=== PATIENT | male | born 1940 | race Caucasian/White ===

== ENCOUNTER → 2017-07-19 16:41 | Outpatient (CLI) | payer MEDICARE, OTHER, SELFPAY ==
--- NOTE | 2017-07-19 | PROSBIL_PTH ---
PATIENT: CONNOR GU LOC: [facility] U#:[id number] AGE/SX: 84/M ROOM: RE07/19/[address]: Dr. Philip Pennington MD : 1940 BED: DIS: SPEC #: [id number] RECD: 07/20/17 07:53 STATUS: PINKY REYES #: [id number] CHRISTIANO: 07/19/17 00:[address]: Philip Pennington DEPT: SURGICAL PATHOLOGY RECD BY: Aroldo Allan Tissues: A - PROSTATE RIGHT B - PROSTATE RIGHT C - PROSTATE RIGHT D - PROSTATE LEFT E - PROSTATE LEFT F - PROSTATE LEFT Procedures: PROSTATE BX HEADER OPERATION: Prostate biopsy PRE-OP DIAGNOSIS: Elevated PSA TISSUE SUBMITTED: A - Right apex, B - Right mid, C - Right base, D - Left apex, E - Left mid, F - Left base MICROSCOPIC DIAGNOSIS A. Right prostate, apex, core biopsy: Prostatic tissue, negative for malignancy. Focal mild chronic inflammation. B. Right prostate, mid, core biopsy: Prostatic tissue, negative for malignancy. Focal mild chronic inflammation. C. Right prostate, base, core biopsy: Prostatic tissue, negative for malignancy. D. Left prostate, apex, core biopsy: Prostatic adenocarcinoma: Jaci grade: 5+4=9 Number of cores involved: See comment. Proportion of tissue involved: ~60% Perineural invasion: Not identified. Greatest tumor length: 0.4 cm Chronic inflammation. E. Left prostate, mid, core biopsy: Prostatic adenocarcinoma: Cassatt grade: 5+5=10 Number of cores involved: 1 out of 2 Proportion of tissue involved: ~5-10% Perineural invasion: Not identified. Greatest tumor length: 0.2 cm See comment. F. Left prostate, base, core biopsy: Prostatic tissue, negative for malignancy. See comment. SJ:rg 07/23/17 COMMENT D. The specimen is fragmented and the exact number of cores involved cannot be assessed. E & F. Immunohistochemistry ([id number]) supports the above diagnosis. MICROSCOPIC DESCRIPTION Slides are reviewed. GROSS DESCRIPTION A - Received is one container designated prostate, right apex. The specimen consists of two elongated fragments of light cooper-white soft tissue measuring 1.2 and 1.5 cm in length and 0.1 cm in diameter. The specimen is totally submitted in one cassette. B - Received is one container designated prostate, right mid. The specimen consists of two elongated fragments of light cooper-white soft tissue measuring 1.2 and 1.8 cm in length and 0.1 cm in diameter. The specimen is totally submitted in one cassette. C - Received is one container designated prostate, right base. The specimen consists of two elongated fragments of light cooper-white soft tissue each measuring 1.2 cm in length and 0.1 cm in diameter. The specimen is totally submitted in one cassette. D - Received is one container designated prostate, left apex. The specimen consists of five elongated fragments of light cooper-white soft tissue measuring 0.3 to 0.5 cm in length and 0.1 cm in diameter. The specimen is totally submitted in one cassette. E - Received is one container designated prostate, left mid. The specimen consists of two elongated fragments of light cooper-white soft tissue measuring 0.3 and 1 cm in length and 0.1 cm in diameter. The specimen is totally submitted in one cassette. F - Received is one container designated prostate, left base. The specimen consists of two elongated fragments of light cooper-white soft tissue measuring 0.8 and 1.2 cm in length and 0.1 cm in diameter. The specimen is totally submitted in one cassette. / SJ:rg 07/20/17 TC:0 CPT: G0146
--- NOTE | 2017-07-19 | IMM_PTH ---
PATIENT: CONNOR GU LOC: [facility] U#:[id number] AGE/SX: 84/M ROOM: RE07/19/[address]: Dr. Philip Pennington MD : 1940 BED: DIS: SPEC #: [id number] RECD: 07/23/17 11:32 STATUS: PINKY RECarmen #: [id number] CHRISTIANO: 07/19/17 00:[address]: Philip Pennington DEPT: IMMUNOHISTOCHEMISTRY RECD BY: Natty Harrington ENTERED: 07/23/17 11:34 SP TYPE: IMMUNO OTHR DR: Miranda Jacobs, FOOD COURT TEAM MEMBER-C Tissues: E - PROSTATE LEFT F - PROSTATE LEFT Procedures: 34BE12 (add) P40 (add) 34BE12 (initial) PHYSICIAN & INSTITUTION [place] [id number] SPECIMEN INFORMATION: Tissue Source: E - Left prostate, mid, core biopsy, F - Left prostate, base, core biopsy Clinical Info: Elevated PSA Specimen Number: [id number] E & F CPT code: 99482, 12065 x3 METHODOLOGY: Deparaffinized sections of prefer/formalin-fixed tissue or PAP/DQ stained slides are incubated with monoclonal/polyclonal antibodies/oligonucleotide probes. Localization is made via biotin free immunoperoxidase method. Appropriate controls are performed and reacted as expected. Results on target cell population are indicated in the following table: RESULTS: ANTIBODY / CLONE RESULT Block E P40 (BC28) negative 34BE12 (34BE12) negative Block F P40 (BC28) positive 34BE12 (34BE12) positive These tests were developed and their performance characteristics determined by [facility]. They may not have been cleared or approved by the U.S. Food and Drug Administration. The FDA has determined that such clearance or approval is not necessary. INTERPRETATION: E. Left prostate, mid, core biopsy: Adenocarcinoma. F. Left prostate, base, core biopsy: Negative for malignancy. SJ:sheng 07/23/17
== END ==
PROVIDERS: Family Provider Nurse Practitioner Family; PCP Nurse Practitioner Family; Visit Provider Urology
DX: R97.20 Elevated prostate specific antigen [PSA] (principal)
CPT/HCPCS: 88305; 88341; 88342; G0416

== ENCOUNTER → 2017-08-03 07:35 | Outpatient (CLI) | payer MEDICARE, OTHER, SELFPAY ==
--- NOTE | 2017-08-03 07:38 | NM_ITS ---
CLINICAL: 77-year-old male with apparent history of carcinoma of the prostate. WHOLE BODY 99m Tc MDP RADIONUCLIDE BONE SCINTIGRAPHY COMPARISON: None available FINDINGS: Following the intravenous administration of 25.0 mCi of 99m Tc MDP, whole body bone images reveal: 1. Increased radiopharmaceutical concentration is defined in the 12th thoracic vertebra posteriorly on the left, third-fifth lumbar vertebra posteriorly on the left and right, left posterior sacrum, the acromioclavicular and sternoclavicular compartments of both shoulders, the right ankle articulation. 2. The remaining skeletal structures are scintigraphically unremarkable with normal-appearing renal images and urinary bladder activity identified. NM/Bone Scan Whole Body IMPRESSION: 1. The increase in radiopharmaceutical concentration identified in the thoracic and lumbar spine, sacrum, bilateral shoulders, the right ankle is most consistent with degenerative arthritis. 2. There is no definitive typical scintigraphic evidence of skeletal metastatic disease on the current examination. Electronically Signed: Markell Canales DO at 8:03 EDT Tel , Service support ,
== END ==
PROVIDERS: Family Provider Nurse Practitioner Family; PCP Nurse Practitioner Family; Visit Provider Urology
DX: C61 Malignant neoplasm of prostate (principal)
CPT/HCPCS: 78306

== ENCOUNTER → 2017-08-06 15:35 | Outpatient (CLI) | payer MEDICARE, OTHER, SELFPAY ==
--- NOTE | 2017-08-06 15:42 | CT_ITS ---
STUDY: CT ABDOMEN AND PELVIS WITH CONTRAST REASON FOR EXAM: Male, 77 years old. PROSTATE CANCER NEW DIAGNOSIS RADIATION DOSAGE (If Supplied By Facility): CTDIvol = ( 10.06 ) mGy, DLP = ( 812.25 ) mGycm TECHNIQUE: Transaxial images were obtained from the dome of the diaphragm to the symphysis pubis without oral contrast. 100 ml of Isovue 300 contrast was administered. Sagittal and coronal images were reconstructed. Individualized dose optimization techniques were used for this CT. COMPARISON: None. FINDINGS: Calcified granuloma of left lower lobe. The visualized portions of the heart are within normal limits. Normal liver. There are multiple gallstones. Normal spleen. Normal pancreas. Normal bilateral adrenal glands. Normal right kidney. There is a 43 mm hypodensity of the Left kidney. This is 13.9 Hounsfield units. Normal visualized stomach. Normal small intestine. Stool throughout the colon. The appendix is visualized and appears normal. There are multiple diverticuli of the colon. There is diverticulosis but no radiographic signs for diverticulitis. There are calcifications of the abdominal aorta and vascular structures. This is consistent for atherosclerotic disease. There is no abdominal aortic aneurysm. Normal inferior vena cava. Subcentimeter mesenteric lymph nodes. Normal urinary bladder. There are prostatic calcifications.Spinal fixation hardware is noted. There is a small umbilical hernia containing fat. There are degenerative changes of the osseous structures. 4.1 mm sclerotic focus in the right iliac bone. This may be a bone island. Series [address]/Abdomen/Pelvis WITH Contrast IMPRESSION: Cholelithiasis. Simple left renal cyst. Constipation There are multiple diverticuli of the colon. There is diverticulosis but no radiographic signs for diverticulitis. There is a small umbilical hernia containing fat. 4.1 mm sclerotic focus in the right iliac bone. This may be a bone island. Other findings as above. Electronically Signed: Janes Benson MD at 16:32 EDT , Service support ,
[2017-08-06 16:01] LABS: CREATININE FINGERSTICK 0.6 mg/dL (0.70-1.30); EGFR FINGERSTICK > 60.0000 mL/min (>60)
== END ==
PROVIDERS: Family Provider Nurse Practitioner Family; PCP Nurse Practitioner Family; Visit Provider Urology
DX: C61 Malignant neoplasm of prostate (principal)
CPT/HCPCS: 74177; Q9967

== ENCOUNTER → 2017-08-30 09:14 | Outpatient (CLI) | payer MEDICARE, OTHER, SELFPAY ==
--- NOTE | 2017-08-30 09:26 | MRI_ITS ---
STUDY: MR PELVIS WITH T WITHOUT CONTRAST REASON FOR EXAM: Male, 77 years old. History of prostrate carcinoma. TECHNIQUE: Standardized fat and water weighted pulse sequences were obtained in all 3 orthogonal planes, pre-and post contrast administration. 8 ml of Gadavist contrast material was administered intravenously for the contrast portion of the examination. COMPARISON: CT abdomen/pelvis: 08/06/2017. FINDINGS: Image quality of the right hemipelvis is somewhat hampered by metallic susceptibility artifact from patient's total right hip arthroplasty. The prostate gland is enlarged(5.8 x 5.7 x 4.8 cm) diffusely heterogenous in signal intensity due to multiple variable size degenerated cystic nodules, the largest is 2.8 x 2.4 cm present superiorly projecting into the bladder base. There is a smooth capsular bulge with no demonstrable stranding of fat outside prostrate. Seminal vesicles appear symmetrical. No pelvic lymphadenopathy demonstrated. There is diffuse up to 4.5 mm wall thickening of the urinary bladder. Unremarkable visualized small intestine. There are colonic diverticula of the sigmoid colon consistent with chronic diverticulosis. There is no pelvic fluid. There is diffuse atherosclerotic calcification of the pelvic arteries with elongation and tortuosity. There are diffuse degenerative changes of the visualized lumbar spine. MRI/Pelvis W/WO Contrast IMPRESSION: Enlarged prostrate gland, diffusely heterogenous in signal intensity with diagnostic uncertainty. Multifocal disease is not ruled out. No evidence of capsular penetration/extracapsular extension of the disease demonstrated. Multi quadrant transrectal ultrasound(TRUS) or MRI guided prostate biopsies is recommended for tissue diagnosis. Electronically Signed: Prudence Mustafa MD at 8:34 EDT Tel , Service support ,
== END ==
PROVIDERS: Family Provider Nurse Practitioner Family; PCP Nurse Practitioner Family; Visit Provider Urology
DX: C61 Malignant neoplasm of prostate (principal)
CPT/HCPCS: 72197; A9585

== ENCOUNTER 2017-09-12 05:55 | Inpatient (IN) | payer MEDICARE, OTHER, SELFPAY ==
[2017-09-06 15:04] VITALS: BP 117/71; PULSE 55; RESP 20; TEMP 36.6; O2SAT 97; BMI 24.6
--- NOTE | 2017-09-06 15:26 | SDCEKG_ITS ---
Test Reason : Blood Pressure : / mmHG Vent. Rate : 053 BPM Atrial Rate : 053 BPM P-R Int : 160 ms QRS Dur : 098 ms QT Int : 456 ms P-R-T Axes : 050 006 039 degrees QTc Int : 427 ms Sinus bradycardia Otherwise normal ECG Confirmed by JONATHAN RAMSAY ([id number]), multimedia editor JAYLEN STEVENSON ([id number]) on 09/10/2017 2:50:13 PM Referred By: Philip Pennington Confirmed By:JONATHAN RAMSAY
[2017-09-06 16:03] LABS: Hematocrit 40.3 % (40-54); Hemoglobin 13.9 g/dl (13.0-16.5); Mean Corp Hgb Conc 34.5 g/gl (32-36); Mean Corpuscular Hgb 33.1 pg (27.0-32.0); Mean Platelet Vol. 9.5 fl (6.2-12.0); Platelet Count 170 K/mm3 (150-450); RBC Distribution Width CV 12.5 % (11.6-14.6); RBC Distribution Width SD 42.6 fl (35.1-43.9); White Blood Count 4.1 K/mm3 (4.4-11.0)
[2017-09-06 16:14] LABS: Scan Indicated on CBC? Y/N NO
[2017-09-12] VITALS (34 sets, daily range): BP systolic 68–155; BP diastolic 49–84; PULSE 51–90; RESP 9–21; TEMP 36.1–37; O2SAT 89–100; BMI 24.6; BMI 26.4
--- NOTE | 2017-09-12 07:45 | PROST_PTH ---
PATIENT: CONNOR GU LOC: [facility] U#:[id number] AGE/SX: 77/M ROOM: AR312 RE09/12/[address]: Dr. Philip Pennington MD : 1940 BED: 1 DIS: 09/17/2017 SPEC #: [id number] RECD: 09/12/17 14:07 STATUS: PINKY REYES #: [id number] CHRISTIANO: 09/12/17 07:[address]: Philip Pennington DEPT: SURGICAL PATHOLOGY RECD BY: Aroldo Allan ENTERED: 09/12/17 14:08 SP TYPE: PROSTATE OTHR DR: Miranda Jacobs, RHEUMATOLOGY NURSE-C Tissues: A - Prostate, NOS B - Lymph node of pelvis, NOS C - Lymph node of pelvis, NOS Procedures: Surgery Specimen Level V Surgery Specimen Level HEADER OPERATION: Laparoscopic robotic radical prostatectomy with intraoperative PRE-OP DIAGNOSIS: Prostate cancer; elevated PSA TISSUE SUBMITTED: A. Prostate, B. Right pelvic lymph node, C. Left pelvic lymph node MICROSCOPIC DIAGNOSIS A. Prostate, radical prostatectomy: Prostate adenocarcinoma. See cancer summary below. B. Right pelvic lymph node, biopsy: One lymph node, negative for metastatic carcinoma. C. Left pelvic lymph node, biopsy: A piece of mature adipose tissue, negative for metastatic carcinoma. Lymph node tissue not identified. Cancer Summary (including specimen A, B and C): PROSTATE CANCER (RADICAL) SUMMARY: Procedure - Radical prostatectomy. Prostate size - 6 cm superoinferiorly, 5.8 cm transversely, 4.5 cm anteroposteriorly Prostate weight - 97 gm Lymph node sampling - pelvic lymph node dissection Histologic type - adenocarcinoma (acinar, not otherwise specified) Histologic grade (Davenport Pattern): Primary pattern - 5 Secondary pattern - 4 Tertiary pattern - 3 Total Davenport score: 9 Tumor Quantitation: Proportion (%) of prostate involved by tumor - about 15-20% Tumor size - See comment Extraprostatic extension - not identified Seminal vesicle invasion - not identified Margins - uninvolved by invasive carcinoma Treatment effect on carcinoma - no known presurgical therapy Lymph-Vascular invasion - not identified Perineural invasion - present Regional lymph nodes - Number examined - 1 Number involved - 0 Distant metastasis - NA Additional pathologic findings: - benign prostatic nodular hyperplasia, glandular and stromal type. - chronic inflammation. Ancillary studies - not performed. PATHOLOGIC STAGE: pT2c pN0 MX The above summary is in compliance with [employer] [place] [employer] (CAP) Cancer Protocols Checklist and [place] Joint Committee on Cancer (AJCC), Staging Manual, 7th Ed. COMMENT The tumor involves both right and left lobes, apical and middle portions. The tumor measures in the right lobe 1 x 1 cm (measured microscopically, and in slides #7, #10, #11 and #16). The tumor in the left lobe measures 2 x 0.9 cm (measured microscopically and present in slides #5, #8, and #9). Please make reference to previous specimen [id number] left prostate, apex, mid prostate core biopsy with diagnosis of adenocarcinoma. MICROSCOPIC DESCRIPTION Slides are reviewed. GROSS DESCRIPTION A: Received in fixative is one container labeled with the patient's name and designated prostate. The specimen consists of a prostate gland with attached right and left seminal vesicles and vas deferens. The prostate gland is smooth and glistening. No mass lesions are palpated. The prostate measures 6 cm superoinferiorly, 5.8 cm transversely and 4.5 cm anteroposteriorly. The specimen weighs 97 grams. The specimen is differentially inked as follows: anterior ? red, right half ? blue, left half ? green, and posterior surface ? black. Sections reveal a lobulated yellow-white cut surface. [employer] sections are submitted in 20 cassettes as follows: 1 ? distal urethral shave; 2 ? proximal urethral shave (bladder shave); 3 ? seminal vesicles; 4 ? prostate; most basal section; 5-8 apex; 9-16 mid portion of prostate; 17-20 basal portion of prostate. AM:sp 09/13/17 B: Received in fixative is one container labeled with the patient's name and designated right pelvic lymph node. The specimen consists of a piece of yellow adipose tissue measuring 2 x 1.5 x 0.6 cm. No obvious lymph node is identified. The specimen is bisected and submitted entirely in 2 cassette. Sections will be submitted after overnight fixation. C: Received in fixative is one container labeled with the patient's name and designated left pelvic lymph node. The specimen consists of a piece of cooper soft tissue measuring 0.8 x 0.8 x 0.2 cm. The entire specimen is submitted in one cassette. Sections will be submitted after overnight fixation. EPHRAIM:maria isabel 09/12/17 TC:0 CPT: 27796, 45958 x2
[2017-09-12] MEDS: Cefazolin 2 GM in 0.9% Normal Saline 100 ML IV (07:52)
[2017-09-12] MEDS: Bupivacaine Mpf 0.5% 30 ML VIAL (12:00)
--- NOTE | 2017-09-12 12:32 | OP.PCM_ITS ---
Report of Operation Date of Procedure: 09/12/17 Pre-Operative Diagnosis: Prostate cancer high risk disease. Post-Operative Diagnosis: Same Surgery/Procedure Performed:: Laparoscopic robotic assisted radical prostatectomy, bilateral pelvic lymph node dissection, EMG monitoring of the pelvic nerves and sphincter, suture suspension of the urethra. Description of Surgical Findings:: 77-year-old male taken back to the operating room after smooth induction of general anesthesia he was placed supine on the table, abdomen was shaved prepped and draped in usual sterile fashion, made a incision in the umbilicus he had a small umbilical hernia the size of my pinky and then I used a Veress needle and insufflated the peritoneum with CO2 gas we placed our ports docked the robot I first reflected the colon off the lateral wall he had a prior mesh placed that was evident on the patient's left inguinal area extending down to the pelvis, I then was able to reflect the colon out of the pelvis dissected the seminal vesicle and vas deferens of the right and left side behind the prostate these were dissected cleared created a space between the rectum and the prostate we then dropped the bladder and this is a very difficult procedure because the bladder was very adherent to the prior mesh took a lot of dissection ?2 get the bladder off the mesh eventually the bladder was released off the mesh put on traction and then proceeded with lymph node dissection this was done on the right and left side in the whey department operator space the lymph node tissue was removed actually there was no enlarged lymph nodes look normal size looking lymph nodes after completing the lymph node dissection on the right whey department operator space and left the operating up whey department operator space that I went to the prostate incised the endopelvic fascia opened up the apex put a stitch in dorsal vein complex then pulled back to the bladder and prostate junction dissected between the bladder and prostate with electrocautery centimeter wide opening in the bladder and then dissected until I identified the trigone in the left and right ureteral orifice I then dissected behind the trigone down to the vas deferens and seminal vesicles, we then placed the EMG electrodes into the pelvis we checked the right side and the left side down the action potential and nerves running in the right and left side I then elevated the prostate up and then we put clips through the pedicles and then identified the neurovascular bundle and freed this off the prostate off the right side is can have a very difficult dissection on the right side all the way up to the apex at the end of the dissection we check for EMG activity and is still present we then went back to the left side and place clips to the pedicle on the left side and then dissected the neurovascular bundle off the left side of the prostate and then check for EMG activity and this was present we then transected the dorsal vein complex place an extra stitch in the dorsal vein complex then transected through the urethra and then transected to the posterior aspect of the prostate we do not be his attachment to the rectum being very careful to dissect in this area. We inspected and checked the vault very carefully after removing the prostate we then did a reconstruction of the bladder neck reverse tennis racquet formation and then did a anastomosis and supra suture suspension of the urethra to the to the urethral stump over a catheter from 6:00 to 12:00. Once this was completed flush the catheter there was one small gap posterior this is recommended as an extra stitch was placed and there was no gap. Did not leave a drain in talk to the bladder flap back over the bladder catheter was left in place and the patient anesthetic was reversed taken back to the PACU in good condition inspected the prostate there is no major violations and the anastomosis went well will leave the catheter in for 2 weeks because of the complex reconstruction patient anesthetic was reversed taken back to PACU in good condition. Type of Anesthesia:: General Drains: reardon - Admit VTE Documentation VTE Present on Admission: No VTE Mechan Device Prophylaxis: SCD's VTE Pharm Prophylaxis ordered?: No Reason prophylaxis not ordered:: Treatment Not Indicated
[2017-09-12] MEDS: 0.9% NaCl Peripheral Flush Adult/Peds IV (13:02)
[2017-09-12 15:11] LABS: Absolute Lymphocyte Count 0.24 X10^3/ul (0.83-4.51); Absolute Neutrophil Count 5.7 X10^3/uL (2.0-7.7); Hematocrit 21.2 % (40-54); Hemoglobin 7.1 g/dl (13.0-16.5); Lymphocyte # 0.24 X10^3/ul (4.0); Lymphocyte % 3.9 % (19-41); Mean Corp Hgb Conc 33.5 g/gl (32-36); Mean Corpuscular Hgb 32.1 pg (27.0-32.0); Mean Corpuscular Volume 95.9 fL (80-94); Mean Platelet Vol. 8.5 fl (6.2-12.0); Monocyte# 0.21 X10^3/uL; Monocyte% 3.4 % (0-10); Neutrophil # 5.65 X10^3/uL (2.7-7.7); Neutrophil % 92.7 % (47-70); Platelet Count 118 K/mm3 (150-450); RBC Distribution Width CV 12.7 % (11.6-14.6); RBC Distribution Width SD 44.3 fl (35.1-43.9); Red Blood Count 2.21 M/mm3 (4.6-6.2); White Blood Count 6.1 K/mm3 (4.4-11.0)
[2017-09-12 15:21] LABS: Differential Indicated SCAN CRITERIA MET; POSITIVE COUNT NO; POSITIVE DIFFERENTIAL YES; POSITIVE MORPHOLOGY NO
[2017-09-12 15:48] LABS: Differential Comment SCANNED
--- NOTE | 2017-09-12 15:58 | SUR.PHASEI ---
Addendum entered by Christine Morris 09/12/17 18:56: PACU VITAL SIGNS: PLEASE SEE PRINT OUT IN CHART. Original Note: Addendum entered by Christine Morris 09/12/17 18:54: AT 1559 IN PACU, DR OLIVARES AT BEDSIDE TO EVALUATE. Original Note: Addendum entered by Christine Morris 09/12/17 18:51: AT 1540, ABDOMEN SOFT, NON-TENDER, NO DISTENTION. TURNED PATIENT ONTO LEFT SIDE TO EVALUATE LOWER BACK WHICH SHOWS NO SIGN OF BLEEDING, NO PAIN, TENDERNESS, DISCOLORATION, OR EDEMA NOTED. Original Note: Addendum entered by Christine Morris 09/12/17 18:47: AT 1518 IN PACU, PATIENT HAS APPROX 100 ML BLOODY URINE IN RIVAS CATHETER AFTER RECEIVING 1,000 ML HESPAN AND ON BAG #6 OF LR 1,000 ML, NO CLOTS NOTED. ABDOMEN SOFT, NON-TENDER, NO DISTENTION. NOTIFIED DR ALCALA WHO ORDERED T & C FOR [address] OLIVARES TO UPDATE. Original Note: Addendum entered by Christine Morris 09/12/17 18:44: AT 1501 IN PACU, DR ALCALA UPDATED THAT PATIENT CONTINUES TO BE HYPOTENSIVE, BRADYCARDIC IN 40'S AND 50'S WITH INCREASING NUMBER OF PVC'S. PATIENT CONTINUES TO DENY ANY ABDOMINAL OR LOW BACK DISCOMFORT. AWAITING CBC RESULTS. Original Note: Addendum entered by Christine Morris 09/12/17 18:32: AT 1435 IN PACU, PARKER SALGADO AND FREDRICK CONFERRING AT BEDSIDE, CONDITION UPDATE GIVEN. PATIENT SLEEPING INTERMITTANTLY, DENIES PAIN OR NAUSEA. Original Note: Addendum entered by Christine Morris 09/12/17 18:24: AT 1415 IN PACU, CONTINUES TO BE HYPOTENSIVE AND DUSKY, DENIES FURTHER ABDOMINAL PAIN. NO ABDOMINAL DISTENTION NOTED, SOFT. TURNED PATIENT ONTO LEFT SIDE TO EVALUATE FOR POSSIBLE RETROPERITONEAL BLEEDING, SKIN SOFT/PINK/WARM/DRY, NO EDEMA, NO TENDER OR FIRM AREAS ON PALPATION. RIAVS CATHETER DRAINING SMALL AMOUNT BLOODY URINE BUT NO CLOTS NOTED. DR SALGADO NOTIFIED, ORDERED ADDITIONAL HESPAN 500 ML BOLUS WELL TO CONTINUE IVF. CALLED PHARMACY TO SEND HESPAN TO PACU ROBBY. Original Note: Addendum entered by Christine Morris 09/12/17 18:16: AT 1331 IN PACU, DR SALGADO NOTIFIED THAT PATIENT CONTINUES TO BE HYPOTENSIVE IN 90'S TO LOW 100'S, BRADYCARDIC IN 50'S, REPORTING MILD ABDOMINAL PAIN, HAVE BEEN GIVING IVF. NEW ORDER FOR HESPAN 500 ML, CONTINUE TO BOLUS WITH IVF. Original Note: Addendum entered by Christine Morris 09/12/17 16:46: ON ARRIVAL TO PACU AT 1233, PATIENT DUSKY, HYPOTENSIVE W/ SBP 60-70'S. LALITHA HU, BUFFER COPPER, AWARE OF VS. ABDOMEN SOFT, NON-TENDER, SCANT AMOUNT BLOODY URINE IN RIVAS CATHETER. LUNGS CLEAR, NO CARDIAC HX PER ANESTHESIA REPORT. PLACED IN [place], INCREASED IVF. BP INCREASING TO 80-90'S. BASELINE SBP 150'S ON ARRIVAL TODAY, BUT ON DAY OF P.A.T., SBP 117. PATIENT DENIES ANY ABDOMINAL PAIN, NAUSEA, SKIN WARM/DRY. MONITORING RESPONSE. Original Note: Addendum entered by Christine Morris 09/12/17 16:16: BACK TO O.R. FOR EXPLORATORY LAP FOR POSSIBLE BLEEDING. BLOOD BAND NOTIFIED THAT 2 UNITS O NEGATIVE BLOOD NEEDED FOR STAT TRANSFUSION. Original Note: IN PACU: DR OLIVARES HERE EVALUATING PATIENT'S CONTINUED HYPOTENSION AND LOW U/O POST-OP. CONTINUES TO BE BRADYCARDIC W/ OCCAS PVC'S. ABDOMEN HAS NOT BEEN DISTENDED, NO EVIDENCE OF RETROPERITONEAL BLEED ON PALPATION. DR ALCALA AT BEDSIDE CONSULTING WITH DR OLIVARES.
[2017-09-12 16:18] LABS: Absolute Lymphocyte Count 0.38 X10^3/ul (0.83-4.51); Absolute Neutrophil Count 7.9 X10^3/uL (2.0-7.7); Hematocrit 18.4 % (40-54); Hemoglobin 6.3 g/dl (13.0-16.5); Lymphocyte # 0.38 X10^3/ul (4.0); Lymphocyte % 4.4 % (19-41); Mean Corp Hgb Conc 34.2 g/gl (32-36); Mean Corpuscular Hgb 32.8 pg (27.0-32.0); Mean Corpuscular Volume 95.8 fL (80-94); Mean Platelet Vol. 8.5 fl (6.2-12.0); Monocyte% 4.6 % (0-10); Neutrophil # 7.86 X10^3/uL (2.7-7.7); Neutrophil % 90.9 % (47-70); Platelet Count 133 K/mm3 (150-450); RBC Distribution Width CV 12.9 % (11.6-14.6); RBC Distribution Width SD 44.9 fl (35.1-43.9); Red Blood Count 1.92 M/mm3 (4.6-6.2); White Blood Count 8.7 K/mm3 (4.4-11.0)
[2017-09-12 16:19] LABS: Differential Indicated SCAN CRITERIA MET; POSITIVE COUNT NO; POSITIVE DIFFERENTIAL YES; POSITIVE MORPHOLOGY NO
[2017-09-12 16:35] LABS: Anion Gap 7 (5-15); BUN 15 mg/dL (7-18); BUN/Creat Ratio 16.7 RATIO (10-20); Chloride 113 mmol/L (98-107); EST Glomerular Filtration Rate 88 mL/min (>60); Est Glom Filt Rate - Afr Amer 106 mL/min (>60); Estimated Creatinine Clearance 73.23 ml/min; Glucose 207 mg/dL (74-106); Sodium Level 145 mmol/L (136-145)
[2017-09-12] MEDS: THROMBIN (RECOMBINANT) 20,000 UNIT VIAL 20000 UNIT TOPICAL (17:16)
[2017-09-12 17:44] LABS: Absolute Lymphocyte Count 0.38 X10^3/ul (0.83-4.51); Absolute Neutrophil Count 9.3 X10^3/uL (2.0-7.7); Eosinophil# 0.01 X10^3/uL; Eosinophils% 0.1 % (0-5); Hematocrit 23.1 % (40-54); Hemoglobin 7.5 g/dl (13.0-16.5); Lymphocyte # 0.38 X10^3/ul (4.0); Lymphocyte % 3.7 % (19-41); Mean Corp Hgb Conc 32.5 g/gl (32-36); Mean Corpuscular Hgb 30.4 pg (27.0-32.0); Mean Corpuscular Volume 93.5 fL (80-94); Mean Platelet Vol. 10.6 fl (6.2-12.0); Monocyte# 0.58 X10^3/uL; Monocyte% 5.6 % (0-10); Neutrophil # 9.29 X10^3/uL (2.7-7.7); Neutrophil % 90.4 % (47-70); Platelet Count 96 K/mm3 (150-450); RBC Distribution Width CV 15.2 % (11.6-14.6); RBC Distribution Width SD 49.3 fl (35.1-43.9); Red Blood Count 2.47 M/mm3 (4.6-6.2); White Blood Count 10.3 K/mm3 (4.4-11.0)
[2017-09-12 17:45] LABS: Differential Indicated SCAN CRITERIA MET; POSITIVE COUNT NO; POSITIVE DIFFERENTIAL YES; POSITIVE MORPHOLOGY NO
[2017-09-12 17:46] LABS: Differential Comment SCANNED
[2017-09-12 17:48] LABS: International Normalized Ratio 1.6; Prothrombin Time (Protime)PT. 19.2 SECONDS (11.7-14.9)
[2017-09-12 17:49] LABS: Partial Thromboplast Time 30.5 Seconds (24.1-36.2)
[2017-09-12 18:16] LABS: ALB/GLOB Ratio 1.4 RATIO (0.9-2.4); AST(SGOT) 11 U/L (15-37); Alanine Aminotransfer ALT/SGPT < 6 U/L (16-61); Albumin, Serum 1.5 g/dL (3.2-5.0); Alkaline Phosphatase 25 U/L (45-117); Anion Gap 8 (5-15); BUN 15 mg/dL (7-18); BUN/Creat Ratio 16.9 RATIO (10-20); Chloride 112 mmol/L (98-107); Creatinine, Serum 0.88 mg/dL (0.70-1.30); EST Glomerular Filtration Rate 89 mL/min (>60); Est Glom Filt Rate - Afr Amer 108 mL/min (>60); Estimated Creatinine Clearance 74.89 ml/min; Globulin 1.1 g/dL (2.2-4.2); Glucose 190 mg/dL (74-106); Potassium 4.4 mmol/L (3.5-5.1); Protein, Total 2.6 g/dL (6.4-8.2); Sodium Level 145 mmol/L (136-145)
--- NOTE | 2017-09-12 18:17 | PCM.OPRPT ---
Report of Operation Date of Procedure: 09/12/17 Pre-Operative Diagnosis: Unstable blood pressure in the PACU Post-Operative Diagnosis: Bleeding in the abdomen and dorsal vein bleeding, bleeding from the dorsal vein complex Surgery/Procedure Performed:: Diagnostic laparoscopy and then open exploration of the abdomen and stitching of the dorsal vein complex Description of Surgical Findings:: 77-year-old male who just completed a robotic prostatectomy was taken to the PACU and immediately found to be hypotensive, after surgery the abdomen was dry there was no bleeding noticed intraoperatively. He continued to be hypotensive requiring fluid resuscitation in the PACU a hematocrit was drawn and a CBC was drawn and was found to have a very low blood count and therefore decision was made to take him back for exploration immediately suspicion of bleeding source unknown. He was taken back to the operating room at the smooth induction of general anesthesia was placed supine on the table I then opened up the umbilical incision open up the stitches of the fascia placed a port into the abdomen and the peritoneum insufflated the abdomen with CO2 gas and when I got and he had a significant amount of bright red blood inside the abdomen at this point I made the decision to go ahead and open the patient made a lower midline incision from the umbilicus down to the pubic bone provided good exposure suctioned out over a liter of blood inside the abdomen mostly from the quadrants the upper quadrants and a lot from the right upper quadrant and left upper quadrant eventually suction all that trace in the blood down to the pelvis first without maybe he was epigastric bleeding but this turned out to be clear then as a search deeper into the pelvis we eventually got the pelvis cleared out and we saw a wide open vein that was bleeding from the dorsal vein complex. At this point called in general surgeon to assist with exposure and after attempting to place several stitches then we were able to successfully stitch the dorsal vein complex and stop the bleeding in the meantime he been given 2 units of emergency O- blood and was getting his first crossmatch blood to catch up from the bleeding once the dorsal vein complex was stitched again which I did manually with 2-0 Vicryls then we packed above this with thrombin Gelfoam left pressure on this looked back again and the bleeding is stopped we then inspected the abdomen there is no other source of bleeding we then closed the midline fascia with a running 2 PDS, all sponges needle counts were accounted for the nurses reported having all their needles and sponges before closing the abdomen we then closed the skin with marla patient was extubated taken to the ICU in stable condition for close monitoring and resuscitation from postoperative hemorrhage. Type of Anesthesia:: General Drains: reardon Estimated Blood Loss (mL): 1 liter in - Admit VTE Documentation VTE Present on Admission: No VTE Mechan Device Prophylaxis: SCD's VTE Pharm Prophylaxis ordered?: No Reason prophylaxis not ordered:: Treatment Not Indicated
[2017-09-12 19:55] LABS: M R Staph aureus DNA By PCR Negative (Negative); Probe Check PASS; Specimen Processing Control PASS
[2017-09-12] MEDS: Lactated Ringers 1,000 ML 30 ML IV (20:15)
[2017-09-12] MEDS: Ciprofloxacin 400 MG/200 ML BAG 200 MG IV (21:37)
[2017-09-12 23:17] LABS: Anion Gap 14 (5-15); BUN 16 mg/dL (7-18); BUN/Creat Ratio 13.7 RATIO (10-20); Calcium,Total 7.2 mg/dL (8.5-10.1); Chloride 109 mmol/L (98-107); Creatinine, Serum 1.17 mg/dL (0.70-1.30); EST Glomerular Filtration Rate 65 mL/min (>60); Est Glom Filt Rate - Afr Amer 78 mL/min (>60); Estimated Creatinine Clearance 56.33 ml/min; Glucose 223 mg/dL (74-106); Potassium 4.7 mmol/L (3.5-5.1); Sodium Level 145 mmol/L (136-145)
[2017-09-12 23:20] LABS: Absolute Lymphocyte Count 0.96 X10^3/ul (0.83-4.51); Absolute Neutrophil Count 12.6 X10^3/uL (2.0-7.7); Hematocrit 32.3 % (40-54); Hemoglobin 10.9 g/dl (13.0-16.5); Lymphocyte # 0.96 X10^3/ul (4.0); Lymphocyte % 6.8 % (19-41); Mean Corp Hgb Conc 33.7 g/gl (32-36); Mean Corpuscular Hgb 30.2 pg (27.0-32.0); Mean Corpuscular Volume 89.5 fL (80-94); Mean Platelet Vol. 9.5 fl (6.2-12.0); Monocyte# 0.54 X10^3/uL; Monocyte% 3.8 % (0-10); Neutrophil # 12.55 X10^3/uL (2.7-7.7); Neutrophil % 89.2 % (47-70); POSITIVE COUNT NO; POSITIVE DIFFERENTIAL NO; POSITIVE MORPHOLOGY NO; Platelet Count 141 K/mm3 (150-450); RBC Distribution Width CV 15.6 % (11.6-14.6); Red Blood Count 3.61 M/mm3 (4.6-6.2); White Blood Count 14.1 K/mm3 (4.4-11.0)
[2017-09-13] VITALS (15 sets, daily range): BP systolic 108–165; BP diastolic 66–84; PULSE 77–97; RESP 16–23; TEMP 36.3–37.6; O2SAT 92–95
[2017-09-13 04:34] LABS: Hematocrit 29.2 % (40-54); Mean Corp Hgb Conc 34.2 g/gl (32-36); Mean Corpuscular Hgb 29.9 pg (27.0-32.0); Mean Corpuscular Volume 87.4 fL (80-94); Mean Platelet Vol. 9.2 fl (6.2-12.0); Platelet Count 144 K/mm3 (150-450); RBC Distribution Width SD 51.5 fl (35.1-43.9); Red Blood Count 3.34 M/mm3 (4.6-6.2); Scan Indicated on CBC? Y/N NO; White Blood Count 12.5 K/mm3 (4.4-11.0)
[2017-09-13 04:51] LABS: Anion Gap 10 (5-15); BUN 20 mg/dL (7-18); BUN/Creat Ratio 15.2 RATIO (10-20); Calcium,Total 7.4 mg/dL (8.5-10.1); Chloride 110 mmol/L (98-107); Creatinine, Serum 1.32 mg/dL (0.70-1.30); EST Glomerular Filtration Rate 56 mL/min (>60); Est Glom Filt Rate - Afr Amer 68 mL/min (>60); Estimated Creatinine Clearance 49.93 ml/min; Glucose 201 mg/dL (74-106); Potassium 4.8 mmol/L (3.5-5.1); Sodium Level 144 mmol/L (136-145)
[2017-09-13] MEDS: Carbidopa/Levodopa 25/100 Tablet PO ×3 (06:18→16:51)
[2017-09-13] MEDS: 0.9% NaCl Peripheral Flush Adult/Peds IV ×3 (06:18→21:17)
[2017-09-13] MEDS: CHLORHEXIDINE GLUC 2% CLOTH 1 EACH TOWELETTE TOPICAL (06:19)
--- NOTE | 2017-09-13 06:53 | PCM.PROGNOTE ---
Subjective: Postoperative day #1 status post a robotic radical prostatectomy who then afterwards had to be taken back to surgery emergently for postoperative bleeding from the dorsal vein complex stitches were placed the bleeding was stopped a controlled he was resuscitated in the ICU and this morning he looks good answer questions appropriately alert and awake, not passing any gas yet, but abdomen is nice and soft and benign not distended, hemoglobin hematocrit stable, creatinine 1.3 but should improve, good urine output. - Physical Exam General: Alert, Oriented x3, Cooperative HEENT: Atraumatic, PERRLA, EOMI, Normocephalic Neck: Supple, No JVD, Negative Carotid Bruits Lungs: Clear to auscultation, Normal air movement Cardiovascular: Regular rate, No murmurs Abdomen: Bowel Sounds Present, Soft, Non Tender Extremities: No edema, Capillary Refill Less than 3 Seconds Skin: No rashes, No breakdown Musculoskeletal: No Tenderness to Palpation of Joints or Extremities Neurological: Cranial nerves II-XII grossly intact Psych/Mental Status: Normal Affect, Appropriate Vital Signs Temp Pulse Resp BP Pulse Ox 98.4 F 86 19 H 116/68 94 09/13/17 06:00 09/13/17 06:00 09/13/17 06:00 09/13/17 06:00 09/13/17 06:47 Oxygen Flow Rate (L/min) 2 Oxygen Delivery Method Room Air Weight: 84 kg Body Mass Index (BMI) 26.4 Intake and Output for Last 24 Hours 09/11/17 09/12/17 09/13/17 23:59 23:59 23:59 Intake Total 79273 / 72892 500 / 500 Output Total 2675 / 2675 200 / 200 Balance 9091 / 9091 300 / 300 Laboratory Tests Past 24 Hrs 09/12/17 09/12/17 09/12/17 15:00 16:09 16:09 WBC 6.1 8.7 RBC 2.21 L 1.92 L Hgb 7.1 L 6.3 L Hct 21.2 L 18.4 L MCV 95.9 H 95.8 H MCH 32.1 H 32.8 H MCHC 33.5 34.2 RDW 12.7 12.9 RDW Differential 44.3 H 44.9 H Plt Count 118 L 133 L MPV 8.5 8.5 Immature Gran % (Auto) 0.000 0.100 Neut % (Auto) 92.7 H 90.9 H Lymph % (Auto) 3.9 L 4.4 L [place] % (Auto) 3.4 4.6 Eos % (Auto) 0.0 0.0 Baso % (Auto) 0.0 0.0 Absolute Neuts (auto) 5.7 7.9 H Absolute Lymphs (auto) 0.24 L 0.38 L Total Counted Not Reportable Not Reportable Differential Comment SCANNED PT INR APTT Sodium Potassium Chloride Carbon Dioxide Anion Gap BUN Creatinine Estim Creat Clear Calc Est GFR (MDRD) Af Amer Est GFR (MDRD) Non-Af BUN/Creatinine Ratio Glucose Calcium Total Bilirubin AST ALT Alkaline Phosphatase Total Protein Albumin Globulin Albumin/Globulin Ratio MRSA (PCR) Blood Type O POSITIVE Antibody Screen NEGATIVE Crossmatch See Detail 09/12/17 09/12/17 09/12/17 16:09 16:09 17:20 WBC RBC Hgb Hct MCV MCH MCHC RDW RDW Differential Plt Count MPV Immature Gran % (Auto) Neut % (Auto) Lymph % (Auto) [place] % (Auto) Eos % (Auto) Baso % (Auto) Absolute Neuts (auto) Absolute Lymphs (auto) Total Counted Differential Comment PT 19.2 H INR 1.6 APTT 30.5 Sodium 145 Potassium 4.0 Chloride 113 H Carbon Dioxide 25.0 Anion Gap 7 BUN 15 Creatinine 0.90 Estim Creat Clear Calc 73.23 Est GFR (MDRD) Af Amer 106 Est GFR (MDRD) Non-Af 88 BUN/Creatinine Ratio 16.7 Glucose 207 H Calcium 7.0 L Total Bilirubin AST ALT Alkaline Phosphatase Total Protein Albumin Globulin Albumin/Globulin Ratio MRSA (PCR) Blood Type Antibody Screen Crossmatch See Detail 09/12/17 09/12/17 09/12/17 17:20 17:20 18:15 WBC 10.3 RBC 2.47 L Hgb 7.5 L Hct 23.1 L MCV 93.5 MCH 30.4 MCHC 32.5 RDW 15.2 H RDW Differential 49.3 H Plt Count 96 L MPV 10.6 Immature Gran % (Auto) 0.200 Neut % (Auto) 90.4 H Lymph % (Auto) 3.7 L [place] % (Auto) 5.6 Eos % (Auto) 0.1 Baso % (Auto) 0.0 Absolute Neuts (auto) 9.3 H Absolute Lymphs (auto) 0.38 L Total Counted Not Reportable Differential Comment SCANNED PT INR APTT Sodium 145 Potassium 4.4 Chloride 112 H Carbon Dioxide 25.0 Anion Gap 8 BUN 15 Creatinine 0.88 Estim Creat Clear Calc 74.89 Est GFR (MDRD) Af Amer 108 Est GFR (MDRD) Non-Af 89 BUN/Creatinine Ratio 16.9 Glucose 190 H Calcium 7.0 L Total Bilirubin 0.60 AST 11 L ALT < 6 L Alkaline Phosphatase 25 L Total Protein 2.6 L Albumin 1.5 L Globulin 1.1 L Albumin/Globulin Ratio 1.4 MRSA (PCR) Negative Blood Type Antibody Screen Crossmatch 09/12/17 09/12/17 09/13/17 22:55 22:55 04:25 WBC 14.1 H 12.5 H RBC 3.61 L 3.34 L Hgb 10.9 L 10.0 L Hct 32.3 L 29.2 L MCV 89.5 87.4 MCH 30.2 29.9 MCHC 33.7 34.2 RDW 15.6 H 16.0 H RDW Differential 51.0 H 51.5 H Plt Count 141 L 144 L MPV 9.5 9.2 Immature Gran % (Auto) 0.200 Neut % (Auto) 89.2 H Lymph % (Auto) 6.8 L [place] % (Auto) 3.8 Eos % (Auto) 0.0 Baso % (Auto) 0.0 Absolute Neuts (auto) 12.6 H Absolute Lymphs (auto) 0.96 Total Counted Not Reportable Differential Comment PT INR APTT Sodium 145 Potassium 4.7 Chloride 109 H Carbon Dioxide 22.0 Anion Gap 14 BUN 16 Creatinine 1.17 Estim Creat Clear Calc 56.33 Est GFR (MDRD) Af Amer 78 Est GFR (MDRD) Non-Af 65 BUN/Creatinine Ratio 13.7 Glucose 223 H Calcium 7.2 L Total Bilirubin AST ALT Alkaline Phosphatase Total Protein Albumin Globulin Albumin/Globulin Ratio MRSA (PCR) Blood Type Antibody Screen Crossmatch 09/13/17 04:25 WBC RBC Hgb Hct MCV MCH MCHC RDW RDW Differential Plt Count MPV Immature Gran % (Auto) Neut % (Auto) Lymph % (Auto) [place] % (Auto) Eos % (Auto) Baso % (Auto) Absolute Neuts (auto) Absolute Lymphs (auto) Total Counted Differential Comment PT INR APTT Sodium 144 Potassium 4.8 Chloride 110 H Carbon Dioxide 24.0 Anion Gap 10 BUN 20 H Creatinine 1.32 H Estim Creat Clear Calc 49.93 Est GFR (MDRD) Af Amer 68 Est GFR (MDRD) Non-Af 56 L BUN/Creatinine Ratio 15.2 Glucose 201 H Calcium 7.4 L Total Bilirubin AST ALT Alkaline Phosphatase Total Protein Albumin Globulin Albumin/Globulin Ratio MRSA (PCR) Blood Type Antibody Screen Crossmatch Medical Necessity - Tobacco Use Smoking Status: Never smoker Assessment/Plan 77-year-old male status post robotic radical prostatectomy for prostate cancer, postoperative bleeding required exploratory laparotomy and stitching of the dorsal vein complex and placement of thrombin and Gelfoam. Today he can get out of bed up to chair will use [place] for pain no Toradol because the risk of bleeding. And also elevated creatinine. Will stay on liquid diet today no more than that. He can transition to the regular floor from the ICU since he stable.
--- NOTE | 2017-09-13 07:49 | PCM.CON.CC ---
Problem List (1) Prostate cancer Status: Acute (2) History of back surgery Status: Resolved (3) Parkinsons disease Status: Chronic Reason for Consult Date of Consultation: 09/13/17 Reason for Consultation: Hemorrhagic shock History of Present Illness: The patient is a 77 year old M, with past medical history listed below, who presented to [facility] on 09/12/2017 secondary to an elective prostatectomy secondary to prostate cancer. Patient reportedly tolerated initial surgery well and was sent to the PACU at approximately noon. During patient's time in the PACU, patient was noted to be hypotensive. A repeat H&H showed significant drop in hemoglobin. Patient was taken back for an emergent exploration with laparotomy. A bleeding vessel was found and hemostasis was achieved. Given patient's significant hypotension, patient was transferred to the intensive care unit postoperatively. Patient was able to be extubated prior to being transferred to the intensive care unit. This morning, patient reports good response to therapy. Patient is denying any pain at this time while not moving. Patient does report some discomfort with movement. Patient denies any flatus at this time. Nursing reports patient did have some hematuria overnight, but this did respond to flushing. Patient denies any cardiac history in the past. Patient did receive a total of 4 units of packed red blood cells over the last 24 hours, but has been doing well on room air. Review of systems otherwise negative ?10 systems. Did discuss personally with urology. Past Medical History Past Medical History (Chronic Problems): Chronic Problems Parkinsons disease (Chronic) Allergies No Known Allergies Allergy (Verified 09/06/17 14:49) Home Medications: Ambulatory Orders Medication Instructions Recorded Ascorbic Acid [Vitamin C] 2,000 mg PO DAILY 09/06/17 Carbidopa/Levodopa 25/100 [Sinemet] 2 tablet PO TIDAC 09/06/17 Cholecalciferol (Vitamin D3) 5,000 unit PO DAILY 09/06/17 [Vitamin D3] Co Q10 200 [Co Q-10] 100 mg PO DAILY 09/06/17 L.acidoph,Paracasei, B.lactis 1 each PO DAILY 09/06/17 [Probiotic] Liposomal Glutathione 2 spray PO BID 09/06/17 Magnesium 300 mg PO DAILY 09/06/17 [place]-3 Fatty Acids/Fish Oil [Fish 1 each PO DAILY 09/06/17 Oil 1,000 mg Capsule] Pectasol C 3 cap PO BID 09/06/17 Phytonadione [Vitamin K] 500 mcg PO DAILY 09/06/17 Saw/Vit E/Sod Cassy/Lyc/Beta/Pyg 1 each PO DAILY 09/06/17 [Prostate Health Caplet] Turmeric Root Extract [Turmeric] 750 mg PO DAILY 09/06/17 Vitamin A 5,000 unit PO DAILY 09/06/17 Ciprofloxacin [Cipro] 500 mg PO BID #20 tab 09/12/17 Docusate Sodium [Colace] 100 mg PO BID #20 cap 09/12/17 Hydrocodone/Acetaminophen [[place] 1 ea PO Q4H PRN PRN 7 Days #14 tab 09/12/17 5-325 Tablet] Surgical History: - - History of lumbar stabilization Psychiatric History: No pertinent psych hx Lives: Spouse/ Significant Other Smoking Status: Never smoker Tobacco Use: Non-smoker Drugs: None - *Family History Paternal History Items: No pertinent history Review of Systems Comment: See HPI, otherwise negative ?10 systems Patient Problems: Active and Suspected Problems Prostate cancer (Acute) Objective: All imaging was personally reviewed. EKG showed sinus bradycardia without Q waves. - Physical Exam General: Alert, Oriented x3, Cooperative, No apparent distress, Well developed, Well nourished, - - Speaking in full sentences. HEENT: Atraumatic, PERRLA, EOMI, Normocephalic, - - No scleral icterus or injection noted. Oral: Moist Mucosa, No Gingival or Mucosal Lesions/ Ulcerations Neck: Supple, No JVD, No Nodes, Trachea Midline Lungs: Clear to auscultation, Normal air movement, No rhonchi, No wheeze, No rales, - - Symmetric expansion. No dullness to percussion. Cardiovascular: Regular rate, Regular Rhythm, Normal S1, Normal S2, Murmur - Grade 2 out of 6 systolic ejection murmur at the left lower sternal border, No rub noted, No Gallop Abdomen: Soft, Hypoactive Bowel Sounds, Distended - Slightly, Tender - Around incision sites, without rebound. Extremities: No clubbing, No cyanosis, No edema, Capillary Refill Less than 3 Seconds Skin: No rashes, No breakdown, Incision - All incisions are clean, dry and intact. No saturated dressings or induration appreciated. Musculoskeletal: No Tenderness to Palpation of Joints or Extremities, No Muscle Wasting Lymphatic: No Cervical, Supraclavicular, or Inguinal Adenopathy Neurological: Cranial nerves II-XII grossly intact, Neuro grossly intact, Motor Exam 5/5 strength throughout, Sensory exam intact to light touch and pain Psych/Mental Status: Alert and oriented to time, place, person, mood and affect Vital Signs Temp Pulse Resp BP Pulse Ox 36.9 C 86 18 116/67 94 09/13/17 06:00 09/13/17 07:38 09/13/17 07:00 09/13/17 07:00 09/13/17 07:00 Oxygen Flow Rate (L/min) 2 Oxygen Delivery Method Room Air Weight: 84 kg Body Mass Index (BMI) 26.4 Intake and Output for Last 24 Hours 09/11/17 09/12/17 09/13/17 23:59 23:59 23:59 Intake Total 25690 / 92378 500 / 500 Output Total 2675 / 2675 200 / 200 Balance 9091 / 9091 300 / 300 Laboratory Tests Past 24 Hrs 09/12/17 09/12/17 09/12/17 15:00 16:09 16:09 WBC 6.1 8.7 RBC 2.21 L 1.92 L Hgb 7.1 L 6.3 L Hct 21.2 L 18.4 L MCV 95.9 H 95.8 H MCH 32.1 H 32.8 H MCHC 33.5 34.2 RDW 12.7 12.9 RDW Differential 44.3 H 44.9 H Plt Count 118 L 133 L MPV 8.5 8.5 Immature Gran % (Auto) 0.000 0.100 Neut % (Auto) 92.7 H 90.9 H Lymph % (Auto) 3.9 L 4.4 L [place] % (Auto) 3.4 4.6 Eos % (Auto) 0.0 0.0 Baso % (Auto) 0.0 0.0 Absolute Neuts (auto) 5.7 7.9 H Absolute Lymphs (auto) 0.24 L 0.38 L Total Counted Not Reportable Not Reportable Differential Comment SCANNED PT INR APTT Sodium Potassium Chloride Carbon Dioxide Anion Gap BUN Creatinine Estim Creat Clear Calc Est GFR (MDRD) Af Amer Est GFR (MDRD) Non-Af BUN/Creatinine Ratio Glucose Calcium Total Bilirubin AST ALT Alkaline Phosphatase Total Protein Albumin Globulin Albumin/Globulin Ratio MRSA (PCR) Blood Type O POSITIVE Antibody Screen NEGATIVE Crossmatch See Detail 09/12/17 09/12/17 09/12/17 16:09 16:09 17:20 WBC RBC Hgb Hct MCV MCH MCHC RDW RDW Differential Plt Count MPV Immature Gran % (Auto) Neut % (Auto) Lymph % (Auto) [place] % (Auto) Eos % (Auto) Baso % (Auto) Absolute Neuts (auto) Absolute Lymphs (auto) Total Counted Differential Comment PT 19.2 H INR 1.6 APTT 30.5 Sodium 145 Potassium 4.0 Chloride 113 H Carbon Dioxide 25.0 Anion Gap 7 BUN 15 Creatinine 0.90 Estim Creat Clear Calc 73.23 Est GFR (MDRD) Af Amer 106 Est GFR (MDRD) Non-Af 88 BUN/Creatinine Ratio 16.7 Glucose 207 H Calcium 7.0 L Total Bilirubin AST ALT Alkaline Phosphatase Total Protein Albumin Globulin Albumin/Globulin Ratio MRSA (PCR) Blood Type Antibody Screen Crossmatch See Detail 09/12/17 09/12/17 09/12/17 17:20 17:20 18:15 WBC 10.3 RBC 2.47 L Hgb 7.5 L Hct 23.1 L MCV 93.5 MCH 30.4 MCHC 32.5 RDW 15.2 H RDW Differential 49.3 H Plt Count 96 L MPV 10.6 Immature Gran % (Auto) 0.200 Neut % (Auto) 90.4 H Lymph % (Auto) 3.7 L [place] % (Auto) 5.6 Eos % (Auto) 0.1 Baso % (Auto) 0.0 Absolute Neuts (auto) 9.3 H Absolute Lymphs (auto) 0.38 L Total Counted Not Reportable Differential Comment SCANNED PT INR APTT Sodium 145 Potassium 4.4 Chloride 112 H Carbon Dioxide 25.0 Anion Gap 8 BUN 15 Creatinine 0.88 Estim Creat Clear Calc 74.89 Est GFR (MDRD) Af Amer 108 Est GFR (MDRD) Non-Af 89 BUN/Creatinine Ratio 16.9 Glucose 190 H Calcium 7.0 L Total Bilirubin 0.60 AST 11 L ALT < 6 L Alkaline Phosphatase 25 L Total Protein 2.6 L Albumin 1.5 L Globulin 1.1 L Albumin/Globulin Ratio 1.4 MRSA (PCR) Negative Blood Type Antibody Screen Crossmatch 09/12/17 09/12/17 09/13/17 22:55 22:55 04:25 WBC 14.1 H 12.5 H RBC 3.61 L 3.34 L Hgb 10.9 L 10.0 L Hct 32.3 L 29.2 L MCV 89.5 87.4 MCH 30.2 29.9 MCHC 33.7 34.2 RDW 15.6 H 16.0 H RDW Differential 51.0 H 51.5 H Plt Count 141 L 144 L MPV 9.5 9.2 Immature Gran % (Auto) 0.200 Neut % (Auto) 89.2 H Lymph % (Auto) 6.8 L [place] % (Auto) 3.8 Eos % (Auto) 0.0 Baso % (Auto) 0.0 Absolute Neuts (auto) 12.6 H Absolute Lymphs (auto) 0.96 Total Counted Not Reportable Differential Comment PT INR APTT Sodium 145 Potassium 4.7 Chloride 109 H Carbon Dioxide 22.0 Anion Gap 14 BUN 16 Creatinine 1.17 Estim Creat Clear Calc 56.33 Est GFR (MDRD) Af Amer 78 Est GFR (MDRD) Non-Af 65 BUN/Creatinine Ratio 13.7 Glucose 223 H Calcium 7.2 L Total Bilirubin AST ALT Alkaline Phosphatase Total Protein Albumin Globulin Albumin/Globulin Ratio MRSA (PCR) Blood Type Antibody Screen Crossmatch 09/13/17 04:25 WBC RBC Hgb Hct MCV MCH MCHC RDW RDW Differential Plt Count MPV Immature Gran % (Auto) Neut % (Auto) Lymph % (Auto) [place] % (Auto) Eos % (Auto) Baso % (Auto) Absolute Neuts (auto) Absolute Lymphs (auto) Total Counted Differential Comment PT INR APTT Sodium 144 Potassium 4.8 Chloride 110 H Carbon Dioxide 24.0 Anion Gap 10 BUN 20 H Creatinine 1.32 H Estim Creat Clear Calc 49.93 Est GFR (MDRD) Af Amer 68 Est GFR (MDRD) Non-Af 56 L BUN/Creatinine Ratio 15.2 Glucose 201 H Calcium 7.4 L Total Bilirubin AST ALT Alkaline Phosphatase Total Protein Albumin Globulin Albumin/Globulin Ratio MRSA (PCR) Blood Type Antibody Screen Crossmatch Assessment/Plan Active and Suspected Problems Prostate cancer (Acute) RECOMMENDATIONS: 1. Obtain H&H if any change in abdominal exam 2. Increase activity as tolerated 3. Continue baseline Sinemet therapy 4. Gentle hydration with BMP tomorrow 5. Okay to leave the intensive care unit from my perspective IMPRESSIONS: 1. Hemorrhagic shock postop day #1 of radical prostatectomy Patient received 4 units of packed red blood cells yesterday. Blood pressure is much improved compared to previous. Patient is not reporting any significant pain on abdominal exam. We will continue to monitor clinically. Repeat blood counts tomorrow. If patient were to have a change in abdominal exam, immediate H&H should be obtained. Patient may require platelet and FFP if additional blood products are required. Pain is controlled with current regimen 2. Acute kidney injury secondary to #1 Patient with a slight increase in creatinine compared to preoperative levels. Patient did have significant volume shifts yesterday secondary to surgery. Avoid nephrotoxic medications. No indication for renal replacement therapy at this time. Will continue to monitor with daily BMPs. 3. Parkinson's disease/advanced age/history of lumbar fusion Complicates care, management, recovery and prognosis. Likely okay to continue with baseline medications. Patient does take Colace at baseline, so we will need to watch for possible complications of opiates (constipation) closely. Code Visit Inpatient E&M: 20476 Init Hosp L2
[2017-09-13] MEDS: HYDROcodone Bitartrate/Apap 5/325 Tablet PO (08:21)
[2017-09-13] MEDS: Ciprofloxacin 400 MG/200 ML BAG 200 MG IV ×2 (09:27→21:17)
[2017-09-13] MEDS: Docusate Sodium 100 MG Capsule 200 MG PO ×2 (09:27→21:10)
--- NOTE | 2017-09-13 16:46 | NURSING ---
Called report to DARRYL Gates on Med/Surg. Pt to floor via w/c with all belongings.
--- NOTE | 2017-09-13 16:46 | NURSING ---
reviewed D mayito RN charting and agree with assessment findings
[2017-09-13] MEDS: BENZOCAINE/MENTHOL 1 LOZENGE MUCOUS MEM ×2 (18:09→21:10)
[2017-09-14 02:35] VITALS: BP 144/64; PULSE 82; RESP 22; TEMP 36.6; O2SAT 93
[2017-09-14 06:04] LABS: Hematocrit 22.3 % (40-54); Hemoglobin 7.7 g/dl (13.0-16.5); Mean Corp Hgb Conc 34.5 g/gl (32-36); Mean Corpuscular Hgb 31.3 pg (27.0-32.0); Mean Corpuscular Volume 90.7 fL (80-94); Mean Platelet Vol. 9.8 fl (6.2-12.0); Platelet Count 141 K/mm3 (150-450); RBC Distribution Width CV 15.7 % (11.6-14.6); RBC Distribution Width SD 50.1 fl (35.1-43.9); Red Blood Count 2.46 M/mm3 (4.6-6.2); White Blood Count 9.2 K/mm3 (4.4-11.0)
[2017-09-14 06:06] LABS: Scan Indicated on CBC? Y/N NO
[2017-09-14] MEDS: Carbidopa/Levodopa 25/100 Tablet PO ×3 (06:15→16:03)
[2017-09-14 06:26] LABS: Anion Gap 5 (5-15); BUN 14 mg/dL (7-18); BUN/Creat Ratio 17.3 RATIO (10-20); Calcium,Total 8.1 mg/dL (8.5-10.1); Chloride 108 mmol/L (98-107); Creatinine, Serum 0.81 mg/dL (0.70-1.30); EST Glomerular Filtration Rate 99 mL/min (>60); Est Glom Filt Rate - Afr Amer 119 mL/min (>60); Estimated Creatinine Clearance 81.36 ml/min; Glucose 142 mg/dL (74-106); Potassium 4.4 mmol/L (3.5-5.1); Sodium Level 142 mmol/L (136-145)
[2017-09-14 07:13] VITALS: O2SAT 94
--- NOTE | 2017-09-14 07:42 | PCM.PN.INT ---
Subjective: Patient transferred out of the intensive care unit yesterday. Patient reports some insomnia overnight, which he attributes to caffeine intake. Patient also reports some mild increase in abdominal pain that he associates with rolling around in the bed. Patient has not passed any gas per his report. Nursing was concerned about the development of right flank ecchymosis, but no interventions were required. Patient does report mild sore throat, which was treated with Cepacol lozenges. General: Alert, Oriented x3, Cooperative, No apparent distress, Well developed, Well nourished, - - Speaking in full sentences. HEENT: Atraumatic, PERRLA, EOMI, Normocephalic, - - No scleral icterus or injection noted. Oral: Moist Mucosa, No Gingival or Mucosal Lesions/ Ulcerations Neck: Supple, No JVD, No Nodes, Trachea Midline Lungs: Clear to auscultation, Normal air movement, No rhonchi, No wheeze, No rales Cardiovascular: Regular rate, Regular Rhythm, Normal S1, Normal S2, Murmur, No rub noted, No Gallop Abdomen: Soft, Hypoactive Bowel Sounds, Distended - Slightly, Tender - Only on palpation around incisions. No rebound tenderness or guarding appreciated. Extremities: No clubbing, No cyanosis, No edema, Capillary Refill Less than 3 Seconds Skin: - - Right flank ecchymosis noted. No pain on palpation. Musculoskeletal: No Tenderness to Palpation of Joints or Extremities, No Muscle Wasting Lymphatic: No Cervical, Supraclavicular, or Inguinal Adenopathy Neurological: Cranial nerves II-XII grossly intact, Neuro grossly intact, Motor Exam 5/5 strength throughout, Sensory exam intact to light touch and pain Psych/Mental Status: Alert and oriented to time, place, person, mood and affect Vital Signs Temp Pulse Resp BP Pulse Ox 36.6 C 82 22 H 144/64 H 94 09/14/17 02:35 09/14/17 02:35 09/14/17 02:35 09/14/17 02:35 09/14/17 07:13 Oxygen Flow Rate (L/min) 2 Oxygen Delivery Method Room Air Weight: 84 kg Body Mass Index (BMI) 26.4 Intake and Output for Last 24 Hours 09/12/17 09/13/17 09/14/17 23:59 23:59 23:59 Intake Total 21302 / 83480 2420 / 2420 500 / 500 Output Total 2675 / 2675 2450 / 2450 1700 / 1700 Balance 9091 / 9091 -30 / -30 -1200 / -1200 Labs (Last 48 Hours) 09/12/17 09/12/17 09/12/17 15:00 16:09 16:09 WBC 6.1 8.7 RBC 2.21 L 1.92 L Hgb 7.1 L 6.3 L Hct 21.2 L 18.4 L MCV 95.9 H 95.8 H MCH 32.1 H 32.8 H MCHC 33.5 34.2 RDW 12.7 12.9 RDW Differential 44.3 H 44.9 H Plt Count 118 L 133 L MPV 8.5 8.5 Immature Gran % (Auto) 0.000 0.100 Neut % (Auto) 92.7 H 90.9 H Lymph % (Auto) 3.9 L 4.4 L [place] % (Auto) 3.4 4.6 Eos % (Auto) 0.0 0.0 Baso % (Auto) 0.0 0.0 Absolute Neuts (auto) 5.7 7.9 H Absolute Lymphs (auto) 0.24 L 0.38 L Total Counted Not Reportable Not Reportable Differential Comment SCANNED PT INR APTT Sodium Potassium Chloride Carbon Dioxide Anion Gap BUN Creatinine Estim Creat Clear Calc Est GFR (MDRD) Af Amer Est GFR (MDRD) Non-Af BUN/Creatinine Ratio Glucose Calcium Total Bilirubin AST ALT Alkaline Phosphatase Total Protein Albumin Globulin Albumin/Globulin Ratio MRSA (PCR) Blood Type O POSITIVE Antibody Screen NEGATIVE Crossmatch See Detail 09/12/17 09/12/17 09/12/17 16:09 16:09 17:20 WBC RBC Hgb Hct MCV MCH MCHC RDW RDW Differential Plt Count MPV Immature Gran % (Auto) Neut % (Auto) Lymph % (Auto) [place] % (Auto) Eos % (Auto) Baso % (Auto) Absolute Neuts (auto) Absolute Lymphs (auto) Total Counted Differential Comment PT 19.2 H INR 1.6 APTT 30.5 Sodium 145 Potassium 4.0 Chloride 113 H Carbon Dioxide 25.0 Anion Gap 7 BUN 15 Creatinine 0.90 Estim Creat Clear Calc 73.23 Est GFR (MDRD) Af Amer 106 Est GFR (MDRD) Non-Af 88 BUN/Creatinine Ratio 16.7 Glucose 207 H Calcium 7.0 L Total Bilirubin AST ALT Alkaline Phosphatase Total Protein Albumin Globulin Albumin/Globulin Ratio MRSA (PCR) Blood Type Antibody Screen Crossmatch See Detail 09/12/17 09/12/17 09/12/17 17:20 17:20 18:15 WBC 10.3 RBC 2.47 L Hgb 7.5 L Hct 23.1 L MCV 93.5 MCH 30.4 MCHC 32.5 RDW 15.2 H RDW Differential 49.3 H Plt Count 96 L MPV 10.6 Immature Gran % (Auto) 0.200 Neut % (Auto) 90.4 H Lymph % (Auto) 3.7 L [place] % (Auto) 5.6 Eos % (Auto) 0.1 Baso % (Auto) 0.0 Absolute Neuts (auto) 9.3 H Absolute Lymphs (auto) 0.38 L Total Counted Not Reportable Differential Comment SCANNED PT INR APTT Sodium 145 Potassium 4.4 Chloride 112 H Carbon Dioxide 25.0 Anion Gap 8 BUN 15 Creatinine 0.88 Estim Creat Clear Calc 74.89 Est GFR (MDRD) Af Amer 108 Est GFR (MDRD) Non-Af 89 BUN/Creatinine Ratio 16.9 Glucose 190 H Calcium 7.0 L Total Bilirubin 0.60 AST 11 L ALT < 6 L Alkaline Phosphatase 25 L Total Protein 2.6 L Albumin 1.5 L Globulin 1.1 L Albumin/Globulin Ratio 1.4 MRSA (PCR) Negative Blood Type Antibody Screen Crossmatch 09/12/17 09/12/17 09/13/17 22:55 22:55 04:25 WBC 14.1 H 12.5 H RBC 3.61 L 3.34 L Hgb 10.9 L 10.0 L Hct 32.3 L 29.2 L MCV 89.5 87.4 MCH 30.2 29.9 MCHC 33.7 34.2 RDW 15.6 H 16.0 H RDW Differential 51.0 H 51.5 H Plt Count 141 L 144 L MPV 9.5 9.2 Immature Gran % (Auto) 0.200 Neut % (Auto) 89.2 H Lymph % (Auto) 6.8 L [place] % (Auto) 3.8 Eos % (Auto) 0.0 Baso % (Auto) 0.0 Absolute Neuts (auto) 12.6 H Absolute Lymphs (auto) 0.96 Total Counted Not Reportable Differential Comment PT INR APTT Sodium 145 Potassium 4.7 Chloride 109 H Carbon Dioxide 22.0 Anion Gap 14 BUN 16 Creatinine 1.17 Estim Creat Clear Calc 56.33 Est GFR (MDRD) Af Amer 78 Est GFR (MDRD) Non-Af 65 BUN/Creatinine Ratio 13.7 Glucose 223 H Calcium 7.2 L Total Bilirubin AST ALT Alkaline Phosphatase Total Protein Albumin Globulin Albumin/Globulin Ratio MRSA (PCR) Blood Type Antibody Screen Crossmatch 09/13/17 09/14/17 09/14/17 04:25 05:35 05:35 WBC 9.2 RBC 2.46 L Hgb 7.7 L Hct 22.3 L MCV 90.7 MCH 31.3 MCHC 34.5 RDW 15.7 H RDW Differential 50.1 H Plt Count 141 L MPV 9.8 Immature Gran % (Auto) Neut % (Auto) Lymph % (Auto) [place] % (Auto) Eos % (Auto) Baso % (Auto) Absolute Neuts (auto) Absolute Lymphs (auto) Total Counted Differential Comment PT INR APTT Sodium 144 142 Potassium 4.8 4.4 Chloride 110 H 108 H Carbon Dioxide 24.0 29.0 Anion Gap 10 5 BUN 20 H 14 Creatinine 1.32 H 0.81 Estim Creat Clear Calc 49.93 81.36 Est GFR (MDRD) Af Amer 68 119 Est GFR (MDRD) Non-Af 56 L 99 BUN/Creatinine Ratio 15.2 17.3 Glucose 201 H 142 H Calcium 7.4 L 8.1 L Total Bilirubin AST ALT Alkaline Phosphatase Total Protein Albumin Globulin Albumin/Globulin Ratio MRSA (PCR) Blood Type Antibody Screen Crossmatch Medical Necessity - Tobacco Use Smoking Status: Never smoker Tobacco Use: Non-smoker Assessment/Plan All Active Problems Prostate cancer (Acute) History of back surgery (Resolved) RECOMMENDATIONS: 1. Obtain CBC at 2 PM 2. Increase activity as tolerated 3. Continue baseline Sinemet therapy 4. Advance diet per surgery IMPRESSIONS: 1. Hemorrhagic shock postop day #2 of radical prostatectomy Patient received 4 units of packed red blood cells yesterday. Blood pressure is much improved compared to previous. Patient is not reporting any significant pain on abdominal exam. We will continue to monitor clinically. We will hold off on any further transfusions at this time. Repeat CBC at 2 PM. Monitor for hemodynamic instability. However, patient's blood pressure is doing well at this time. Urine output has been appropriate. 2. Acute kidney injury secondary to #1 RESOLVED > Patient with a slight increase in creatinine compared to preoperative levels. Patient did have significant volume shifts secondary to surgery. Avoid nephrotoxic medications. No indication for renal replacement therapy at this time. 3. Parkinson's disease/advanced age/history of lumbar fusion Complicates care, management, recovery and prognosis. Likely okay to continue with baseline medications. Patient does take Colace at baseline, so we will need to watch for possible complications of opiates (constipation) closely. Code Visit Inpatient E&M: 31882 Subs Hosp L3
[2017-09-14] MEDS: HYDROcodone Bitartrate/Apap 5/325 Tablet PO ×3 (08:05→23:19)
[2017-09-14 08:32] VITALS: BP 151/84; PULSE 77; RESP 18; TEMP 36.6; O2SAT 93
[2017-09-14] MEDS: Docusate Sodium 100 MG Capsule 200 MG PO ×2 (10:15→21:02)
[2017-09-14] MEDS: Ciprofloxacin 400 MG/200 ML BAG 200 MG IV ×2 (10:15→21:05)
[2017-09-14 13:55] LABS: Absolute Lymphocyte Count 0.78 X10^3/ul (0.83-4.51); Absolute Neutrophil Count 7.2 X10^3/uL (2.0-7.7); Hematocrit 22.3 % (40-54); Hemoglobin 7.6 g/dl (13.0-16.5); Lymphocyte # 0.78 X10^3/ul (4.0); Lymphocyte % 9.1 % (19-41); Mean Corp Hgb Conc 34.1 g/gl (32-36); Mean Corpuscular Hgb 30.3 pg (27.0-32.0); Mean Corpuscular Volume 88.8 fL (80-94); Mean Platelet Vol. 9.5 fl (6.2-12.0); Monocyte# 0.58 X10^3/uL; Monocyte% 6.7 % (0-10); Neutrophil # 7.23 X10^3/uL (2.7-7.7); Neutrophil % 84.1 % (47-70); POSITIVE COUNT NO; POSITIVE DIFFERENTIAL NO; POSITIVE MORPHOLOGY NO; Platelet Count 145 K/mm3 (150-450); RBC Distribution Width CV 15.9 % (11.6-14.6); RBC Distribution Width SD 51.7 fl (35.1-43.9); Red Blood Count 2.51 M/mm3 (4.6-6.2); White Blood Count 8.6 K/mm3 (4.4-11.0)
--- NOTE | 2017-09-14 14:14 | CASEMGMT ---
RN GARFIELD Face to Face with patient for initial transition planning/care coordination assessment. RN CM introduced self and role at [facility]. Patient lying in bed, alert and oriented, family at bedside. Patient willing to participate in assessment and is able to answer all questions appropriately. Care providers, pharmacy, and demographics verified. Patient lives with in a 1 story home. Patient states that he has a cane but does not utilize, independent at home. Patient wishes to discharge home, denies need for home health at this time. Patient states he has no further needs or concerns at this time. CM to follow for discharge planning needs that may arise. Disposition Plan: Patient to discharge home with family support and follow-up plans in place.
[2017-09-14 14:30] VITALS: BP 147/86; PULSE 87; RESP 18; TEMP 37.3; O2SAT 93
[2017-09-14] MEDS: Bisacodyl 10 MG Suppository RECTAL (18:13)
[2017-09-14] MEDS: DiphenhydrAMINE 25 MG Capsule PO (21:00)
[2017-09-14] MEDS: 0.9% NaCl Peripheral Flush Adult/Peds IV (21:05)
[2017-09-14 21:09] VITALS: BP 149/75; PULSE 78; RESP 16; TEMP 36.7; O2SAT 94
[2017-09-15 03:16] VITALS: BP 146/96; PULSE 93; RESP 16; TEMP 36.6; O2SAT 97
[2017-09-15] MEDS: Carbidopa/Levodopa 25/100 Tablet PO ×3 (06:08→15:16)
[2017-09-15 07:11] LABS: Hematocrit 27.2 % (40-54); Hemoglobin 9.1 g/dl (13.0-16.5); Mean Corp Hgb Conc 33.5 g/gl (32-36); Mean Corpuscular Hgb 30.1 pg (27.0-32.0); Mean Corpuscular Volume 90.1 fL (80-94); Mean Platelet Vol. 9.6 fl (6.2-12.0); Platelet Count 187 K/mm3 (150-450); RBC Distribution Width CV 15.6 % (11.6-14.6); RBC Distribution Width SD 50.6 fl (35.1-43.9); Red Blood Count 3.02 M/mm3 (4.6-6.2)
[2017-09-15 07:15] LABS: Scan Indicated on CBC? Y/N NO
--- NOTE | 2017-09-15 07:24 | PN_ITS ---
Subjective: Patient with significant drop in hemoglobin yesterday, but this remained stable in the afternoon. Patient reports subjective improvement in overall condition. No breathing difficulties are reported. Patient is tolerating p.o. Patient does report better sleep overnight. General: Alert, Oriented x3, Cooperative, No apparent distress, - - Speaking in full sentences. HEENT: Atraumatic, PERRLA, EOMI, Normocephalic, - - No scleral icterus or injection noted. Oral: Moist Mucosa, No Gingival or Mucosal Lesions/ Ulcerations Neck: Supple, No JVD, No Nodes, Trachea Midline Lungs: Clear to auscultation, Normal air movement, No rhonchi, No wheeze, No rales, - - Symmetric expansion. No dullness to percussion. Cardiovascular: Regular rate, Regular Rhythm, Normal S1, Normal S2, Murmur, No rub noted, No Gallop Abdomen: Bowel Sounds Present, Soft, Non-Distended, Tender - No rebound or guarding noted Extremities: No clubbing, No cyanosis, Capillary Refill Less than 3 Seconds, Edema Skin: - - No significant change compared to previous Musculoskeletal: No Tenderness to Palpation of Joints or Extremities, No Muscle Wasting Lymphatic: No Cervical, Supraclavicular, or Inguinal Adenopathy Neurological: Cranial nerves II-XII grossly intact, Neuro grossly intact, Motor Exam 5/5 strength throughout Psych/Mental Status: Alert and oriented to time, place, person, mood and affect Vital Signs Temp Pulse Resp BP Pulse Ox 36.6 C 93 16 146/96 H 97 09/15/17 03:16 09/15/17 03:16 09/15/17 03:16 09/15/17 03:16 09/15/17 03:16 Oxygen Flow Rate (L/min) 2 Oxygen Delivery Method Room Air Weight: 84 kg Body Mass Index (BMI) 26.4 Intake and Output for Last 24 Hours 09/13/17 09/14/17 09/15/17 23:59 23:59 23:59 Intake Total 2420 / 2420 1323 / 1323 100 / 100 Output Total 2450 / 2450 2350 / 2350 350 / 350 Balance -30 / -30 -1027 / -1027 -250 / -250 Labs (Last 48 Hours) 09/14/17 09/14/17 09/14/17 05:35 05:35 13:40 WBC 9.2 8.6 RBC 2.46 L 2.51 L Hgb 7.7 L 7.6 L Hct 22.3 L 22.3 L MCV 90.7 88.8 MCH 31.3 30.3 MCHC 34.5 34.1 RDW 15.7 H 15.9 H RDW Differential 50.1 H 51.7 H Plt Count 141 L 145 L MPV 9.8 9.5 Immature Gran % (Auto) 0.100 Neut % (Auto) 84.1 H Lymph % (Auto) 9.1 L [place] % (Auto) 6.7 Eos % (Auto) 0.0 Baso % (Auto) 0.0 Absolute Neuts (auto) 7.2 Absolute Lymphs (auto) 0.78 L Total Counted Not Reportable Sodium 142 Potassium 4.4 Chloride 108 H Carbon Dioxide 29.0 Anion Gap 5 BUN 14 Creatinine 0.81 Estim Creat Clear Calc 81.36 Est GFR (MDRD) Af Amer 119 Est GFR (MDRD) Non-Af 99 BUN/Creatinine Ratio 17.3 Glucose 142 H Calcium 8.1 L /30/18 06:28 WBC 10.0 RBC 3.02 L Hgb 9.1 L Hct 27.2 L MCV 90.1 MCH 30.1 MCHC 33.5 RDW 15.6 H RDW Differential 50.6 H Plt Count 187 MPV 9.6 Immature Gran % (Auto) Neut % (Auto) Lymph % (Auto) [place] % (Auto) Eos % (Auto) Baso % (Auto) Absolute Neuts (auto) Absolute Lymphs (auto) Total Counted Sodium Potassium Chloride Carbon Dioxide Anion Gap BUN Creatinine Estim Creat Clear Calc Est GFR (MDRD) Af Amer Est GFR (MDRD) Non-Af BUN/Creatinine Ratio Glucose Calcium Medical Necessity - Tobacco Use Smoking Status: Never smoker Tobacco Use: Non-smoker Assessment/Plan All Active Problems Prostate cancer (Acute) History of back surgery (Resolved) RECOMMENDATIONS: 1. Will sign off from a critical care perspective. 2. Increase activity as tolerated 3. Continue baseline Sinemet therapy 4. Advance diet per surgery IMPRESSIONS: 1. Hemorrhagic shock postop day #3 of radical prostatectomy Patient received 4 units of packed red blood cells following surgery. Blood pressure is much improved compared to previous. Patient is not reporting any significant pain on abdominal exam. CBC this morning shows improvement compared to previous. Low clinical suspicion for ongoing bleeding. Renal function was back to normal yesterday. Currently hemodynamically stable on room air. Will sign off from a critical care perspective. 2. Acute kidney injury secondary to #1 RESOLVED > Patient with a slight increase in creatinine compared to preoperative levels. Patient did have significant volume shifts secondary to surgery. Avoid nephrotoxic medications. No indication for renal replacement therapy at this time. 3. Parkinson's disease/advanced age/history of lumbar fusion Complicates care, management, recovery and prognosis. Likely okay to continue with baseline medications. Patient does take Colace at baseline, so we will need to watch for possible complications of opiates (constipation) closely. Code Visit Inpatient E&M: 13579 Subs Hosp L2
[2017-09-15 08:00] VITALS: BP 142/85; PULSE 68; RESP 16; TEMP 36.6; O2SAT 92
--- NOTE | 2017-09-15 08:09 | PCM.PROGNOTE ---
Patient Problems: Active and Suspected Problems Prostate cancer (Acute) Subjective: Postoperative day #3 status post robotic prostatectomy, and immediately exploration for postoperative bleeding, hematocrit and hemoglobin are stable actually, blood count is actually up. This is mostly result of fluid shifts. Clinically stable this morning looks well. He did pass some gas abdomen soft and slightly distended mostly from gas. We will give him another Dulcolax suppository we can advance in the regular diet as tolerated. - Physical Exam General: Alert, Oriented x3, Cooperative HEENT: Atraumatic, PERRLA, EOMI, Normocephalic Neck: Supple, No JVD, Negative Carotid Bruits Lungs: Clear to auscultation, Normal air movement Cardiovascular: Regular rate, No murmurs Abdomen: Bowel Sounds Present, Soft, Non Tender Extremities: No edema, Capillary Refill Less than 3 Seconds Skin: No rashes, No breakdown Musculoskeletal: No Tenderness to Palpation of Joints or Extremities Neurological: Cranial nerves II-XII grossly intact Psych/Mental Status: Normal Affect, Appropriate Vital Signs Temp Pulse Resp BP Pulse Ox 98 F 93 16 146/96 H 97 09/15/17 03:16 09/15/17 03:16 09/15/17 03:16 09/15/17 03:16 09/15/17 03:16 Oxygen Flow Rate (L/min) 2 Oxygen Delivery Method Room Air Weight: 84 kg Body Mass Index (BMI) 26.4 Intake and Output for Last 24 Hours 09/13/17 09/14/17 09/15/17 23:59 23:59 23:59 Intake Total 2420 / 2420 1323 / 1323 100 / 100 Output Total 2450 / 2450 2350 / 2350 350 / 350 Balance -30 / -30 -1027 / -1027 -250 / -250 Laboratory Tests Past 24 Hrs 09/14/17 09/15/17 13:40 06:28 WBC 8.6 10.0 RBC 2.51 L 3.02 L Hgb 7.6 L 9.1 L Hct 22.3 L 27.2 L MCV 88.8 90.1 MCH 30.3 30.1 MCHC 34.1 33.5 RDW 15.9 H 15.6 H RDW Differential 51.7 H 50.6 H Plt Count 145 L 187 MPV 9.5 9.6 Immature Gran % (Auto) 0.100 Neut % (Auto) 84.1 H Lymph % (Auto) 9.1 L [place] % (Auto) 6.7 Eos % (Auto) 0.0 Baso % (Auto) 0.0 Absolute Neuts (auto) 7.2 Absolute Lymphs (auto) 0.78 L Total Counted Not Reportable Medical Necessity - Tobacco Use Smoking Status: Never smoker Tobacco Use: Non-smoker Assessment/Plan All Active Problems Prostate cancer (Acute) History of back surgery (Resolved) 77-year-old male status post radical prostatectomy, advance regular diet slowly, ambulation, Dulcolax suppository today await return of full bowel function.
[2017-09-15] MEDS: Ciprofloxacin 400 MG/200 ML BAG 200 MG IV ×2 (10:17→21:20)
[2017-09-15] MEDS: Bisacodyl 10 MG Suppository RECTAL (10:17)
[2017-09-15] MEDS: Docusate Sodium 100 MG Capsule 200 MG PO ×2 (10:18→21:20)
[2017-09-15] MEDS: 0.9% NaCl Peripheral Flush Adult/Peds IV ×2 (10:19→21:21)
[2017-09-15 11:36] VITALS: O2SAT 93
[2017-09-15 14:00] VITALS: BP 183/93; PULSE 86; RESP 16; TEMP 36.6; O2SAT 95
[2017-09-15 17:16] VITALS: BP 159/95; PULSE 88; RESP 16; TEMP 36.6; O2SAT 96
[2017-09-15 20:24] VITALS: BP 147/87; PULSE 93; RESP 18; TEMP 36.8; O2SAT 93
[2017-09-16 02:20] VITALS: BP 131/69; PULSE 83; RESP 18; TEMP 36.6; O2SAT 93
[2017-09-16] MEDS: Carbidopa/Levodopa 25/100 Tablet PO ×3 (06:28→16:15)
[2017-09-16] MEDS: 0.9% NaCl Peripheral Flush Adult/Peds IV ×3 (06:28→22:48)
[2017-09-16] MEDS: Metoclopramide 10 MG/2 ML Vial IV (06:29)
--- NOTE | 2017-09-16 06:37 | PCM.PROGNOTE ---
Patient Problems: Active and Suspected Problems Prostate cancer (Acute) Subjective: did well over night, passed some more gas a little bm still not hungry, michaelle liquids ok abd soft but still distended, + bowel sounds I c/d/i - Physical Exam General: Alert, Oriented x3 HEENT: Atraumatic Neck: Supple Lungs: Normal air movement Cardiovascular: Regular rate, Regular Rhythm Abdomen: Bowel Sounds Present, Soft, Distended Extremities: No edema, Capillary Refill Less than 3 Seconds Skin: No rashes, No breakdown Musculoskeletal: No Tenderness to Palpation of Joints or Extremities Neurological: Cranial nerves II-XII grossly intact Psych/Mental Status: Normal Affect, Appropriate Vital Signs Temp Pulse Resp BP Pulse Ox 97.9 F 83 18 131/69 H 93 09/16/17 02:20 09/16/17 02:20 09/16/17 02:20 09/16/17 02:20 09/16/17 02:20 Oxygen Flow Rate (L/min) 2 Oxygen Delivery Method Room Air Weight: 84 kg Body Mass Index (BMI) 26.4 Intake and Output for Last 24 Hours 09/14/17 09/15/17 09/16/17 23:59 23:59 23:59 Intake Total 1323 / 1323 400 / 400 969 / 969 Output Total 2350 / 2350 750 / 750 150 / 150 Balance -1027 / -1027 -350 / -350 819 / 819 Laboratory Tests Past 24 Hrs 09/15/17 06:28 WBC 10.0 RBC 3.02 L Hgb 9.1 L Hct 27.2 L MCV 90.1 MCH 30.1 MCHC 33.5 RDW 15.6 H RDW Differential 50.6 H Plt Count 187 MPV 9.6 Medical Necessity - Tobacco Use Smoking Status: Never smoker Tobacco Use: Non-smoker Assessment/Plan All Active Problems Prostate cancer (Acute) History of back surgery (Resolved) also with heart burn add protonix and tums prn dulcolax supp reg diet as michaelle ambulate.
[2017-09-16 06:55] VITALS: O2SAT 93
[2017-09-16 08:37] VITALS: BP 147/88; PULSE 99; RESP 18; TEMP 36.4; O2SAT 93
[2017-09-16] MEDS: Bisacodyl 10 MG Suppository RECTAL (08:40)
[2017-09-16] MEDS: Calcium Carbonate 500 MG Tablet PO ×4 (08:52→22:48)
[2017-09-16] MEDS: Docusate Sodium 100 MG Capsule 200 MG PO (10:26)
[2017-09-16] MEDS: Ciprofloxacin 400 MG/200 ML BAG 200 MG IV ×2 (10:26→22:48)
[2017-09-16] MEDS: Pantoprazole Sodium 40 MG Tablet PO (10:30)
[2017-09-16 15:26] VITALS: BP 125/68; PULSE 88; RESP 18; TEMP 36.7; O2SAT 97
[2017-09-16 20:35] VITALS: BP 130/74; PULSE 83; RESP 18; TEMP 36.3; O2SAT 95
[2017-09-17 02:49] VITALS: BP 138/62; PULSE 81; RESP 18; TEMP 36.6; O2SAT 93
[2017-09-17 06:04] LABS: Hematocrit 23.9 % (40-54); Mean Corp Hgb Conc 33.5 g/gl (32-36); Mean Corpuscular Hgb 30.5 pg (27.0-32.0); Mean Corpuscular Volume 91.2 fL (80-94); Mean Platelet Vol. 9.1 fl (6.2-12.0); Platelet Count 214 K/mm3 (150-450); RBC Distribution Width CV 15.7 % (11.6-14.6); Red Blood Count 2.62 M/mm3 (4.6-6.2); White Blood Count 5.5 K/mm3 (4.4-11.0)
[2017-09-17 06:20] LABS: Scan Indicated on CBC? Y/N NO
[2017-09-17 06:29] LABS: Anion Gap 7 (5-15); BUN 22 mg/dL (7-18); BUN/Creat Ratio 24.6 RATIO (10-20); Calcium,Total 8.1 mg/dL (8.5-10.1); Chloride 105 mmol/L (98-107); Creatinine, Serum 0.89 mg/dL (0.70-1.30); EST Glomerular Filtration Rate 88 mL/min (>60); Est Glom Filt Rate - Afr Amer 107 mL/min (>60); Estimated Creatinine Clearance 74.05 ml/min; Glucose 126 mg/dL (74-106); Potassium 3.5 mmol/L (3.5-5.1); Sodium Level 141 mmol/L (136-145)
[2017-09-17] MEDS: Carbidopa/Levodopa 25/100 Tablet PO ×2 (06:44→13:12)
[2017-09-17] MEDS: Calcium Carbonate 500 MG Tablet PO ×2 (06:46→13:12)
--- NOTE | 2017-09-17 07:56 | PCM.DC.URO ---
Discharge Diet: Light diet - advance as tolerated Discharge Activity: May Not Drive, May not drive while taking narcotic pain medications., May Shower Call your doctor if your incision/area has: Continuous Slow Oozing, Sudden Increased Bleeding, Increased Pain/ Swelling, Increased Redness, Foul Smelling Discharge, Swelling at the incision site Call your doctor if you observe: Fever of 101 or Higher, Inability to have a bowel movement, Dizziness, Fainting spells, Chest pain, Uncontrolled pain Suture Line Care: Avoid Pulling/Pushing, Avoid Pinching/Bending Catheter: [place] to leg bag, [place] to large bag Drain: [place] Instructions: Discharge Instructions for Radical Prostatectomy Allergies/Adverse Reactions: Allergies No Known Allergies Allergy (Verified 09/06/17 14:49) Medications to take at Discharge Ascorbic Acid [Vitamin C] 2,000 mg PO DAILY 09/06/17 Carbidopa/Levodopa 25/100 [Sinemet] 2 tablet PO TIDAC 09/06/17 Cholecalciferol (Vitamin D3) [Vitamin D3] 5,000 unit PO DAILY 09/06/17 Co Q10 200 [Co Q-10] 100 mg PO DAILY 09/06/17 L.acidoph,Paracasei, B.lactis [Probiotic] 1 each PO DAILY 09/06/17 Liposomal Glutathione 2 spray PO BID 09/06/17 Magnesium 300 mg PO DAILY 09/06/17 [place]-3 Fatty Acids/Fish Oil [Fish Oil 1,000 mg Capsule] 1 each PO DAILY 09/06/17 Pectasol C 3 cap PO BID 09/06/17 Phytonadione [Vitamin K] 500 mcg PO DAILY 09/06/17 Saw/Vit E/Sod Cassy/Lyc/Beta/Pyg [Prostate Health Caplet] 1 each PO DAILY 09/06/17 Turmeric Root Extract [Turmeric] 750 mg PO DAILY 09/06/17 Vitamin A 5,000 unit PO DAILY 09/06/17 Ciprofloxacin [Cipro] 500 mg PO BID #20 tab 09/12/17 Docusate Sodium [Colace] 100 mg PO BID #20 cap 09/12/17 Hydrocodone/Acetaminophen [[place] 5-325 Tablet] 1 ea PO Q4H PRN PRN 7 Days #14 tab 09/12/17 Ciprofloxacin [Cipro] 250 mg PO DAILY #14 tab 09/17/17 The following prescriptions were given: Hydrocodone/Acetaminophen [[place] 5-325 Tablet] 1 ea PO Q4H PRN PRN 7 Days #14 tab PRN Reason: Pain Ciprofloxacin [Cipro] 250 mg PO DAILY #14 tab Ciprofloxacin [Cipro] 500 mg PO BID #20 tab Docusate Sodium [Colace] 100 mg PO BID #20 cap Primary Care Physician: Miranda Jacobs NP-C [Primary Care Provider] - Please Follow Up With: Philip Pennington MD When: THIS SUNDAY FOR STAPLE REMOVAL AND CHECK UP.
[2017-09-17 08:49] VITALS: BP 135/76; PULSE 99; RESP 18; TEMP 36.7; O2SAT 96
[2017-09-17] MEDS: 0.9% NaCl Peripheral Flush Adult/Peds IV (09:14)
[2017-09-17] MEDS: Ciprofloxacin 400 MG/200 ML BAG 200 MG IV (09:14)
[2017-09-17] MEDS: Pantoprazole Sodium 40 MG Tablet PO (09:14)
--- NOTE | 2017-09-28 16:57 | PCM.DC.SUM ---
Discharge Date and Diagnosis Date of Admission: 09/12/17 Date of Discharge: 09/17/17 - Secondary Discharge Diagnosis Chronic Problems Parkinsons disease (Chronic) Hospital Course and Treatment Operations: - - robotic rad. prostatectomy post op exploration for bleeding. Procedures: None Summary of Care Provided: The patient is a 77 year old male had robotic prostatectomy postop in pacu unstable and taken back to surgery. open suture of bleeding from dorsal vein then in ICU for 2 days, stabalized, had 4 units of blood, after that stable and sent home in good condition with follow up with urology and reardon cath. Discharge Diet: Light diet - advance as tolerated Discharge Activity: May Not Drive, May not drive while taking narcotic pain medications., May Shower Call your doctor if your incision/area has: Continuous Slow Oozing, Sudden Increased Bleeding, Increased Pain/ Swelling, Increased Redness, Foul Smelling Discharge, Swelling at the incision site Call your doctor if you observe: Fever of 101 or Higher, Inability to have a bowel movement, Dizziness, Fainting spells, Chest pain, Uncontrolled pain Suture Line Care: Avoid Pulling/Pushing, Avoid Pinching/Bending Catheter: [place] to leg bag, [place] to large bag Drain: [place] Home Medications: Medications to take at Discharge Ascorbic Acid [Vitamin C] 2,000 mg PO DAILY 09/06/17 Carbidopa/Levodopa 25/100 [Sinemet] 2 tablet PO TIDAC 09/06/17 Cholecalciferol (Vitamin D3) [Vitamin D3] 5,000 unit PO DAILY 09/06/17 Co Q10 200 [Co Q-10] 100 mg PO DAILY 09/06/17 L.acidoph,Paracasei, B.lactis [Probiotic] 1 each PO DAILY 09/06/17 Liposomal Glutathione 2 spray PO BID 09/06/17 Magnesium 300 mg PO DAILY 09/06/17 [place]-3 Fatty Acids/Fish Oil [Fish Oil 1,000 mg Capsule] 1 each PO DAILY 09/06/17 Pectasol C 3 cap PO BID 09/06/17 Phytonadione [Vitamin K] 500 mcg PO DAILY 09/06/17 Saw/Vit E/Sod Cassy/Lyc/Beta/Pyg [Prostate Health Caplet] 1 each PO DAILY 09/06/17 Turmeric Root Extract [Turmeric] 750 mg PO DAILY 06/21/18 Vitamin A 5,000 unit PO DAILY 09/06/17 Ciprofloxacin [Cipro] 500 mg PO BID #20 tab 09/12/17 Docusate Sodium [Colace] 100 mg PO BID #20 cap 09/12/17 Hydrocodone/Acetaminophen [[place] 5-325 Tablet] 1 ea PO Q4H PRN PRN 7 Days #14 tab 09/12/17 Ciprofloxacin [Cipro] 250 mg PO DAILY #14 tab 09/17/17 Following Prescrptions Were Given to Patient: Hydrocodone/Acetaminophen [[place] 5-325 Tablet] 1 ea PO Q4H PRN PRN 7 Days #14 tab PRN Reason: Pain Ciprofloxacin [Cipro] 250 mg PO DAILY #14 tab Ciprofloxacin [Cipro] 500 mg PO BID #20 tab Docusate Sodium [Colace] 100 mg PO BID #20 cap Primary Care Physician: Miranda Jacobs NP-C [Primary Care Provider] - Please Follow Up With: Philip Pennington MD When: THIS SUNDAY FOR STAPLE REMOVAL AND CHECK UP. Patient Instructions: Discharge Instructions for Radical Prostatectomy Medical Necessity - Tobacco Use Smoking Status: Never smoker Tobacco Use: Non-smoker Meaningful Use Info Meaningful Use Diagnoses (Choose all that apply): None applicable
== END 2017-09-17 14:00 | disposition home or self-care (01) | DRG 707 ==
LOC: MS3 15:53 → ICU 09-13 06:18 → MS3 09-17 11:02
PROVIDERS: Anesthesiology; Internal Medicine Critical Care Medicine; Admitting Provider Urology; Family Provider Nurse Practitioner Family; PCP Nurse Practitioner Family; Visit Provider Urology
PROC: 0VT04ZZ Resection of Prostate, Percutaneous Endoscopic Approach (ICD-10-PCS; CPT 55866; principal; 2017-09-12 07:25)
DX: C61 Malignant neoplasm of prostate (principal); T81.19XA Other postprocedural shock, initial encounter; I97.620 Postprocedural hemorrhage of a circulatory system organ or structure following other procedure; N17.9 Acute kidney failure, unspecified; Z53.31 Laparoscopic surgical procedure converted to open procedure; Y83.8 Other surgical procedures as the cause of abnormal reaction of the patient, or of later complication, without mention of misadventure at the time of the procedure; Z98.1 Arthrodesis status; G20 Parkinson's disease
CPT/HCPCS: 36415; 80048; 80053; 85025; 85027; 85610; 85730; 86850; 86900; 86920; 87641; 88307; 88309; 93005; 97802; J7040; J7120; P9016; A4216; J0744; J2405

== ENCOUNTER → 2017-11-05 07:58 | Outpatient (CLI) | payer MEDICARE, OTHER, SELFPAY ==
[2017-11-05 09:17] LABS: PSA,Total- Diagnostic < 0.01 ng/mL (0.0-4.0)
== END ==
PROVIDERS: Family Provider Nurse Practitioner Family; PCP Nurse Practitioner Family; Visit Provider Urology
DX: C61 Malignant neoplasm of prostate (principal)
CPT/HCPCS: 36415; 84153

== ENCOUNTER → 2018-02-26 07:51 | Outpatient (CLI) | payer MEDICARE, OTHER, SELFPAY ==
[2017-09-12 19:16] VITALS: BMI 26.4
[2018-02-26 08:51] LABS: PSA,Total- Diagnostic < 0.01 ng/mL (0.0-4.0)
--- OUTSIDE RECORDS SUMMARY | 2018-04-14 05:49 | XMS RPT_ITS ---
:1940 Author Organization OHIP Care Team Providers Name Role Phone Philip Pennington Attending Unavailable Philip Pennington Referring Unavailable Primay Care Physicia, No Primary Care Unavailable Philip Pennington Attending Unavailable Philip Pennington Referring Unavailable Arlene Miranda Primary Care Unavailable Narciso Fernandez Attending Unavailable Samir Ramsay Attending Unavailable Royal Cobb Referring Unavailable Gold Lindsay Attending Unavailable Philip Pennington Referring Unavailable Philip Pennington Attending Unavailable Aditi, Jasmeet Referring Unavailable [place], Miranda Primary Care Unavailable Aditi, Jasmeet Admitting Unavailable Aditi, Philip Christina Attending Unavailable Aditi, Philip Christina Referring Unavailable [place], Miranda Primary Care Unavailable NeftaliGold trotter Consulting Unavailable Aditi, Jasmeet Attending Unavailable Aditi, Philip Christina Referring Unavailable Arlene, Miranda Primary Care Unavailable Aditi, Jasmeet Attending Unavailable Aditi, Jasmeet Referring Unavailable Arlene, Miranda Primary Care Unavailable Aditi, Jasmeet Attending Unavailable Arlene, Miranda Primary Care Unavailable PROBLEMS PROBLEMS DATE TYPE CONDITION / CODE ATTENDING STATUS SOURCE 02/26/2018 Unknown R97.20 - Elevated AditiPhilip mann Active [place] prostate specific [facility] antigen [PSA] / Hospital R97.20(ICD-10) Repository 09/25/2017 Unknown T81.19XA - Other Neftali, Gold Active [place] post[facility]cedural [facility] shock, initial Hospital encounter / Repository T81.19XA(ICD-10) 09/25/2017 Unknown I97.620 - Neftali, Gold Active [place] Postprocedural [facility] hemorrhage of a Hospital circulatory system Repository organ or structure following other procedure / I97.620(ICD-10) 09/25/2017 Unknown N17.9 - Acute kidney Neftali, Gold Active [place] failure, unspecified Community / N17.9(ICD-10) Hospital Repository 09/25/2017 Unknown G92 - Toxic Neftali, Gold Active [place] encephalopathy / Community G92(ICD-10) Hospital Repository 09/17/2017 Unknown C61 - Malignant AditiPhilip mann Active [place] neoplasm of prostate [facility] / C61(ICD-10) Hospital Repository 10/03/2017 Unknown R00.1 - Bradycardia, Ramsay, Samir Active [place] unspecified / Community R00.1(ICD-10) Hospital Repository PROCEDURES PROCEDURES No Procedure Records FoundRESULTS RESULTS PSA,TOTAL- DIAGNOSTIC Collected: 02/26/2018 Status: F Source: [place] 7[facility] TYPE CODE TESTS RESULT OUT OF RANGE REFERENCE UNITS LAB L501.9940 0.0-4.0 ng/mL PSA, Normal DIAGNOSTIC < 0.01 Result Comment: This test was performed using the TPSA assay method for the [employer] system. Values obtained with different assay methods cannot be used interchangably. When changing PSA assays in the course of monitoring a patient, additional sequential testing should be carried out to confirm baseline values. Performed By: #### L501.9940 #### [facility] [address] [place], [address] PSA,TOTAL- DIAGNOSTIC Collected: 11/05/2017 Status: F Source: [place] 8:04 AM [facility] REPOSITORY TYPE CODE TESTS RESULT OUT OF RANGE REFERENCE UNITS LAB L501.9940 0.0-4.0 ng/mL PSA, Normal DIAGNOSTIC < 0.01 Result Comment: This test was performed using the TPSA assay method for the [employer] chemistry system. Values obtained with different assay methods cannot be used interchangably. When changing PSA assays in the course of monitoring a patient, additional sequential testing should be carried out to confirm baseline values. Performed By: #### L501.9940 #### [facility] [address], [address] DISCHARGE SUMMARY Observed: 09/28/2017 Status: F Source: [place] 4:59 PM [facility] REPOSITORY [facility] Medical Records Department [address] [place] [address] Discharge Summary 09/28/17 1657 MR#: [id number] Acct: [id number] Name: [place] GU Rep #: [id number] : 1940 77 From: Philip Pennington MD PCP: AKIN Cox Status: DIS IN Y [place] [facility] [place] Discharge Date and Diagnosis Date of Admission: 09/12/17 Date of Discharge: 09/17/17 - Secondary Discharge Diagnosis Chronic Problems Parkinsons disease (Chronic) Hospital Course and Treatment Operations: - - robotic rad. prostatectomy post op exploration for bleeding. Procedures: None Summary of Care Provided: The patient is a 77 year old male had robotic prostatectomy postop in pacu unstable and taken back to surgery. open suture of bleeding from dorsal vein then in ICU for 2 days, stabalized, had 4 units of blood, after that stable and sent home in good condition with follow up with urology and reardon cath. Discharge Diet: Light diet - advance as tolerated Discharge Activity: May Not Drive, May not drive while taking narcotic pain medications., May Shower Call your doctor if your incision/area has: Continuous Slow Oozing, Sudden Increased Bleeding, Increased Pain/ Swelling, Increased Redness, Foul Smelling Discharge, Swelling at the incision site Call your doctor if you observe: Fever of 101 or Higher, Inability to have a bowel movement, Dizziness, Fainting spells, Chest pain, Uncontrolled pain Suture Line Care: Avoid Pulling/Pushing, Avoid Pinching/Bending Catheter: Reardon to leg bag, Reardon to large bag Drain: [place] Home Medications: Medications to take at Discharge Ascorbic Acid [Vitamin C] 2,000 mg PO DAILY 09/06/17 Carbidopa/Levodopa 25/100 [Sinemet] 2 tablet PO TIDAC 09/06/17 Cholecalciferol (Vitamin D3) [Vitamin D3] 5,000 unit PO DAILY 09/06/17 Co Q10 200 [Co Q-10] 100 mg PO DAILY 09/06/17 L.acidoph,Paracasei, B.lactis [Probiotic] 1 each PO DAILY 09/06/17 Liposomal Glutathione 2 spray PO BID 09/06/17 Magnesium 300 mg PO DAILY 09/06/17 [place]-3 Fatty Acids/Fish Oil [Fish Oil 1,000 mg Capsule] 1 each PO DAILY 09/06/17 Pectasol C 3 cap PO BID 09/06/17 Phytonadione [Vitamin K] 500 mcg PO DAILY 09/06/17 Saw/Vit E/Sod Cassy/Lyc/Beta/Pyg [Prostate Health Caplet] 1 each PO DAILY 09/06/17 Turmeric Root Extract [Turmeric] 750 mg PO DAILY 09/06/17 Vitamin A 5,000 unit PO DAILY 09/06/17 Ciprofloxacin [Cipro] 500 mg PO BID #20 tab 09/12/17 Docusate Sodium [Colace] 100 mg PO BID #20 cap 09/12/17 Hydrocodone/Acetaminophen [Temple 5-325 Tablet] 1 ea PO Q4H PRN PRN 7 Days #14 tab 09/12/17 Ciprofloxacin [Cipro] 250 mg PO DAILY #14 tab 09/17/17 Following Prescrptions Were Given to Patient: Hydrocodone/Acetaminophen [Temple 5-325 Tablet] 1 ea PO Q4H PRN PRN 7 Days #14 tab PRN Reason: Pain Ciprofloxacin [Cipro] 250 mg PO DAILY #14 tab Ciprofloxacin [Cipro] 500 mg PO BID #20 tab Docusate Sodium [Colace] 100 mg PO BID #20 cap Primary Care Physician: Miranda Jacobs NP-C [Primary Care Provider] - Please Follow Up With: Philip Pennington MD When: THIS SUNDAY FOR STAPLE REMOVAL AND CHECK UP. Patient Instructions: Discharge Instructions for Radical Prostatectomy Medical Necessity - Tobacco Use Smoking Status: Never smoker Tobacco Use: Non-smoker Meaningful Use Info Meaningful Use Diagnoses (Choose all that apply): None applicable 09/28/17 1659 <Electronically signed by Philip Pennington MD> Date Philip Pennington MD Cosigner Signature (if applicable): Date CC: AKIN Jacobs; Philip Pennington MD Signed DISCHARGE INSTRUCTION Observed: 09/17/2017 Status: F Source: [place] 7:58 AM [facility] REPOSITORY [facility] Medical Records Department [address] [place] [address] Instructions for Home/Discharge Instructions 09/17/17 0756 MR#: [id number] Acct: [id number] Name: [place] GU Rep #: [id number] : 1940 77 From: Philip Pennington MD PCP: AKIN Cox Status: ADM IN ADDENDUM by Philip Pennington MD on 09/17/17 at 0758 USE TUMS OTC AND PEPCID OTC FOR HEART BURN FOR PAIN JUST USE TYLENOL AND ADVIL. Date Philip Pennington MD cc: AKIN Jean Chalk[place]ik; Gold Lindsay MD * Signed Discharge Diet: Light diet - advance as tolerated Discharge Activity: May Not Drive, May not drive while taking narcotic pain medications., May Shower Call your doctor if your incision/area has: Continuous Slow Oozing, Sudden Increased Bleeding, Increased Pain/ Swelling, Increased Redness, Foul Smelling Discharge, Swelling at the incision site Call your doctor if you observe: Fever of 101 or Higher, Inability to have a bowel movement, Dizziness, Fainting spells, Chest pain, Uncontrolled pain Suture Line Care: Avoid Pulling/Pushing, Avoid Pinching/Bending Catheter: Re[place] to leg bag, [place] to large bag Drain: [place] Instructions: Discharge Instructions for Radical Prostatectomy Allergies/Adverse Reactions: Allergies No Known Allergies Allergy (Verified 09/06/17 14:49) Medications to take at Discharge Ascorbic Acid [Vitamin C] 2,000 mg PO DAILY 09/06/17 Carbidopa/Levodopa 25/100 [Sinemet] 2 tablet PO TIDAC 09/06/17 Cholecalciferol (Vitamin D3) [Vitamin D3] 5,000 unit PO DAILY 09/06/17 Co Q10 200 [Co Q-10] 100 mg PO DAILY 09/06/17 L.acidoph,Paracasei, B.lactis [Probiotic] 1 each PO DAILY 09/06/17 Liposomal Glutathione 2 spray PO BID 09/06/17 Magnesium 300 mg PO DAILY 09/06/17 Denison-3 Fatty Acids/Fish Oil [Fish Oil 1,000 mg Capsule] 1 each PO DAILY 09/06/17 Pectasol C 3 cap PO BID 09/06/17 Phytonadione [Vitamin K] 500 mcg PO DAILY 09/06/17 Saw/Vit E/Sod Cassy/Lyc/Beta/Pyg [Prostate Health Caplet] 1 each PO DAILY 09/06/17 Turmeric Root Extract [Turmeric] 750 mg PO DAILY 09/06/17 Vitamin A 5,000 unit PO DAILY 09/06/17 Ciprofloxacin [Cipro] 500 mg PO BID #20 tab 09/12/17 Docusate Sodium [Colace] 100 mg PO BID #20 cap 09/12/17 Hydrocodone/Acetaminophen [Temple 5-325 Tablet] 1 ea PO Q4H PRN PRN 7 Days #14 tab 09/12/17 Ciprofloxacin [Cipro] 250 mg PO DAILY #14 tab 09/17/17 The following prescriptions were given: Hydrocodone/Acetaminophen [Temple 5-325 Tablet] 1 ea PO Q4H PRN PRN 7 Days #14 tab PRN Reason: Pain Ciprofloxacin [Cipro] 250 mg PO DAILY #14 tab Ciprofloxacin [Cipro] 500 mg PO BID #20 tab Docusate Sodium [Colace] 100 mg PO BID #20 cap Primary Care Physician: Miranda Jacobs, MEDIA RECONCILIATION SPECIALIST-C [Primary Care Provider] - Please Follow Up With: Philip Pennington MD When: THIS SUNDAY FOR STAPLE REMOVAL AND CHECK UP. 09/17/17 0757 <Electronically signed by Philip Pennington MD> Date Philip Pennington MD CC: USED CAR LOT PORTER- Miranda Jacobs; Gold Lindsay MD CBC-COMPLETE BLOOD CNT Collected: 09/17/2017 Status: F Source: [place] NO DIFF 5:30 AM [facility] REPOSITORY TYPE CODE TESTS RESULT OUT OF RANGE REFERENCE UNITS LAB L100.1000 4.4-11.0 K/mm3 Normal WBC 5.5 LAB L100.1200 4.6-6.2 M/mm3 Low RBC 2.62 LAB L100.1300 13.0-16.5 g/dl Low HGB 8.0 LAB L100.1400 40-54 % Low HCT 23.9 LAB L100.1500 80-94 fL Normal MCV 91.2 LAB L100.1600 27.0-32.0 pg Normal MCH 30.5 LAB L100.1700 32-36 g/gl Normal MCHC 33.5 LAB L100.1810 11.6-14.6 % High RDW CV 15.7 LAB L100.1820 35.1-43.9 fl High RDW SD 50.0 LAB L100.1900 150-450 K/mm3 Normal PLT 214 LAB L100.2000 6.2-12.0 fl Normal MPV 9.1 Performed By: #### L100.0500 #### [facility] [address] [place], [place], [address] BASIC METABOLIC Collected: 09/17/2017 Status: F Source: [place] PROFILE (BMP) 5:30 AM [facility] REPOSITORY TYPE CODE TESTS RESULT OUT OF RANGE REFERENCE UNITS LAB L501.0100 74-106 mg/dL High GLU 126 Result Comment: Fasting Glucose result greater than or equal to 126 mg/dL suggests DIABETES MELLITUS per A.D.A. criteria. Please note revised GLUCOSE reference range effective 2017. LAB L501.1000 7-18 mg/dL High BUN 22 LAB L501.1100 0.70-1.30 mg/dL Normal CREAT,SERUM 0.89 Result Comment: The validity of the calculated GFR AND GFRAA in patients over 70 years has not been determined. Clinical correlation is essential. LAB L501.1110 >60 mL/min Normal EST GFR 88 Result Comment: Non- GFR Calc LAB L501.1115 >60 mL/min Normal EST GFR - AA 107 Result Comment: GFR Calc LAB L501.1255 ml/min Normal Estimated CRCL 74.05 LAB L501.1300 10-20 RATIO High BUN/CRE 24.6 LAB L501.2200 8.5-10 mg/dL Low .1 CA 8.1 LAB L501.5300 136-14 mmol/L Normal 5 NA 141 LAB L501.5600 3.5-5. mmol/L Normal 1 K 3.5 LAB L501.5900 98-107 mmol/L Normal CL 105 LAB L501.6100 21.0-3 mmol/L Normal 2.0 CO2 29.0 LAB L501.6200 5-15 Normal GAP 7 Performed By: #### L500.2500 #### [facility] [address] [place], [place], [address] CBC-COMPLETE BLOOD CNT Collected: 09/15/2017 Status: F Source: [place] NO DIFF 6:28 AM [facility] REPOSITORY TYPE CODE TESTS RESULT OUT OF RANGE REFERENCE UNITS LAB L100.1000 4.4-11.0 K/mm3 Normal WBC 10.0 LAB L100.1200 4.6-6.2 M/mm3 Low RBC 3.02 LAB L100.1300 13.0-16.5 g/dl Low HGB 9.1 LAB L100.1400 40-54 % Low HCT 27.2 LAB L100.1500 80-94 fL Normal MCV 90.1 LAB L100.1600 27.0-32.0 pg Normal MCH 30.1 LAB L100.1700 32-36 g/gl Normal MCHC 33.5 LAB L100.1810 11.6-14.6 % High RDW CV 15.6 LAB L100.1820 35.1-43.9 fl High RDW SD 50.6 LAB L100.1900 150-450 K/mm3 Normal PLT 187 LAB L100.2000 6.2-12.0 fl Normal MPV 9.6 Performed By: #### L100.0500 #### [facility] [address] [place], [place], [address] CBC W/DIFF, AUTOMATED Collected: 09/14/2017 Status: F Source: [place] 1:40 PM [facility] REPOSITORY TYPE CODE TESTS RESULT OUT OF RANGE REFERENCE UNITS LAB L100.1000 4.4-11.0 K/mm3 Normal WBC 8.6 LAB L100.1200 4.6-6.2 M/mm3 Low RBC 2.51 LAB L100.1300 13.0-16.5 g/dl Low HGB 7.6 LAB L100.1400 40-54 % Low HCT 22.3 LAB L100.1500 80-94 fL Normal MCV 88.8 LAB L100.1600 27.0-32.0 pg Normal MCH 30.3 LAB L100.1700 32-36 g/gl Normal MCHC 34.1 LAB L100.1810 11.6-14.6 % High RDW CV 15.9 LAB L100.1820 35.1-43.9 fl High RDW SD 51.7 LAB L100.1900 150-450 K/mm3 Low PLT 145 LAB L100.2000 6.2-12.0 fl Normal MPV 9.5 LAB L100.2100 47-70 % High NEUT% 84.1 LAB L100.2200 19-41 % Low LY% 9.1 LAB L100.2300 0-10 % Normal MONO% 6.7 LAB L100.2400 0-5 % Normal EO% 0.0 LAB L100.2500 0-1 % Normal BASO% 0.0 LAB L100.2550 0.0-0.9 % Normal IM GRAN % 0.100 Result Comment: IG% - Immature Granulocytes (promyelocytes, myelocytes and metamyelocytes) > 1% indicates that a LEFT SHIFT is Present. LAB L100.2620 2.0-7.7 X10 3/uL Normal Absolute Neut 7.2 LAB L100.2720 0.83-4.51 X10 3/ul Low Absolute Lymph 0.78 Performed By: #### L100.0100 #### [facility] [address] [place], [address] CONSULTATION Observed: 09/14/2017 Status: F Source: [place] 6:56 AM [facility] REPOSITORY [facility] Medical Records Department [address] [place] [address] Consultation 09/13/17 0749 MR#: [id number] Acct: [id number] Name: [place] GU Rep #: [id number] : 1940 77 From: Gold Lindsay MD PCP: AKIN Cox Status: ADM IN Y [place] [facility] [id number] Problem List (1) Prostate cancer Status: Acute (2) History of back surgery Status: Resolved (3) Parkinsons disease Status: Chronic Reason for Consult Date of Consultation: 09/13/17 Reason for Consultation: Hemorrhagic shock History of Present Illness: The patient is a 77 year old M, with past medical history listed below, who presented to [facility] on 09/12/2017 secondary to an elective prostatectomy secondary to prostate cancer. Patient reportedly tolerated initial surgery well and was sent to the PACU at approximately noon. During patient's time in the PACU, patient was noted to be hypotensive. A repeat H AND H showed significant drop in hemoglobin. Patient was taken back for an emergent exploration with laparotomy. A bleeding vessel was found and hemostasis was achieved. Given patient's significant hypotension, patient was transferred to the intensive care unit postoperatively. Patient was able to be extubated prior to being transferred to the intensive care unit. This morning, patient reports good response to therapy. Patient is denying any pain at this time while not moving. Patient does report some discomfort with movement. Patient denies any flatus at this time. Nursing reports patient did have some hematuria overnight, but this did respond to flushing. Patient denies any cardiac history in the past. Patient did receive a total of 4 units of packed red blood cells over the last 24 hours, but has been doing well on room air. Review of systems otherwise negative 10 systems. Did discuss personally with urology. Past Medical History Past Medical History (Chronic Problems): Chronic Problems Parkinsons disease (Chronic) Allergies No Known Allergies Allergy (Verified 09/06/17 14:49) Home Medications: Ambulatory Orders Medication Instructions Recorded Surgical History: - - History of lumbar stabilization Psychiatric History: No pertinent psych hx Lives: Spouse/ Significant Other Smoking Status: Never smoker Tobacco Use: Non-smoker Drugs: None - *Family History Paternal History Items: No pertinent history Review of Systems Comment: See HPI, otherwise negative 10 systems Patient Problems: Active and Suspected Problems Prostate cancer (Acute) Objective: All imaging was personally reviewed. EKG showed sinus bradycardia without Q waves. - Physical Exam General: Alert, Oriented x3, Cooperative, No apparent distress, Well developed, Well nourished, - - Speaking in full sentences. HEENT: Atraumatic, PERRLA, EOMI, Normocephalic, - - No scleral icterus or injection noted. Oral: Moist Mucosa, No Gingival or Mucosal Lesions/ Ulcerations Neck: Supple, No JVD, No Nodes, Trachea Midline Lungs: Clear to auscultation, Normal air movement, No rhonchi, No wheeze, No rales, - - Symmetric expansion. No dullness to percussion. Cardiovascular: Regular rate, Regular Rhythm, Normal S1, Normal S2, Murmur - Grade 2 out of 6 systolic ejection murmur at the left lower sternal border, No rub noted, No Gallop Abdomen: Soft, Hypoactive Bowel Sounds, Distended - Slightly, Tender - Around incision sites, without rebound. Extremities: No clubbing, No cyanosis, No edema, Capillary Refill Less than 3 Seconds Skin: No rashes, No breakdown, Incision - All incisions are clean, dry and intact. No saturated dressings or induration appreciated. Musculoskeletal: No Tenderness to Palpation of Joints or Extremities, No Muscle Wasting Lymphatic: No Cervical, Supraclavicular, or Inguinal Adenopathy Neurological: Cranial nerves II-XII grossly intact, Neuro grossly intact, Motor Exam 5/5 strength throughout, Sensory exam intact to light touch and pain Psych/Mental Status: Alert and oriented to time, place, person, mood and affect Vital Signs Temp Pulse Resp BP Pulse Ox 36.9 C 86 18 116/67 94 09/13/17 06:00 09/13/17 07:38 09/13/17 07:00 09/13/17 07:00 09/13/17 07:00 Oxygen Flow Rate (L/min) 2 Oxygen Delivery Method Room Air Weight: 84 kg Body Mass Index (BMI) 26.4 Intake and Output for Last 24 Hours Intake Total 04764 / 54922 500 / 500 Output Total 2675 / 2675 200 / 200 Balance 9091 / 9091 300 / 300 Laboratory Tests Past 24 Hrs WBC 6.1 8.7 RBC 2.21 L 1.92 L Hgb 7.1 L 6.3 L Hct 21.2 L 18.4 L MCV 95.9 H 95.8 H WBC RBC Hgb Hct MCV MCH MCHC RDW RDW Differential Plt Count WBC 10.3 RBC 2.47 L Hgb 7.5 L Hct 23.1 L WBC 14.1 H 12.5 H RBC 3.61 L 3.34 L Hgb 10.9 L 10.0 L Assessment/Plan Active and Suspected Problems Prostate cancer (Acute) RECOMMENDATIONS: 1. Obtain H AND H if any change in abdominal exam 2. Increase activity as tolerated 3. Continue baseline Sinemet therapy 4. Gentle hydration with BMP tomorrow 5. Okay to leave the intensive care unit from my perspective IMPRESSIONS: 1. Hemorrhagic shock postop day #1 of radical prostatectomy Patient received 4 units of packed red blood cells yesterday. Blood pressure is much improved compared to previous. Patient is not reporting any significant pain on abdominal exam. We will continue to monitor clinically. Repeat blood counts tomorrow. If patient were to have a change in abdominal exam, immediate H AND H should be obtained. Patient may require platelet and FFP if additional blood products are required. Pain is controlled with current regimen 2. Acute kidney injury secondary to #1 Patient with a slight increase in creatinine compared to preoperative levels. Patient did have significant volume shifts yesterday secondary to surgery. Avoid nephrotoxic medications. No indication for renal replacement therapy at this time. Will continue to monitor with daily BMPs. 3. Parkinson's disease/advanced age/history of lumbar fusion Complicates care, management, recovery and prognosis. Likely okay to continue with baseline medications. Patient does take Colace at baseline, so we will need to watch for possible complications of opiates (constipation) closely. Code Visit Inpatient E AND M: [id number] Init Hosp L2 09/14/17 0656 <Electronically signed by Gold Lindsay MD> Date Gold Lindsay MD Cosigner Signature (if applicable): Date CC: USED CAR LOT PORTER-BC Miranda Jacobs; Gold Lindsay MD; Philip Pennington MD Signed CBC-COMPLETE BLOOD CNT Collected: 09/14/2017 Status: F Source: [place] NO DIFF 5:35 AM [facility] REPOSITORY TYPE CODE TESTS RESULT OUT OF RANGE REFERENCE UNITS LAB L100.1000 4.4-11.0 K/mm3 Normal WBC 9.2 LAB L100.1200 4.6-6.2 M/mm3 Low RBC 2.46 LAB L100.1300 13.0-16.5 g/dl Low HGB 7.7 LAB L100.1400 40-54 % Low HCT 22.3 LAB L100.1500 80-94 fL Normal MCV 90.7 LAB L100.1600 27.0-32.0 pg Normal MCH 31.3 LAB L100.1700 32-36 g/gl Normal MCHC 34.5 LAB L100.1810 11.6-14.6 % High RDW CV 15.7 LAB L100.1820 35.1-43.9 fl High RDW SD 50.1 LAB L100.1900 150-450 K/mm3 Low PLT 141 LAB L100.2000 6.2-12.0 fl Normal MPV 9.8 Performed By: #### L100.0500 #### [facility] [address] [place], [address] BASIC METABOLIC Collected: 09/14/2017 Status: F Source: [place] PROFILE (BMP) 5:35 AM [facility] REPOSITORY TYPE CODE TESTS RESULT OUT OF RANGE REFERENCE UNITS LAB L501.0100 74-106 mg/dL High GLU 142 Result Comment: Fasting Glucose result greater than or equal to 126 mg/dL suggests DIABETES MELLITUS per A.D.A. criteria. Please note revised GLUCOSE reference range effective 2017. LAB L501.1000 7-18 mg/dL Normal BUN 14 LAB L501.1100 0.70-1.30 mg/dL Normal CREAT,SERUM 0.81 Result Comment: The validity of the calculated GFR AND GFRAA in patients over 70 years has not been determined. Clinical correlation is essential. LAB L501.1110 >60 mL/min Normal EST GFR 99 Result Comment: Non- GFR Calc LAB L501.1115 >60 mL/min Normal EST GFR - AA 119 Result Comment: GFR Calc LAB L501.1255 ml/min Normal Estimated CRCL 81.36 LAB L501.1300 10-20 RATIO Normal BUN/CRE 17.3 LAB L501.2200 8.5-10 mg/dL Low .1 CA 8.1 LAB L501.5300 136-14 mmol/L Normal 5 NA 142 LAB L501.5600 3.5-5. mmol/L Normal 1 K 4.4 LAB L501.5900 98-107 mmol/L High CL 108 LAB L501.6100 21.0-3 mmol/L Normal 2.0 CO2 29.0 LAB L501.6200 5-15 Normal GAP 5 Performed By: #### L500.2500 #### [facility] [address] [place], [place], [address] CBC-COMPLETE BLOOD CNT Collected: 09/13/2017 Status: F Source: [place] NO DIFF 4:25 AM [facility] REPOSITORY TYPE CODE TESTS RESULT OUT OF RANGE REFERENCE UNITS LAB L100.1000 4.4-11.0 K/mm3 High WBC 12.5 LAB L100.1200 4.6-6.2 M/mm3 Low RBC 3.34 LAB L100.1300 13.0-16.5 g/dl Low HGB 10.0 LAB L100.1400 40-54 % Low HCT 29.2 LAB L100.1500 80-94 fL Normal MCV 87.4 LAB L100.1600 27.0-32.0 pg Normal MCH 29.9 LAB L100.1700 32-36 g/gl Normal MCHC 34.2 LAB L100.1810 11.6-14.6 % High RDW CV 16.0 LAB L100.1820 35.1-43.9 fl High RDW SD 51.5 LAB L100.1900 150-450 K/mm3 Low PLT 144 LAB L100.2000 6.2-12.0 fl Normal MPV 9.2 Performed By: #### L100.0500 #### [facility] [address] [place], [address] BASIC METABOLIC Collected: 09/13/2017 Status: F Source: [place] PROFILE (BMP) 4:25 AM [facility] REPOSITORY TYPE CODE TESTS RESULT OUT OF RANGE REFERENCE UNITS LAB L501.0100 74-106 mg/dL High GLU 201 Result Comment: Glucose result greater than or equal to 200 mg/dL suggests DIABETES MELLITUS per A.D.A. criteria. Please note revised GLUCOSE reference range effective 2017. LAB L501.1000 7-18 mg/dL High BUN 20 LAB L501.1100 0.70-1.30 mg/dL High CREAT,SERUM 1.32 Result Comment: The validity of the calculated GFR AND GFRAA in patients over 70 years has not been determined. Clinical correlation is essential. LAB L501.1110 >60 mL/min Low EST GFR 56 Result Comment: Non- GFR Calc LAB L501.1115 >60 mL/min Normal EST GFR - AA 68 Result Comment: GFR Calc LAB L501.1255 ml/min Normal Estimated CRCL 49.93 LAB L501.1300 10-20 RATIO Normal BUN/CRE 15.2 LAB L501.2200 8.5-10 mg/dL Low .1 CA 7.4 LAB L501.5300 136-14 mmol/L Normal 5 NA 144 LAB L501.5600 3.5-5. mmol/L Normal 1 K 4.8 LAB L501.5900 98-107 mmol/L High CL 110 LAB L501.6100 21.0-3 mmol/L Normal 2.0 CO2 24.0 LAB L501.6200 5-15 Normal GAP 10 Performed By: #### L500.2500 #### [facility] [address] [place], [address] BASIC METABOLIC Collected: 09/12/2017 Status: F Source: [place] PROFILE ([facility]) 10:55 PM [facility] REPOSITORY TYPE CODE TESTS RESULT OUT OF RANGE REFERENCE UNITS LAB L501.0100 74-106 mg/dL High GLU 223 Result Comment: Glucose result greater than or equal to 200 mg/dL suggests DIABETES MELLITUS per A.D.A. criteria. Please note revised GLUCOSE reference range effective 2017. LAB L501.1000 7-18 mg/dL Normal BUN 16 LAB L501.1100 0.70-1.30 mg/dL Normal CREAT,SERUM 1.17 Result Comment: The validity of the calculated GFR AND GFRAA in patients over 70 years has not been determined. Clinical correlation is essential. LAB L501.1110 >60 mL/min Normal EST GFR 65 Result Comment: Non- GFR Calc LAB L501.1115 >60 mL/min Normal EST GFR - AA 78 Result Comment: GFR Calc LAB L501.1255 ml/min Normal Estimated CRCL 56.33 LAB L501.1300 10-20 RATIO Normal BUN/CRE 13.7 LAB L501.2200 8.5-10 mg/dL Low .1 CA 7.2 LAB L501.5300 136-14 mmol/L Normal 5 NA 145 LAB L501.5600 3.5-5. mmol/L Normal 1 K 4.7 LAB L501.5900 98-107 mmol/L High CL 109 LAB L501.6100 21.0-3 mmol/L Normal 2.0 CO2 22.0 LAB L501.6200 5-15 Normal GAP 14 Performed By: #### L500.2500 #### [facility] [address] [place], [address] CBC W/DIFF, AUTOMATED Collected: 09/12/2017 Status: F Source: [place] 10:55 PM [facility] REPOSITORY TYPE CODE TESTS RESULT OUT OF RANGE REFERENCE UNITS LAB L100.1000 4.4-11.0 K/mm3 High WBC 14.1 LAB L100.1200 4.6-6.2 M/mm3 Low RBC 3.61 LAB L100.1300 13.0-16.5 g/dl Low HGB 10.9 LAB L100.1400 40-54 % Low HCT 32.3 LAB L100.1500 80-94 fL Normal MCV 89.5 LAB L100.1600 27.0-32.0 pg Normal MCH 30.2 LAB L100.1700 32-36 g/gl Normal MCHC 33.7 LAB L100.1810 11.6-14.6 % High RDW CV 15.6 LAB L100.1820 35.1-43.9 fl High RDW SD 51.0 LAB L100.1900 150-450 K/mm3 Low PLT 141 LAB L100.2000 6.2-12.0 fl Normal MPV 9.5 LAB L100.2100 47-70 % High NEUT% 89.2 LAB L100.2200 19-41 % Low LY% 6.8 LAB L100.2300 0-10 % Normal MONO% 3.8 LAB L100.2400 0-5 % Normal EO% 0.0 LAB L100.2500 0-1 % Normal BASO% 0.0 LAB L100.2550 0.0-0.9 % Normal IM GRAN % 0.200 Result Comment: IG% - Immature Granulocytes (promyelocytes, myelocytes and metamyelocytes) > 1% indicates that a LEFT SHIFT is Present. LAB L100.2620 2.0-7.7 X10 3/uL High Absolute Neut 12.6 LAB L100.2720 0.83-4.51 X10 3/ul Normal Absolute Lymph 0.96 Performed By: #### L100.0100 #### [facility] [address] [place], [address] OPERATIVE REPORT Observed: 09/12/2017 Status: F Source: [place] 6:22 PM [facility] REPOSITORY [facility] Medical Records Department [address] [place] [address] Operative Report 09/12/17 1817 MR#: [id number] Acct: [id number] Name: CONNOR GU Rep #: [id number] : 1940 77 From: Philip Pennington MD PCP: AKIN Cox Status: ADM IN Y Location: ICU ICU01-1 Report of Operation Date of Procedure: 09/12/17 Pre-Operative Diagnosis: Unstable blood pressure in the PACU Post-Operative Diagnosis: Bleeding in the abdomen and dorsal vein bleeding, bleeding from the dorsal vein complex Surgery/Procedure Performed:: Diagnostic laparoscopy and then open exploration of the abdomen and stitching of the dorsal vein complex Description of Surgical Findings:: 77-year-old male who just completed a robotic prostatectomy was taken to the PACU and immediately found to be hypotensive, after surgery the abdomen was dry there was no bleeding noticed intraoperatively. He continued to be hypotensive requiring fluid resuscitation in the PACU a hematocrit was drawn and a CBC was drawn and was found to have a very low blood count and therefore decision was made to take him back for exploration immediately suspicion of bleeding source unknown. He was taken back to the operating room at the smooth induction of general anesthesia was placed supine on the table I then opened up the umbilical incision open up the stitches of the fascia placed a port into the abdomen and the peritoneum insufflated the abdomen with CO2 gas and when I got and he had a significant amount of bright red blood inside the abdomen at this point I made the decision to go ahead and open the patient made a lower midline incision from the umbilicus down to the pubic bone provided good exposure suctioned out over a liter of blood inside the abdomen mostly from the quadrants the upper quadrants and a lot from the right upper quadrant and left upper quadrant eventually suction all that trace in the blood down to the pelvis first without maybe he was epigastric bleeding but this turned out to be clear then as a search deeper into the pelvis we eventually got the pelvis cleared out and we saw a wide open vein that was bleeding from the dorsal vein complex. At this point called in general surgeon to assist with exposure and after attempting to place several stitches then we were able to successfully stitch the dorsal vein complex and stop the bleeding in the meantime he been given 2 units of emergency O- blood and was getting his first crossmatch blood to catch up from the bleeding once the dorsal vein complex was stitched again which I did manually with 2-0 Vicryls then we packed above this with thrombin Gelfoam left pressure on this looked back again and the bleeding is stopped we then inspected the abdomen there is no other source of bleeding we then closed the midline fascia with a running 2 PDS, all sponges needle counts were accounted for the nurses reported having all their needles and sponges before closing the abdomen we then closed the skin with marla patient was extubated taken to the ICU in stable condition for close monitoring and resuscitation from postoperative hemorrhage. Type of Anesthesia:: General Drains: reardon Estimated Blood Loss (mL): 1 liter in - Admit VTE Documentation VTE Present on Admission: No VTE Mechan Device Prophylaxis: SCD's VTE Pharm Prophylaxis ordered?: No Reason prophylaxis not ordered:: Treatment Not Indicated 09/12/171821 <Electronically signed by Philip Pennington MD> Date Philip Pennington MD CC: USED CAR LOT PORTER-ELLEN Jacobs; Philip Pennington MD Signed M R STAPH AUREUS Collected: 09/12/2017 Status: F Source: [place] DNA BY PCR 6:15 PM [facility] REPOSITORY TYPE CODE TESTS RESULT OUT OF RANGE REFERENCE UNITS LAB L8200.1100 Negative Normal MRSA Negative RESULT Performed By: #### L8200.1000 #### [facility] [address] [place] [address], [address] CBC W/DIFF, AUTOMATED Collected: 09/12/2017 Status: F Source: [place] 5:20 PM [facility] REPOSITORY TYPE CODE TESTS RESULT OUT OF RANGE REFERENCE UNITS LAB L100.1000 4.4-11.0 K/mm3 Normal WBC 10.3 LAB L100.1200 4.6-6.2 M/mm3 Low RBC 2.47 LAB L100.1300 13.0-16.5 g/dl Low HGB 7.5 LAB L100.1400 40-54 % Low HCT 23.1 LAB L100.1500 80-94 fL Normal MCV 93.5 LAB L100.1600 27.0-32.0 pg Normal MCH 30.4 LAB L100.1700 32-36 g/gl Normal MCHC 32.5 LAB L100.1810 11.6-14.6 % High RDW CV 15.2 LAB L100.1820 35.1-43.9 fl High RDW SD 49.3 LAB L100.1900 150-450 K/mm3 Low PLT 96 LAB L100.2000 6.2-12.0 fl Normal MPV 10.6 LAB L100.2100 47-70 % High NEUT% 90.4 LAB L100.2200 19-41 % Low LY% 3.7 LAB L100.2300 0-10 % Normal MONO% 5.6 LAB L100.2400 0-5 % Normal EO% 0.1 LAB L100.2500 0-1 % Normal BASO% 0.0 LAB L100.2550 0.0-0.9 % Normal IM GRAN % 0.200 Result Comment: IG% - Immature Granulocytes (promyelocytes, myelocytes and metamyelocytes) > 1% indicates that a LEFT SHIFT is Present. LAB L100.2620 2.0-7.7 X10 3/uL High Absolute Neut 9.3 LAB L100.2720 0.83-4.51 X10 3/ul Low Absolute Lymph 0.38 LAB L100.4500 Normal SMEAR COMMENT SCANNED Result Comment: LYMPHOPENIA NOTED Performed By: #### L100.0100 #### [facility] [address] [place], [place], [id number] PROTHROMBIN TIME W/INR Collected: 09/12/2017 Status: F Source: [place] 5:20 PM [facility] REPOSITORY TYPE CODE TESTS RESULT OUT OF RANGE REFERENCE UNITS LAB L300.4150 11.7-14.9 SECONDS High PROTIME 19.2 LAB L300.4200 Normal INR 1.6 Performed By: #### L300.3900, L300.4310, L500.4050 #### [facility] [address] [place], [place], [id number] PARTIAL THROMBOPLAST Collected: 09/12/2017 Status: F Source: [facility] 5:20 PM [facility] REPOSITORY TYPE CODE TESTS RESULT OUT OF RANGE REFERENCE UNITS LAB L300.4310 24.1-36.2 Seconds Normal PTT 30.5 Performed By: #### L300.3900, L300.4310, L500.4050 #### [facility] [address] [place], [place], [id number] COMPREHENSIVE METABOLIC Collected: 09/12/2017 Status: F Source: [place] PROFIL 5:20 PM [facility] REPOSITORY TYPE CODE TESTS RESULT OUT OF RANGE REFERENCE UNITS LAB L501.0100 74-106 mg/dL High GLU 190 Result Comment: Fasting Glucose result greater than or equal to 126 mg/dL suggests DIABETES MELLITUS per A.D.A. criteria. Please note revised GLUCOSE reference range effective 2017. LAB L501.1000 7-18 mg/dL Normal BUN 15 LAB L501.1100 0.70-1.30 mg/dL Normal CREAT,SERUM 0.88 Result Comment: The validity of the calculated GFR AND GFRAA in patients over 70 years has not been determined. Clinical correlation is essential. LAB L501.1110 >60 mL/min Normal EST GFR 89 Result Comment: Non- GFR Calc LAB L501.1115 >60 mL/min Normal EST GFR - AA 108 Result Comment: GFR Calc LAB L501.1255 ml/min Normal Estimated CRCL 74.89 LAB L501.1300 10-20 RATIO Normal BUN/CRE 16.9 LAB L501.1500 6.4-8. g/dL Low 2 T PROT 2.6 LAB L501.1800 3.2-5. g/dL Low 0 ALB 1.5 LAB L501.1950 2.2-4. g/dL Low 2 GLOB 1.1 LAB L501.2000 0.9-2. RATIO Normal 4 A/G 1.4 LAB L501.2200 8.5-10 mg/dL Low .1 CA 7.0 LAB L501.4100 15-37 U/L Low AST 11 LAB L501.4305 45-117 U/L Low ALK P 25 LAB L501.4405 16-61 U/L Low ALT < 6 LAB L501.4600 0.20-1 mg/dL Normal .00 T BILI 0.60 LAB L501.5300 136-14 mmol/L Normal 5 NA 145 LAB L501.5600 3.5-5. mmol/L Normal 1 K 4.4 LAB L501.5900 98-107 mmol/L High CL 112 LAB L501.6100 21.0-3 mmol/L Normal 2.0 CO2 25.0 LAB L501.6200 5-15 Normal GAP 8 Performed By: #### L300.3900, L300.4310, L500.4050 #### [facility] [address] [place], [place], [address] CBC W/DIFF, AUTOMATED Collected: 09/12/2017 Status: F Source: [place] 4:09 PM [facility] REPOSITORY TYPE CODE TESTS RESULT OUT OF RANGE REFERENCE UNITS LAB L100.1000 4.4-11.0 K/mm3 Normal WBC 8.7 LAB L100.1200 4.6-6.2 M/mm3 Low RBC 1.92 LAB L100.1300 13.0-16.5 g/dl Low HGB 6.3 LAB L100.1400 40-54 % Low HCT 18.4 LAB L100.1500 80-94 fL High MCV 95.8 LAB L100.1600 27.0-32.0 pg High MCH 32.8 LAB L100.1700 32-36 g/gl Normal MCHC 34.2 LAB L100.1810 11.6-14.6 % Normal RDW CV 12.9 LAB L100.1820 35.1-43.9 fl High RDW SD 44.9 LAB L100.1900 150-450 K/mm3 Low PLT 133 LAB L100.2000 6.2-12.0 fl Normal MPV 8.5 LAB L100.2100 47-70 % High NEUT% 90.9 LAB L100.2200 19-41 % Low LY% 4.4 LAB L100.2300 0-10 % Normal MONO% 4.6 LAB L100.2400 0-5 % Normal EO% 0.0 LAB L100.2500 0-1 % Normal BASO% 0.0 LAB L100.2550 0.0-0.9 % Normal IM GRAN % 0.100 Result Comment: IG% - Immature Granulocytes (promyelocytes, myelocytes and metamyelocytes) > 1% indicates that a LEFT SHIFT is Present. LAB L100.2620 2.0-7.7 X10 3/uL High Absolute Neut 7.9 LAB L100.2720 0.83-4.51 X10 3/ul Low Absolute Lymph 0.38 LAB L100.4500 SMEAR Normal COMMENT Result Comment: LYMPHOPENIA NOTED Performed By: #### L100.0100 #### [facility] [address] [place], [place], [address] BASIC METABOLIC Collected: 09/12/2017 Status: F Source: [place] PROFILE ([facility]) 4:09 PM [facility] REPOSITORY TYPE CODE TESTS RESULT OUT OF RANGE REFERENCE UNITS LAB L501.0100 74-106 mg/dL High GLU 207 Result Comment: Glucose result greater than or equal to 200 mg/dL suggests DIABETES MELLITUS per A.D.A. criteria. Please note revised GLUCOSE reference range effective 2017. LAB L501.1000 7-18 mg/dL Normal BUN 15 LAB L501.1100 0.70-1.30 mg/dL Normal CREAT,SERUM 0.90 Result Comment: The validity of the calculated GFR AND GFRAA in patients over 70 years has not been determined. Clinical correlation is essential. LAB L501.1110 >60 mL/min Normal EST GFR 88 Result Comment: Non- GFR Calc LAB L501.1115 >60 mL/min Normal EST GFR - AA 106 Result Comment: GFR Calc LAB L501.1255 ml/min Normal Estimated CRCL 73.23 LAB L501.1300 10-20 RATIO Normal BUN/CRE 16.7 LAB L501.2200 8.5-10 mg/dL Low .1 CA 7.0 LAB L501.5300 136-14 mmol/L Normal 5 NA 145 LAB L501.5600 3.5-5. mmol/L Normal 1 K 4.0 LAB L501.5900 98-107 mmol/L High CL 113 LAB L501.6100 21.0-3 mmol/L Normal 2.0 CO2 25.0 LAB L501.6200 5-15 Normal GAP 7 Performed By: #### L500.2500 #### [facility] [place], [address] TYPE AND SCREEN Collected: 09/12/2017 Status: F Source: [place] 4:09 PM [facility] REPOSITORY Order Comment: CMV NEG? N Number of units to transfuse: 2 Is there a >20% drop in pt's BP? Y Is the EBL >/= 1000ml in adults or >/= 12ml/kg in children? N Is there an orthostatic change in pt's BP(SBP drop >10mmHg)? Y Is pt's HR > 100 bpm? N Reason for Ordering Blood: Acute Are the blood/blood products to be transfused? Y Is the patient having/had surgery? Y Give When? When Ready Irradiated? N Leukodepleted? Y TYPE CODE TESTS RESULT OUT OF RANGE REFERENCE UNITS LAB B10.0800 O Normal BLOOD TYPE GEL POSITIVE LAB B100.4000 Normal Antibody NEGATIVE Screen Performed By: #### B101.7450 #### [facility] [address] [place], [address] RC Collected: 09/12/2017 Status: F Source: [place] 4:09 PM [facility] REPOSITORY TYPE CODE TESTS RESULT OUT OF REFERENCE UNITS RANGE LAB U100.0000 [id number] TRANSFUSED PRODUCT: T AND S with Crossmatch, Red Cells COUNT: 2 Performed By: #### U100.0000 #### [facility] - refer to report for specific site RC Collected: 09/12/2017 Status: F Source: [place] 4:09 PM [facility] REPOSITORY TYPE CODE TESTS RESULT OUT OF REFERENCE UNITS RANGE LAB U100.0000 [id number] TRANSFUSED PRODUCT: T AND S with Crossmatch, Red Cells COUNT: 2 Performed By: #### U100.0000 #### [facility] - refer to report for specific site CBC W/DIFF, AUTOMATED Collected: 09/12/2017 Status: F Source: [place] 3:00 PM [facility] REPOSITORY TYPE CODE TESTS RESULT OUT OF RANGE REFERENCE UNITS LAB L100.1000 4.4-11.0 K/mm3 Normal WBC 6.1 LAB L100.1200 4.6-6.2 M/mm3 Low RBC 2.21 LAB L100.1300 13.0-16.5 g/dl Low HGB 7.1 LAB L100.1400 40-54 % Low HCT 21.2 LAB L100.1500 80-94 fL High MCV 95.9 LAB L100.1600 27.0-32.0 pg High MCH 32.1 LAB L100.1700 32-36 g/gl Normal MCHC 33.5 LAB L100.1810 11.6-14.6 % Normal RDW CV 12.7 LAB L100.1820 35.1-43.9 fl High RDW SD 44.3 LAB L100.1900 150-450 K/mm3 Low PLT 118 LAB L100.2000 6.2-12.0 fl Normal MPV 8.5 LAB L100.2100 47-70 % High NEUT% 92.7 LAB L100.2200 19-41 % Low LY% 3.9 LAB L100.2300 0-10 % Normal MONO% 3.4 LAB L100.2400 0-5 % Normal EO% 0.0 LAB L100.2500 0-1 % Normal BASO% 0.0 LAB L100.2550 0.0-0.9 % Normal IM GRAN % 0.000 Result Comment: IG% - Immature Granulocytes (promyelocytes, myelocytes and metamyelocytes) > 1% indicates that a LEFT SHIFT is Present. LAB L100.2620 2.0-7.7 X10 3/uL Normal Absolute Neut 5.7 LAB L100.2720 0.83-4.51 X10 3/ul Low Absolute Lymph 0.24 LAB L100.4500 Normal SMEAR COMMENT SCANNED Result Comment: LYMPHOPENIA NOTED Performed By: #### L100.0100 #### [facility] [address] [place], [address] OPERATIVE REPORT Observed: 09/12/2017 Status: F Source: [place] 12:32 PM [facility] REPOSITORY [facility] Medical Records Department [address] [place] [address] Operative Report 09/12/17 1224 MR#: [id number] Acct: [id number] Name: CONNOR GU Rep #: [id number] : 1940 77 From: Philip Pennington MD PCP: AKIN Cox Status: ADM IN [place] [facility] Report of Operation Date of Procedure: 09/12/17 Pre-Operative Diagnosis: Prostate cancer high risk disease. Post-Operative Diagnosis: Same Surgery/Procedure Performed:: Laparoscopic robotic assisted radical prostatectomy, bilateral pelvic lymph node dissection, EMG monitoring of the pelvic nerves and sphincter, suture suspension of the urethra. Description of Surgical Findings:: 77-year-old male taken back to the operating room after smooth induction of general anesthesia he was placed supine on the table, abdomen was shaved prepped and draped in usual sterile fashion, made a incision in the umbilicus he had a small umbilical hernia the size of my pinky and then I used a Veress needle and insufflated the peritoneum with CO2 gas we placed our ports docked the robot I first reflected the colon off the lateral wall he had a prior mesh placed that was evident on the patient's left inguinal area extending down to the pelvis, I then was able to reflect the colon out of the pelvis dissected the seminal vesicle and vas deferens of the right and left side behind the prostate these were dissected cleared created a space between the rectum and the prostate we then dropped the bladder and this is a very difficult procedure because the bladder was very adherent to the prior mesh took a lot of dissection 2 get the bladder off the mesh eventually the bladder was released off the mesh put on traction and then proceeded with lymph node dissection this was done on the right and left side in the grain broker and market operator space the lymph node tissue was removed actually there was no enlarged lymph nodes look normal size looking lymph nodes after completing the lymph node dissection on the right grain broker and market operator space and left the operating up grain broker and market operator space that I went to the prostate incised the endopelvic fascia opened up the apex put a stitch in dorsal vein complex then pulled back to the bladder and prostate junction dissected between the bladder and prostate with electrocautery centimeter wide opening in the bladder and then dissected until I identified the trigone in the left and right ureteral orifice I then dissected behind the trigone down to the vas deferens and seminal vesicles, we then placed the EMG electrodes into the pelvis we checked the right side and the left side down the action potential and nerves running in the right and left side I then elevated the prostate up and then we put clips through the pedicles and then identified the neurovascular bundle and freed this off the prostate off the right side is can have a very difficult dissection on the right side all the way up to the apex at the end of the dissection we check for EMG activity and is still present we then went back to the left side and place clips to the pedicle on the left side and then dissected the neurovascular bundle off the left side of the prostate and then check for EMG activity and this was present we then transected the dorsal vein complex place an extra stitch in the dorsal vein complex then transected through the urethra and then transected to the posterior aspect of the prostate we do not be his attachment to the rectum being very careful to dissect in this area. We inspected and checked the vault very carefully after removing the prostate we then did a reconstruction of the bladder neck reverse tennis racquet formation and then did a anastomosis and supra suture suspension of the urethra to the to the urethral stump over a catheter from 6:00 to 12:00. Once this was completed flush the catheter there was one small gap posterior this is recommended as an extra stitch was placed and there was no gap. Did not leave a drain in talk to the bladder flap back over the bladder catheter was left in place and the patient anesthetic was reversed taken back to the PACU in good condition inspected the prostate there is no major violations and the anastomosis went well will leave the catheter in for 2 weeks because of the complex reconstruction patient anesthetic was reversed taken back to PACU in good condition. Type of Anesthesia:: General Drains: reardon - Admit VTE Documentation VTE Present on Admission: No VTE Mechan Device Prophylaxis: SCD's VTE Pharm Prophylaxis ordered?: No Reason prophylaxis not ordered:: Treatment Not Indicated 09/12/17 1232 <Electronically signed by Philip Pennington MD> Date Philip Pennington MD CC: USED CAR LOT PORTER-BC Miranda Jacobs; Philip Pennington MD Signed PROSTATE RADICAL Observed: 09/12/2017 Status: F Source: [place] RESECTION 7:45 AM [facility] REPOSITORY Patient: CONNOR GU : 1940 (77/M) Acct Num: [id number] Phys: Aditi LEOS,Philip Christina Unit Num: [id number] Loc: MS3 HI442-0 Specimen: [id number] Received: 09/12/17 - 2651 Spec Type: PROSTATE TISSUES TISSUES: A. Prostate, NOS B. Lymph node of pelvis, NOS C. Lymph node of pelvis, NOS COMMENT The tumor involves both right and left lobes, apical and middle portions. The tumor measures in the right lobe 1 x 1 cm (measured microscopically, and in slides #7, #10, #11 and #16). The tumor in the left lobe measures 2 x 0.9 cm ( measured microscopically and present in slides #5, #8, and #9). Please make reference to previous specimen [id number] left prostate, apex, mid prostate core biopsy with diagnosis of adenocarcinoma. GROSS DESCRIPTION A: Received in fixative is one container labeled with the patient's name and designated prostate. The specimen consists of a prostate gland with attached right and left seminal vesicles and vas deferens. The prostate gland is smooth and glistening. No mass lesions are palpated. The prostate measures 6 cm superoinferiorly, 5.8 cm transversely and 4.5 cm anteroposteriorly. The specimen weighs 97 grams. The specimen is differentially inked as follows: anterior red , right half blue, left half green, and posterior surface black. Sections reveal a lobulated yellow-white cut surface. Supervisor Post Wave sections are submitted in 20 cassettes as follows: 1 distal urethral shave; 2 proximal urethral shave (bladder shave); 3 seminal vesicles; 4 prostate; most basal section; 5-8 apex; 9-16 mid portion of prostate; 17-20 basal portion of prostate. AM:maria isabel 09/13/17 B: Received in fixative is one container labeled with the patient's name and designated right pelvic lymph node. The specimen consists of a piece of yellow adipose tissue measuring 2 x 1.5 x 0.6 cm. No obvious lymph node is identified. The specimen is bisected and submitted entirely in 2 cassette. Sections will be submitted after overnight fixation. C: Received in fixative is one container labeled with the patient's name and designated left pelvic lymph node. The specimen consists of a piece of cooper soft tissue measuring 0.8 x 0.8 x 0.2 cm. The entire specimen is submitted in one cassette. Sections will be submitted after overnight fixation. SJ:maria isabel 09/12/17 TC:0 CPT: 92959, 22455 x2 HEADER OPERATION: Laparoscopic robotic radical prostatectomy with intraoperative PRE-OP DIAGNOSIS: Prostate cancer; elevated PSA TISSUE SUBMITTED: A. Prostate, B. Right pelvic lymph node, C. Left pelvic lymph node MICROSCOPIC DESCRIPTION Slides are reviewed. MICROSCOPIC DIAGNOSIS A. Prostate, radical prostatectomy: Prostate adenocarcinoma. See cancer summary below. B. Right pelvic lymph node, biopsy: One lymph node, negative for metastatic carcinoma. C. Left pelvic lymph node, biopsy: A piece of mature adipose tissue, negative for metastatic carcinoma. Lymph node tissue not identified. Cancer Summary (including specimen A, B and C): PROSTATE CANCER (RADICAL) SUMMARY: Procedure - Radical prostatectomy. Prostate size - 6 cm superoinferiorly, 5.8 cm transversely, 4.5 cm anteroposteriorly Prostate weight - 97 gm Lymph node sampling - pelvic lymph node dissection Histologic type - adenocarcinoma (acinar, not otherwise specified) Histologic grade (Glendale Pattern): Primary pattern - 5 Secondary pattern - 4 Tertiary pattern - 3 Total Glendale score: 9 Tumor Quantitation: Proportion (%) of prostate involved by tumor - about 15-20% Tumor size - See comment Extraprostatic extension - not identified Seminal vesicle invasion - not identified Margins - uninvolved by invasive carcinoma Treatment effect on carcinoma - no known presurgical therapy Lymph-Vascular invasion - not identified Perineural invasion - present Regional lymph nodes - Number examined - 1 Number involved - 0 Distant metastasis - NA Additional pathologic findings: - benign prostatic nodular hyperplasia, glandular and stromal type. - chronic inflammation. Ancillary studies - not performed. PATHOLOGIC STAGE: pT2c pN0 MX The above summary is in compliance with [employer] (CAP) Cancer Protocols Checklist and [place] Joint Committee on Cancer (AJCC), Staging Manual, 7th Ed. PSA RESULTS No results available. Signed Baudilio Amin 09/14/17 <signature on file> Performed By: #### PPROST #### [facility] [address] [place], [address] 12 LEAD ELECTROCARDIOGRAM Observed: 09/10/2017 Status: F Source: [place] 2:50 PM [facility] REPOSITORY [facility] Cardiovascular Services [address] [place] [address] [place] [facility]06[place]17 1427 MR#: [id number] Acct: [id number] Name: CONNOR GU Rep #: [id number] : 1940 77 From: Samir Ramsay MD Attending Dr: Aditi LEOS,Philip Christina Status: PRE IN Ordering Dr: Royal Cobb MD Date: 09/06/17 Location: [facility] Sex: M C Admitted: Test Reason : Blood Pressure : / mmHG Vent. Rate : 053 BPM Atrial Rate : 053 BPM P-R Int : 160 ms QRS Dur : 098 ms QT Int : 456 ms P-R-T Axes : 050 006 039 degrees QTc Int : 427 ms Sinus bradycardia Otherwise normal ECG Confirmed by SAMIR RAMSAY ([id number]), newspaper or periodical editor JAYLEN STEVENSON ([id number]) on 09/10/2017 2:50:13 PM Referred By: Philip Pennington Confirmed By:SAMIR RAMSAY 09/10/17 1450 Date Samir Ramsay MD CC: [facility] Miranda Jacobs; Royal Cobb MD; Philip Pennington MD Date Dictated: 09/06/171426 Date Transcribed: 09/06/171426 Die Try Out Worker: Signed CBC-COMPLETE BLOOD CNT Collected: 09/06/2017 Status: F Source: [place] NO DIFF 3:42 PM [facility] REPOSITORY TYPE CODE TESTS RESULT OUT OF RANGE REFERENCE UNITS LAB L100.1000 4.4-11.0 K/mm3 Low WBC 4.1 LAB L100.1200 4.6-6.2 M/mm3 Low RBC 4.20 LAB L100.1300 13.0-16.5 g/dl Normal HGB 13.9 LAB L100.1400 40-54 % Normal HCT 40.3 LAB L100.1500 80-94 fL High MCV 96.0 LAB L100.1600 27.0-32.0 pg High MCH 33.1 LAB L100.1700 32-36 g/gl Normal MCHC 34.5 LAB L100.1810 11.6-14.6 % Normal RDW CV 12.5 LAB L100.1820 35.1-43.9 fl Normal RDW SD 42.6 LAB L100.1900 150-450 K/mm3 Normal PLT 170 LAB L100.2000 6.2-12.0 fl Normal MPV 9.5 Performed By: #### L100.0500 #### [facility] [address] [place], [place], [id number] TYPE AND SCREEN Collected: 09/06/2017 Status: F Source: [place] 3:42 PM [facility] REPOSITORY Order Comment: Reason for Type AND Screen/Red Cells: SURGERY Type of Surgery: RADICAL PROSTATECTOMY TYPE CODE TESTS RESULT OUT OF RANGE REFERENCE UNITS LAB B10.0800 O Normal BLOOD TYPE GEL POSITIVE LAB B100.4000 Normal Antibody NEGATIVE Screen Performed By: #### B101.7450 #### [facility] [address] [place], [address] PELVIS W/WO CONTRAST Observed: 08/30/2017 Status: F Source: [place] 9:27 AM [facility] REPOSITORY [facility] Imaging Services [address] [place] [address] Pelvis W/WO Contrast MR#: [id number] Acct: [id number] Name: CONNOR GU Rep #: [id number] : 1940 M 77 From: Sigrid Mustafa PCP: AKIN Cox Status: REG CLI Study: Pelvis W/WO Contrast Date of Exam: 08/30/17 Exam# [id number] Ordering Dr: Philip Pennington MD STUDY: MR PELVIS WITH T WITHOUT CONTRAST REASON FOR EXAM: Male, 77 years old. History of prostrate carcinoma. TECHNIQUE: Standardized fat and water weighted pulse sequences were obtained in all 3 orthogonal planes, pre-and post contrast administration. 8 ml of Gadavist contrast material was administered intravenously for the contrast portion of the examination. COMPARISON: CT abdomen/pelvis: 08/06/2017. FINDINGS: Image quality of the right hemipelvis is somewhat hampered by metallic susceptibility artifact from patient's total right hip arthroplasty. The prostate gland is enlarged(5.8 x 5.7 x 4.8 cm) diffusely heterogenous in signal intensity due to multiple variable size degenerated cystic nodules, the largest is 2.8 x 2.4 cm present superiorly projecting into the bladder base. There is a smooth capsular bulge with no demonstrable stranding of fat outside prostrate. Seminal vesicles appear symmetrical. No pelvic lymphadenopathy demonstrated. There is diffuse up to 4.5 mm wall thickening of the urinary bladder. Unremarkable visualized small intestine. There are colonic diverticula of the sigmoid colon consistent with chronic diverticulosis. There is no pelvic fluid. There is diffuse atherosclerotic calcification of the pelvic arteries with elongation and tortuosity. There are diffuse degenerative changes of the visualized lumbar spine. MRI/Pelvis W/WO Contrast IMPRESSION: Enlarged prostrate gland, diffusely heterogenous in signal intensity with diagnostic uncertainty. Multifocal disease is not ruled out. No evidence of capsular penetration/extracapsular extension of the disease demonstrated. Multi quadrant transrectal ultrasound(TRUS) or MRI guided prostate biopsies is recommended for tissue diagnosis. Electronically Signed: Prudence Mustafa MD at 8:34 EDT Tel , Service support , CC: [facility] Miranda Jacobs; Philip Pennington MD Die Try Out Worker: Signed CREATININE FINGERSTICK Collected: 08/06/2017 Status: F Source: [place] 3:57 PM [facility] REPOSITORY TYPE CODE TESTS RESULT OUT OF RANGE REFERENCE UNITS LAB L9100.0210 0.70-1.30 mg/dL Low CREATININE WB 0.6 LAB L9100.0220 >60 mL/min EGFR WB Normal > 60.0000 Performed By: #### L9100.0200 #### [facility] Point of Care [address] [facility] [place] [address] ABDOMEN/PELVIS WITH Observed: 08/06/2017 Status: F Source: [place] CONTRAST 3:42 PM [facility] REPOSITORY [facility] Imaging Services [address] [place] [address] Abdomen/Pelvis WITH Contrast MR#: [id number] Acct: [id number] Name: CONNOR GU Rep #: [id number] : 1940 M 77 From: Janes Benson MD PCP: Miranda [facility] Status: REG CLI Study: Abdomen/Pelvis WITH Contrast Date of Exam: 08/06/17 Exam# [id number] Ordering Dr: Philip Pennington MD STUDY: CT ABDOMEN AND PELVIS WITH CONTRAST REASON FOR EXAM: Male, 77 years old. PROSTATE CANCER NEW DIAGNOSIS RADIATION DOSAGE (If Supplied By Facility): CTDIvol = ( 10.06 ) mGy, DLP = ( 812.25 ) mGycm TECHNIQUE: Transaxial images were obtained from the dome of the diaphragm to the symphysis pubis without oral contrast. 100 ml of Isovue 300 contrast was administered. Sagittal and coronal images were reconstructed. Individualized dose optimization techniques were used for this CT. COMPARISON: None. FINDINGS: Calcified granuloma of left lower lobe. The visualized portions of the heart are within normal limits. Normal liver. There are multiple gallstones. Normal spleen. Normal pancreas. Normal bilateral adrenal glands. Normal right kidney. There is a 43 mm hypodensity of the Left kidney. This is 13.9 Hounsfield units. Normal visualized stomach. Normal small intestine. Stool throughout the colon. The appendix is visualized and appears normal. There are multiple diverticuli of the colon. There is diverticulosis but no radiographic signs for diverticulitis. There are calcifications of the abdominal aorta and vascular structures. This is consistent for atherosclerotic disease. There is no abdominal aortic aneurysm. Normal inferior vena cava. Subcentimeter mesenteric lymph nodes. Normal urinary bladder. There are prostatic calcifications.Spinal fixation hardware is noted. There is a small umbilical hernia containing fat. There are degenerative changes of the osseous structures. 4.1 mm sclerotic focus in the right iliac bone. This may be a bone island. Series [address]/Abdomen/Pelvis WITH Contrast IMPRESSION: Cholelithiasis. Simple left renal cyst. Constipation There are multiple diverticuli of the colon. There is diverticulosis but no radiographic signs for diverticulitis. There is a small umbilical hernia containing fat. 4.1 mm sclerotic focus in the right iliac bone. This may be a bone island. Other findings as above. Electronically Signed: Janes Benson MD at 16:32 EDT , Service support , CC: AKIN Pennintgon MD Die Try Out Worker: Signed BONE SCAN WHOLE Observed: 08/03/2017 Status: F Source: [place] BODY 7:38 AM [facility] REPOSITORY [facility] [place] [address] Bone Scan Whole Body MR#: [id number] Acct: [id number] Name: CONNOR GU Rep #: [id number] : 1940 M 77 From: Markell Canales DO PCP: AKIN Cox Status: REG CLI Study: Bone Scan Whole Body Date of Exam: 08/03/17 Exam# [id number] Ordering Dr: Philip Pennington MD CLINICAL: 77-year-old male with apparent history of carcinoma of the prostate. WHOLE BODY 99m Tc MDP RADIONUCLIDE BONE SCINTIGRAPHY COMPARISON: None available FINDINGS: Following the intravenous administration of 25.0 mCi of 99m Tc MDP, whole body bone images reveal: 1. Increased radiopharmaceutical concentration is defined in the 12th thoracic vertebra posteriorly on the left, third-fifth lumbar vertebra posteriorly on the left and right, left posterior sacrum, the acromioclavicular and sternoclavicular compartments of both shoulders, the right ankle articulation. 2. The remaining skeletal structures are scintigraphically unremarkable with normal-appearing renal images and urinary bladder activity identified. NM/Bone Scan Whole Body IMPRESSION: 1. The increase in radiopharmaceutical concentration identified in the thoracic and lumbar spine, sacrum, bilateral shoulders, the right ankle is most consistent with degenerative arthritis. 2. There is no definitive typical scintigraphic evidence of skeletal metastatic disease on the current examination. Electronically Signed: Markell Canales DO at 8:03 EDT Tel , Service support , CC: AKIN Pennington MD Die Try Out Worker: Signed PROSTATE BIOPSY Observed: 07/19/2017 Status: F Source: [place] BILATERAL 12:00 AM [facility] REPOSITORY Patient: CONNOR GU : 1940 (77/M) Acct Num: [id number] Phys: Aditi LEOS,Philip Christina Unit Num: [id number] Loc: LABSPEC Specimen: [id number] Received: 07/20/17752 Spec Type: PROST BX TISSUES TISSUES: A. PROSTATE RIGHT - APEX B. PROSTATE RIGHT - MID C. PROSTATE RIGHT - BASE D. PROSTATE LEFT - APEX E. PROSTATE LEFT - MID F. PROSTATE LEFT - BASE COMMENT D. The specimen is fragmented and the exact number of cores involved cannot be assessed. E AND F. Immunohistochemistry ([id number]) supports the above diagnosis. GROSS DESCRIPTION A - Received is one container designated prostate, right apex. The specimen consists of two elongated fragments of light cooper-white soft tissue measuring 1.2 and 1.5 cm in length and 0.1 cm in diameter. The specimen is totally submitted in one cassette. B - Received is one container designated prostate, right mid. The specimen consists of two elongated fragments of light cooper-white soft tissue measuring 1.2 and 1.8 cm in length and 0.1 cm in diameter. The specimen is totally submitted in one cassette. C - Received is one container designated prostate, right base. The specimen consists of two elongated fragments of light cooper-white soft tissue each measuring 1.2 cm in length and 0.1 cm in diameter. The specimen is totally submitted in one cassette. D - Received is one container designated prostate, left apex. The specimen consists of five elongated fragments of light cooper-white soft tissue measuring 0.3 to 0.5 cm in length and 0.1 cm in diameter. The specimen is totally submitted in one cassette. E - Received is one container designated prostate, left mid. The specimen consists of two elongated fragments of light cooper-white soft tissue measuring 0.3 and 1 cm in length and 0.1 cm in diameter. The specimen is totally submitted in one cassette. F - Received is one container designated prostate, left base. The specimen consists of two elongated fragments of light cooper-white soft tissue measuring 0.8 and 1.2 cm in length and 0.1 cm in diameter. The specimen is totally submitted in one cassette. / SJ:rg 07/20/17 TC:0 CPT: G0146 HEADER OPERATION: Prostate biopsy PRE-OP DIAGNOSIS: Elevated PSA TISSUE SUBMITTED: A - Right apex, B - Right mid, C - Right base, D - Left apex, E - Left mid, F - Left base MICROSCOPIC DESCRIPTION Slides are reviewed. MICROSCOPIC DIAGNOSIS A. Right prostate, apex, core biopsy: Prostatic tissue, negative for malignancy. Focal mild chronic inflammation. B. Right prostate, mid, core biopsy: Prostatic tissue, negative for malignancy. Focal mild chronic inflammation. C. Right prostate, base, core biopsy: Prostatic tissue, negative for malignancy. D. Left prostate, apex, core biopsy: Prostatic adenocarcinoma: Jaci grade: 5+4=9 Number of cores involved: See comment. Proportion of tissue involved: ~60% Perineural invasion: Not identified. Greatest tumor length: 0.4 cm Chronic inflammation. E. Left prostate, mid, core biopsy: Prostatic adenocarcinoma: Jaci grade: 5+5=10 Number of cores involved: 1 out of 2 Proportion of tissue involved: ~5-10% Perineural invasion: Not identified. Greatest tumor length: 0.2 cm See comment. F. Left prostate, base, core biopsy: Prostatic tissue, negative for malignancy. See comment. SJ:sheng 07/23/17 PSA RESULTS No results available. Signed Baudilio Amin 07/23/17 <signature on file> Performed By: #### PPROSBIL #### [facility] [place], [address] IMMUNOHISTOCHEMISTRY Observed: 07/19/2017 Status: F Source: [place] 12:00 AM [facility] REPOSITORY Patient: CONNOR GU : 1940 (77/M) Acct Num: [id number] Phys: Aditi LEOS,Jasmeet Unit Num: [id number] Loc: LABSPEC Specimen: [id number] Received: 07/23/17 1132 Spec Type: IMMUNO TISSUES TISSUES: E. PROSTATE LEFT F. PROSTATE LEFT SPECIMEN INFORMATION: Tissue Source: E - Left prostate, mid, core biopsy, F - Left prostate, base, core biopsy Clinical Info: Elevated PSA Specimen Number: [id number] E AND F CPT code: 32337, 72416 x3 METHODOLOGY: Deparaffinized sections of prefer/formalin-fixed tissue or PAP/DQ stained slides are incubated with monoclonal/polyclonal antibodies/oligonucleotide probes. Localization is made via biotin free immunoperoxidase method. Appropriate controls are performed and reacted as expected. Results on target cell population are indicated in the following table: RESULTS: ANTIBODY / CLONE RESULT Block E P40 (BC28) negative 34BE12 (34BE12) negative Block F P40 (BC28) positive 34BE12 (34BE12) positive These tests were developed and their performance characteristics determined by [facility]. They may not have been cleared or approved by the U.S. Food and Drug Administration. The FDA has determined that such clearance or approval is not necessary. INTERPRETATION: E. Left prostate, mid, core biopsy: Adenocarcinoma. F. Left prostate, base, core biopsy: Negative for malignancy. SJ:sheng 07/23/17 PHYSICIAN AND INSTITUTION [place] [id number] Signed Baudilio Amin 07/23/17 <signature on file> Performed By: #### PIMM #### [facility] [address] [place] [address], [address] ALLERGIES ALLERGIES DATE TYPE / CODE NAME / CODE REACTION SEVERITY SOURCE 09/06/2017 Drug No Known Unknown [facility] Allergy/4160 Allergies/F00 [facility] 17413(SNOMED 8022559(RXNOR Repository CT) M) ENCOUNTERS ENCOUNTERS ADMIT/DISCHARGE ACCOUNT ADMITTING ENCOUNTER LOCATION SOURCE NUMBER CLASS 02/26/2018 [id number] Ambulatory Eagar Eagar 7 [facility] ing:LAB Repository 11/05/2017 [id number] Ambulatory Eagar Penny 6 [facility] ing:LAB Repository 09/12/2017/ [id number] Ambulatory BMSBuilding:B Penny 8 6 [facility] Repository 09/12/2017/ [id number] Ambulatory BMSBuilding:W Penny 8 7 [facility] Repository 09/12/2017/ [id number] Philip Pennington Inpatient Penny Penny 8 5 [facility] Encounter [facility] ing:VG2Gkhx: Repository IQ705Kmo: 1 09/06/2017/ [id number] Ambulatory BMSBuilding:W Penny 8 0 [facility] Repository 08/30/2017 [id number] Ambulatory Penny Penny 0 [facility] ing:MRI Repository 08/06/2017 [id number] Ambulatory Penny Eagar 2 [facility] ing:CT Repository 08/03/2017 [id number] Ambulatory Eagar Eagar 0 [facility] ing:NM Repository 07/19/2017 [id number] Ambulatory Eagar Penny 6 [facility] ing:LABSPEC Repository PAYERS PAYERS ENCOUNTER GUARANTOR PAYER SUBSCRIBER SOURCE 02/26/2018 CONNOR Vasquez Primary CONNOR Vasquez Penny [id number] Insurance:MEDICARE STEINERD[facility] [id number] Medical Center [address]Uko: Number: Repository [id number] (HP) Date:2018-02-26 02/26/2018 Secondary CONNOR Vasquez Penny Insurance:EVERENCE STEINERDOB: [facility] [id number] Hospital Number: Repository [id number] Date:6058-83-58[address], [place] [address]SO: 02/26/2018 Tertiary NOT GIVENUNK Penny Insurance:SELF PAY [facility] Number: Effective Repository Date:2018-02-26 11/05/2017 CONNOR Vasquez Primary CONNOR Cabreraoster [id number] Insurance:MEDICARE STEINERDOB[facility] [id number] Medical Center [address]Pcn: Number: Repository [id number] (HP) Date:2017-11-05 11/05/2017 Secondary CONNOR Vasquez Penny Insurance:EVERENCE STEINERDOB: [facility] [id number] Hospital Number: Repository [id number] Date:0449-50-47OD [address] [place] [address]YH: 11/05/2017 Tertiary NOT GIVENUNK Eagar Insurance:SELF PAY [facility] Number: Effective Repository Date:2017-11-05 09/12/2017 CONNOR Vasquez Primary CONNOR Vasquez Eagar [id number] Insurance:MEDICARE STEINERDOB: Community [place], [place] [facility] [id number] Medical Center [address]Cxe: Number: Repository [id number] (HP) Date:2017-08-16 09/12/2017 Secondary CONNOR Vasquez Penny Insurance:EVERENCE STEINERDOB: [facility] [id number] Hospital Number: Repository [id number] Date:2473-87-61NQ [address] [place] [address]UD: 09/12/2017 Tertiary NOT GIVENUNK Eagar Insurance:SELF PAY [facility] Number: Effective Repository Date:2017-09-12 09/12/2017 CONNOR Vasquez Primary CONNOR Vasquez Penny [id number] Insurance:MEDICARE STEINERDOB: Community [place], [place] [facility] [id number] [place] [address]Xfe: Number: Repository [id number] (HP) Date:2017-08-16 09/12/2017 Secondary CONNOR Vasquez Penny Insurance:EVERENCE STEINERDOB: [facility] [id number] Hospital Number: Repository [id number] Date:7825-73-52QE [address] [place] [address]AN: 09/12/2017 Tertiary NOT GIVENUNK Penny Insurance:SELF PAY [facility] Number: Effective Repository Date:2017-09-12 09/12/2017 CONNOR Vasquez Primary CONNOR Vasquez Penny [id number] Insurance:MEDICARE STEINERDOB: Community [place] [facility] [id number] Hospital [place] [address]Htr: Number: Repository [id number] (HP) Date:2017-08-16 09/12/2017 Secondary CONNOR Vasquez Penny Insurance:EVERENCE STEINERDOB: [facility] [id number] Hospital Number: Repository [id number] Date:8020-60-03AP [address] [place] [address]OC: 09/12/2017 Tertiary NOT GIVENUNK Penny Insurance:SELF PAY [facility] Number: Effective Repository Date:2017-08-16 09/06/2017 CONNOR Vasquez Primary CONNOR Vasquez Eagar [id number] Insurance:MEDICARE STEINERDOB: Community [place] [facility] [id number] Medical Center [address]Gxx: Number: Repository [id number] () Date:2017-08-16 09/06/2017 Secondary CONNOR Vasquez Eagar Insurance:EVERENCE TESSYERDOB: [facility] [id number] Hospital Number: Repository [id number] Date:5803-88-12SK [address] [place] [address]IA: 09/06/2017 Tertiary NOT GIVENUNK Penny Insurance:SELF PAY [facility] Hospital Number: Effective Repository Date:2017-09-06 08/30/2017 CONNOR Vasquez Primary CONNOR Vasquez Eagar [id number] Insurance:MEDICARE STEINERDOB: [facility] [place] [facility] [id number] Medical Center [address]Xnz: Number: Repository [id number] (HP) Date:2017-08-16 08/30/2017 Secondary CONNOR Vasquez Eagar Insurance:EVERENCE STEINERDOB: [facility] [id number] Hospital Number: Repository [id number] Date:9061-29-30XL [address] [place] [address]OT: 08/30/2017 Tertiary NOT GIVENUNK Penny Insurance:SELF PAY [facility] Number: Effective Repository Date:2017-08-16 08/06/2017 CONNOR Vasquez Primary CONNOR Vasquez Penny [id number] Insurance:MEDICARE STEINERDOB: Community [place] [facility] [id number] [address]Bnw: Number: Repository [id number] (HP) Date:2017-07-27 08/06/2017 Secondary CONNOR Vasquez Eagar Insurance:EVERENCE STEINERDOB: [facility] [id number] Hospital Number: Repository [id number] Date:4577-14-42WB [address], [place] [address]PV: 08/06/2017 Tertiary NOT GIVENUNK Eagar Insurance:SELF PAY [facility] Number: Effective Repository Date:2017-07-27 08/03/2017 CONNOR Vasquez Primary CONNOR M Eagar [id number] Insurance:MEDICARE STEINERDOB: [facility] [place] [facility] [id number] Medical Center [address]Dxf: Number: Repository [id number] (HP) Date:2017-07-27 08/03/2017 Secondary CONNOR M Eagar Insurance:EVERENCE STEINERDOB: [facility] [id number] Hospital Number: Repository [id number] Date:0734-35-95JO [address] [place] [address]QQ: 08/03/2017 Tertiary NOT GIVENUNK Eagar Insurance:SELF PAY [facility] Number: Effective Repository Date:2017-07-27 07/19/2017 CONNOR M Primary CONNOR Vasquez Penny [id number] Insurance:MEDICARE STEINERDOB: Community [place] [facility] [id number] Medical Center [address]Kxc: Number: Repository [id number] (HP) Date:2017-07-19 07/19/2017 Secondary CONNOR M Eagar Insurance:EVERENCE STE[facility]ERD[id number] Number: Repository [id number] Date:[id number] [place] [id number]: 07/19/2017 Tertiary NOT GIVENUNK Penny Insurance:SELF PAY [facility] Effective Repository Date:2017-07-19
== END ==
PROVIDERS: Referring Provider Urology; Visit Provider Urology
DX: R97.20 Elevated prostate specific antigen [PSA] (principal)
CPT/HCPCS: 36415; 84153

== ENCOUNTER → 2018-05-29 07:32 | Outpatient (CLI) | payer MEDICARE, OTHER, SELFPAY ==
[2017-09-12 19:16] VITALS: BMI 26.4
[2018-05-29 09:05] LABS: PSA,Total- Diagnostic < 0.01 ng/mL (0.0-4.0)
== END ==
PROVIDERS: Referring Provider Urology; Visit Provider Urology
DX: C61 Malignant neoplasm of prostate (principal)
CPT/HCPCS: 36415; 84153

== ENCOUNTER → 2018-09-10 | Outpatient (CLI) | payer MEDICARE, OTHER, SELFPAY ==
[2017-09-12 19:16] VITALS: BMI 26.4
[2018-09-10 10:37] LABS: PSA,Total- Diagnostic < 0.01 ng/mL (0.0-4.0)
== END | disposition home or self-care (01) ==
PROVIDERS: Family Provider Nurse Practitioner Family; PCP Nurse Practitioner Family; Referring Provider Urology; Visit Provider Urology
DX: C61 Malignant neoplasm of prostate (principal)
CPT/HCPCS: 36415; 84153

== ENCOUNTER → 2018-11-29 12:27 | Outpatient (CLI) | payer MEDICARE, OTHER, SELFPAY ==
[2017-09-12 19:16] VITALS: BMI 26.4
== END ==
PROVIDERS: Family Provider Nurse Practitioner Family; PCP Nurse Practitioner Family; Referring Provider Urology; Visit Provider Urology
DX: R35.0 Frequency of micturition (principal)
CPT/HCPCS: 87086

== ENCOUNTER → 2019-03-18 09:16 | Outpatient (CLI) | payer MEDICARE, OTHER, SELFPAY ==
[2017-09-12 19:16] VITALS: BMI 26.4
[2019-03-18 11:19] LABS: PSA,Total- Diagnostic < 0.01 ng/mL (0.0-4.0)
== END ==
PROVIDERS: Family Provider Nurse Practitioner Family; PCP Nurse Practitioner Family; Referring Provider Urology; Visit Provider Urology
DX: C61 Malignant neoplasm of prostate (principal)
CPT/HCPCS: 36415; 84153

== ENCOUNTER → 2019-09-08 08:54 | Outpatient (CLI) | payer MEDICARE, OTHER, SELFPAY ==
[2017-09-12 19:16] VITALS: BMI 26.4
[2019-09-08 10:28] LABS: PSA,Total- Diagnostic < 0.01 ng/mL (0.0-4.0)
== END ==
PROVIDERS: PCP Nurse Practitioner Family; Referring Provider Urology; Visit Provider Urology
DX: C61 Malignant neoplasm of prostate (principal)
CPT/HCPCS: 36415; 84153; G2023

== ENCOUNTER → 2020-04-07 09:07 | Outpatient (CLI) | payer MEDICARE, OTHER, SELFPAY ==
[2017-09-12 19:16] VITALS: BMI 26.4
[2020-04-07 10:53] LABS: PSA,Total- Diagnostic < 0.01 ng/mL (0.0-4.0)
== END ==
PROVIDERS: PCP Nurse Practitioner Family; Referring Provider Urology; Visit Provider Urology
DX: C61 Malignant neoplasm of prostate (principal)
CPT/HCPCS: 36415; 84153

== ENCOUNTER → 2020-06-22 11:14 | Outpatient (CLI) | payer MEDICARE, OTHER, SELFPAY ==
[2017-09-12 19:16] VITALS: BMI 26.4
[2020-06-22 12:25] LABS: PSA,Total- Diagnostic 0.01 ng/mL (0.0-4.0)
== END ==
PROVIDERS: PCP Nurse Practitioner Family; Referring Provider Urology; Visit Provider Urology
DX: E29.1 Testicular hypofunction (principal)
CPT/HCPCS: 36415; 84153; 84403

== ENCOUNTER 2020-07-23 10:21 | Outpatient (RCR) | payer MEDICARE, OTHER, SELFPAY ==
--- NOTE | 2020-07-23 11:14 | HP.PTEVAL_ITS ---
Patient's Visit Information CONNOR GU is a 80 year old M referred to Physical Therapy by Dr. Samir Skinner MD with a diagnosis of PD. Date of Evaluation: 07/23/20 Physical Therapist: Nahid Soliz, DPT, OCS, CSCS - Visit Plan Plan: Pt does ot have a desire for therapy as he is already exercising multiple times per week. Only wanted instruction in appropriate device. i did that today Instructing him and his on different types of walkers/rollators adn the benefits adn setbacks. Recommended standard wheeled walker with sliders due to its lightweight and ease of use. Also gave picture of rollator in case he wanted to a seat. Overall he walked much safer with wh walker vs no AD adn is agreeable to using. They will take my recommendation given on paper today with pictures to [facility] with provided script and get a whw walker for him. No further visits desired or required. d/c - Subjective Diagnosed with Parkinsons for four years adn progressing weakness and balance issues. No falls. Wants to get AD. present and just wants AD today. Sees safety trainer 2x/weeka dn does ex everyday. Does not want more ex, jsut AD. Sees chirpractor 2x/week. Occasionally catches toe. No pain.H/o back surgery years ago. Sleeping well. Employed as senior architectural designer for equipment at [employer] No stairs,threshold. Fairly sedentary outside of his regular exercise. - Objective Pt walks with head down and slightly hunched with short steps ad little weight shift but I back to PT without AD. Trasnfers I with UE. With wh walker takes longer steps adn shows more confidence, looks ahead and faster more functional gait pattern. LE AROM WFL, HS adn quads max tight. strength LE 4/5 LE. reflexes 3/3 patella and achilles. Sensaiton LE WNL to gross lgiht touch. R ankle slightly less ROM vs L as it has always been my weak side. UE aROM WFL but tends to only lift part way until cued. - Balance Scores Functional Gait Assessment Score: 21 % Disability: 30.0000 - Rehabilitation Potential Physical Therapy Diagnosis: PD adn related gait deficits - Anticipated Interventions Assistive Devices: Wheeled walker For the Purpose of:: To improve safety with gait Thank you for the opportunity to evaluate your patient. For Medicare and Medicare HMO plans, please review the plan of care and approve it. It will need to be FAXED BACK to us at [phone] for Medicare purposes. For Medicare only, by signing this I certify the plan of care. Please let me know if there are questions or concerns regarding this plan of care. Physician Signature: Date:
== END 2020-07-23 12:00 | disposition home or self-care (01) ==
LOC: PT 10:21
PROVIDERS: PCP Nurse Practitioner Family; Referring Provider Psychiatry & Neurology Neurology; Visit Provider Psychiatry & Neurology Neurology
DX: G20 Parkinson's disease (principal)
CPT/HCPCS: 97161

== ENCOUNTER 2020-09-15 07:50 | Outpatient (RCR) | payer MEDICARE, OTHER, SELFPAY ==
--- NOTE | 2020-09-15 13:44 | HP.PTEVAL ---
Patient's Visit Information CONNOR GU is a 80 year old M referred to Physical Therapy by Dr. Samir Skinner MD with a diagnosis of BACK PAIN. Date of Evaluation: 09/15/20 Physical Therapist: Raegan Perez PT, Cert MDT - Visit Plan Frequency: 1x/Week Duration: 1 Week Plan: EVAL ONLY BUT HOLD CHART BASED ON ABOVE INFORMATION. 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 SOME DESK BUT MOSTLY PHYSICAL WORK. 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 LIFTS QUITE A BIT AT TIMES. PULLING. Present symptoms: CENTRAL LOW BACK PAIN. NO LE PAIN, NUMBNESS OR TINGLING. Present since: CHRONIC. SIGNIFICANT LOW BACK PAIN ABOUT 7 YEARS AGO. Pain Scale: WORST 7/10, LEAST 0/10. Currently: 03/28. Commenced as a result of: ACCIDENT ABOUT 25 YEARS AGO. TRIED TO GRAB A FALLING STONE AND DAMAGED THE VERTEBRAE. Symptoms at onset: BACK PAIN. Worse: SITTING, STANDING. Better: LAYING BACK IN EASY CHAIR - PAIN GOES AWAY. Disturbed sleep: NO. Previous history/Previous treatment: 2013 BACK SURGERY - L45S1. R THR 2016. CHIROPRACTIC ADJUSTMENTS 2X'S A WEEK. CHIROPRACTOR FOR 2 OR MORE YEARS. NO TOMY'S. 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 GOT BACK BRACE FROM CHIROPRACTORS OFFICE THOUGH. CHIROPRACTOR IS IN [place]. Coughing/sneezing/straining: NEGATIVE. Gait: WALKING BACK HERE ABOUT 300 FEET WAS MORE THAN HE USUALLY DOES BUT IT WAS DOABLE. USING ROLLATOR QUITE A BIT. HAS ONE AT HOME AND AT WORK. Difficulty initiating urinatin: H/O PROSTATE CANCER DX'D 2018. PARKINSON'S DX'D 2017. Accidents: NO RECENT FALLS. Unexplained weight loss: NO. Imaging: THINKS THE CHIROPRACTOR DOES X-RAYS. PMH: SEE ABOVE. INTERNAL BLEEDING AFTER PROSTATE SX AND NEARLY . IN THE HOSPITAL A LONG TIME AND LOST A LOT OF STRENGTH. OTHER: HAS NOT SEEN A BACK SURGEON IN THIS AREA. HAD BACK SURGERY IN 2013 IN [place]. - Objective Sitting/Standing Posture: POOR. SEVERE SCOLIOSIS. Other Observations: THIS PATIENT AMBULATES INDEP'LY INTO PT WITHOUT ANY ASSISTIVE DEVICES X APPROX 300 FEET. HE WALKS WITH HIS HEAD DOWN, DECREASED LUISA STRIDE LENGTH (SHORT STEPS) AND DECREASED CADANCE AND WEIGHT SHIFTING. PATIENT IS ABLE TO TRANSFER INDEP'LY FROM SIT TO STAND WITHOUT UE ASSIST BUT IT IS DIFFICULT FOR HIM. Motor deficit: LLE WEAKNESS GREATER THAN RIGHT. PATIENTS DAUGHTER REPORTS HE FAVORS THE RIGHT SIDE AND HE MIGHT HAVE HAD A STROKE. PATIENT REPORTS IT ALSO MIGHT BE RELATED TO HIS PARKINSONS. RIGHT LE STRENGTH IS GROSSLY 5/5 WITH MMT'ING EXCEPT HIP GRADED 4/5. LLE: HIP 4-/5, KNEE 5/5, ANKLE 3-/5. Sensory deficit: LUISA LE LIGHT TOUCH SENSATION INTACT AND SYMMETRICAL WITH GROSS TESTING. ROM deficit: LUISA LE HIP FLEXOR'S, HS'S AND GASTROC SOLEUS COMPLEX'S ARE VERY TIGHT. Reflexes: NT. Dural Signs: NEGATIVE LUISA LE'S. Lumbar mvmt loss: flex - MIN TO MODERATE. PATIENT ABLE TO ALMOST TOUCH HIS TOES WITH A COMBINATION OF BENDING IN HIS BACK AND KNEES. ext - MICHELLE. R SG - MICHELLE. L SG - MICHELLE. Core strength: POOR. OTHER: PATIENT BROUGHT A BACK BRACE WITH HIM THAT IS NOT COMFORTABLE OR HELPING HIS PAIN. QUESTIONING IF A CUSTOM BRACE IS INDICATED. AFTER EVALUATION, THIS PT'S RECOMMENDATION IS TO FOLLOW UP WITH A BACK SURGEON TO ASSESS RESPONSE TO SURGERY AND CURRENT OPTIONS. PATIENT'S DAUGHTER REPORTS HER SISTER IS IN THE PROCESS OF GETTING INFORMATION FROM HIS SURGEON IN [place] AND SEEING ANOTHER SURGEON IS SOMETHING THEY HAVE BEEN TALKING ABOUT A FAMILY. THEY WILL CONSULT A SURGEON ABOUT A CUSTOM BACK BRACE AND WILL CONSIDER RETURN TO PT IF ORDERED AFTER SEEING SURGEON. THIS PT ALSO MADE PATIENT AWARE OF OUR PARKINSON'S PROGRAM AND HOW WE MAY BE ABLE TO WORK WITH HIM FOR HIS PARKINSON'S DISEASE AND BACK PAIN IF NEEDED. - Goals Goal 1:: SUCCESSFUL COMPLETION OF PT EVALUATION Goal Time Frame: 1 VISIT - Anticipated Interventions Thank you for the opportunity to evaluate your patient. For Medicare and Medicare HMO plans, please review the plan of care and approve it. It will need to be FAXED BACK to us at [phone] for Medicare purposes. For Medicare only, by signing this I certify the plan of care. Please let me know if there are questions or concerns regarding this plan of care. Physician Signature: Date:
== END 2020-09-15 19:00 | disposition home or self-care (01) ==
LOC: PT 07:50
PROVIDERS: PCP Nurse Practitioner Family; Referring Provider Psychiatry & Neurology Neurology; Visit Provider Psychiatry & Neurology Neurology
DX: M54.9 Dorsalgia, unspecified (principal); G20 Parkinson's disease
CPT/HCPCS: 97162

== ENCOUNTER → 2021-03-01 13:28 | Outpatient (CLI) | payer MEDICARE, OTHER, SELFPAY ==
--- NOTE | 2021-03-01 13:28 | MRI_ITS ---
STUDY: MR Spine Lumbar W/O Contrast 03/01/2021 3:32 PM REASON FOR EXAM: Male, 80 years old. Back pain Chronic back pain -- Hx of surgery October 2012, prostate CA TECHNIQUE: MR Spine Lumbar W/O Contrast Standardized fat and water weighted pulse sequences were obtained. COMPARISON: 02/21/2021 plain film FINDINGS: T12-L1: Normal endplates. Normal disc height, hydration and morphology. Normal bilateral facet joints. Normal central canal and bilateral lateral recesses. Normal bilateral intervertebral neural foramina. Normal lumbar lordosis. There is a levoscoliosis of the lumbar spine. Total right hip arthroplasty. Normal conus medullaris that terminates at the L1. L1-2: Loss of intervertebral disc height. There is endplate spondylosis of the vertebral body. Normal central canal and intervertebral neuroforamina. There is bilateral facet arthropathy. There is bilateral ligamentum flavum thickening. L2-3: Loss of intervertebral disc height. There is endplate spondylosis of the vertebral body. There is bilateral ligamentum flavum thickening. Bilateral neural foraminal stenosis. There is bilateral facet arthropathy. Compression of exiting nerve roots. There is bilateral ligamentum flavum thickening. L3-4: Loss of intervertebral disc height. There is endplate spondylosis of the vertebral body. Right neural foraminal stenosis. Minimal compression of exiting right L3 nerve root.There is bilateral ligamentum flavum thickening. No spinal stenosis. There is bilateral facet arthropathy. L4-5: Loss of intervertebral disc height. There is endplate spondylosis of the vertebral body. Right neural foraminal stenosis. Minimal compression of exiting right L4 nerve root. Minimal central disc herniation. No spinal stenosis. There is bilateral facet arthropathy. L5-S1: Loss of intervertebral disc height. There is endplate spondylosis of the vertebral body. There is bilateral facet arthropathy. Disc spacer in place. Anterior fusion device noted. Pedicle screws noted. 7.6 mm grade 1 anterolisthesis of L5 on S1. Severe bilateral neural foraminal stenosis. Resident exiting bilateral L5 nerve roots. There are bilateral pars articularis defects at L5-S1. There is a Grade 1 anterolisthesis of L5 on S1. Normal visualized sacral ala. Normal visualized paraspinous soft tissue structures. MRI/Spine Lumbar (Routine) IMPRESSION: Multilevel degenerative changes, as described above. L4-5 and L3-4 with right neural foraminal stenosis. L2-3 and L5-S1: bilateral neural foraminal stenosis. L4-5 demonstrates a minimal disc herniation. There is a Grade 1 anterolisthesis of L5 on S1. Electronically Signed: Janes Benson MD at 15:39 EST , Service support ,
== END ==
PROVIDERS: PCP Nurse Practitioner Family; Referring Provider Orthopaedic Surgery; Visit Provider Orthopaedic Surgery
DX: Z98.890 Other specified postprocedural states (principal)
CPT/HCPCS: 72148

== ENCOUNTER → 2021-09-29 | Outpatient (CLI) | payer MEDICARE, OTHER, SELFPAY ==
[2021-09-29 10:55] LABS: PSA,Total- Diagnostic 0.02 ng/mL (0.0-4.0)
== END | disposition home or self-care (01) ==
PROVIDERS: PCP Nurse Practitioner Family; Referring Provider Urology; Visit Provider Urology
DX: C61 Malignant neoplasm of prostate (principal)
CPT/HCPCS: 36415; 84153

== ENCOUNTER → 2021-12-23 | Outpatient (CLI) | payer MEDICARE, OTHER, SELFPAY ==
[2021-12-23 14:26] LABS: Vitamin B12 703 pg/mL (211-911)
[2021-12-28 04:07] LABS: Albumin 3.8 g/dL (2.9-4.4); Alpha-1-Globulins 0.2 g/dL (0.0-0.4); Alpha-2-Globulins 0.8 g/dL (0.4-1.0); Gamma Globulin 0.8 g/dL (0.4-1.8); Immunoglobulin G 801 mg/dL (603-1613); Immunoglobulin M 29 mg/dL (15-143); PROEL- TOTAL PROTEIN 6.5 g/dL (6.0-8.5); PROELU- Albumin, Urine 27.4 % (.); PROELU- Alpha-1-Globulin,Ur 3.1 % (.); PROELU- Alpha-2-Globulin,Ur 20.4 % (.); PROELU- Beta Globulin, Ur 29.1 % (.); PROELU- Gamma Globulin, Ur 20.1 % (.); Total Protein, Ur 32.8 mg/dL (Not Estab.)
[2021-12-28 08:55] LABS: Arsenic 7245 3 ug/L (0-9); Immunoglobulin A 41 mg/dL (61-437); Lead, Blood 1 ug/dL (0-4)
[2021-12-28 08:56] LABS: Mercury, Blood 85324 < 1.0 ug/L (0.0-14.9)
== END | disposition home or self-care (01) ==
PROVIDERS: PCP Nurse Practitioner Family; Visit Provider Psychiatry & Neurology Neurology
DX: G60.9 Hereditary and idiopathic neuropathy, unspecified (principal)
CPT/HCPCS: 36415; 82175; 82607; 82784; 83655; 83825; 84165; 84166; 86334

== ENCOUNTER 2022-06-15 12:13 | Inpatient (IN) | payer MEDICARE, OTHER, SELFPAY ==
[2022-06-15] VITALS (19 sets, daily range): BP systolic 117–187; BP diastolic 55–91; PULSE 23–78; RESP 7–32; TEMP 36.1–36.9; O2SAT 92–100; BMI 22.7
--- NOTE | 2022-06-15 12:46 | EKG12_ITS ---
Test Reason : LOW HR Blood Pressure : / mmHG Vent. Rate : 029 BPM Atrial Rate : 032 BPM P-R Int : 000 ms QRS Dur : 130 ms QT Int : 656 ms P-R-T Axes : 000 -78 084 degrees QTc Int : 455 ms Marked sinus bradycardia with A-V dissociation and Idioventricular rhythm Left axis deviation Right bundle branch block Abnormal ECG Confirmed by KURTIS LEOS, ARIAN ([id number]), make up editor MANAV RIOS ([id number]) on 06/19/2022 10:49:59 AM Referred By: Confirmed By:AIDEN HULL MD
--- NOTE | 2022-06-15 12:47 | EDS_ITS ---
HPI History of Present Illness Chief Complaint: Chest Other Detail of Chief Complaint: Bradycardia with syncope. Informant: patient Onset/Context/Timing Onset: Today Activity at onset: sudden Timing: Continuous Narrative Narrative: 82-year-old male currently on hospice due to Parkinson's disease. He has no cardiac history. Today had a syncopal episode at [facility] and had a heart rate in the 30s so they referred him to the emergency department. He and family wanted revoke hospice if he needs a pacemaker. He does not want CPR or to be placed on a ventilator. He denies any chest pain or shortness of breath. Denies any recent illness. He was hospitalized in March at [facility]. Prior Similar Symptoms: No Recent Illness/Hospitalization: Yes CVD Risk Factors: Negative for Diabetes or Smoking PE Risk Factors: Positive for Recent Immobilization; Negative for Recent Travel/Surgery, Prior DVT or PE, Cancer or OCP + Smoking + >/=35 TAD Risk Factors: Negative for Marfan's Syndrome [facility] Medical History Fusion of lumbar spine Home Medications ascorbic acid (vitamin C) 1,000 mg tablet (Vitamin C) 2,000 mg PO DAILY SUPPLEMENT 09/06/17 [History Last Taken Unknown] carbidopa 25 mg-levodopa 100 mg tablet 2 tab PO TIDAC PARKINSONS 09/06/17 [History Last Taken 09/12/17 06:00] cholecalciferol (vitamin D3) 125 mcg (5,000 unit) capsule 5,000 unit PO DAILY SUPPLEMENT 09/06/17 [History Last Taken Unknown] coenzyme Q10 100 mg capsule (Co Q-10) 100 mg PO DAILY SUPPLEMENT 09/06/17 [History Last Taken Unknown] magnesium 250 mg tablet 300 mg PO DAILY SUPPLEMENT 09/06/17 [History Last Taken Unknown] omega-3 fatty acids-fish oil 340 mg-1,000 mg capsule (Fish Oil) 1 ea PO DAILY SUPPLEMENT 09/06/17 [History Last Taken Unknown] phytonadione (vitamin K1) 100 mcg tablet 500 mcg PO DAILY SUPPLEMENT 09/06/17 [History Last Taken Unknown] vitamin A 2,400 mcg capsule 5,000 unit PO DAILY SUPPLEMENT 09/06/17 [History Last Taken Unknown] ropinirole 2 mg tablet 2 mg PO TID 02/21/21 [History Last Taken Unknown] Allergy/AdvReac Type Severity Reaction Status Date / Time No Known Allergies Allergy Verified 06/15/22 12:23 Surgical History H/O prostatectomy History of hip replacement Social History Smoking Status: Never smoker ROS ROS ED ROS Narrative Denies recent illness. Review of Systems ROS Unobtainable: Denies due to encephalopathy Constitutional Constitutional ED: Denies chills or fever(s) Eyes Eyes: Reports none ENT ENT ED: Denies ear pain Cardiovascular Cardiovascular: Denies as per HPI, chest pain, palpitations or racing heartbeat Respiratory/Chest Respiratory/Chest: Denies cough or dyspnea Gastrointestinal Gastrointestinal: Denies abdominal pain Genitourinary Genitourinary ED: Denies dysuria or hematuria Musculoskeletal Musculoskeletal: Denies arthralgias Integumentary Denies abscess or Abrasions Neurologic Neurologic: Denies headache(s) Psychiatric Psychiatric: Denies anxiety or depression Endocrine Endocrinology: Denies cold intolerance Hematologic/Lymphatic Hematologic/Lymphatic: Denies easy bleeding Allergic/Immunologic Allergic/Immunologic ED: Denies mouth swelling EXAM Physical Exam Narrative Exam Narrative: 82-year-old male vital signs are stable except his heart rates around 30. However with that his blood pressure is 117/74. Pulse ox 97% on room air no hypoxia. He is sitting upright in bed. Answering questions following commands. Both and daughter at bedside. H EENT exam unremarkable. Atraumatic. Moist with membranes. Neck nontender. No lymphadenopathy. Lungs clear to auscultation bilaterally. Heart bradycardic rate about 30 no murmur. Chest wall nontender. Abdomen soft nontender. Moving all 4 extremities. Calves are nontender without edema or cords. Back nontender. Neurologically is awake alert. Answering questions and following commands. Const Vital Signs: 06/15/22 12:14 06/15/22 12:24 06/15/22 12:25 Temperature 98 F Temperature Source Temporal Pulse Rate 30 L 28 L 27 L Respiratory Rate 10 L 17 Respiratory Effort Blood Pressure 117/74 Blood Pressure Mean 88 Pulse Ox 97 92 Oxygen Delivery Method Room Air Room Air 06/15/22 12:27 06/15/22 12:53 06/15/22 13:05 Temperature Temperature Source Pulse Rate 24 L Respiratory Rate 24 H Respiratory Effort Normal Non-Labored Blood Pressure 121/85 H Blood Pressure Mean 97 Pulse Ox 99 99 Oxygen Delivery Method Room Air Room Air Positive well nourished and well developed; Negative for obese, cachectic, contractures or unkempt General Appearance ED: well developed; Negative for unkempt, cachectic, contractures, NAD or pallor Nutritional Appearance: Negative for cachectic or obese HEENT Reports moist mucous membranes normocephalic and atraumatic; Negative for trauma or tenderness Eyes PERRL and EOMs intact bilaterally General Eye ED: Negative for pale conjunctiva or scleral icterus Neck no lymphadenopathy, supple and no JVD General: Negative for tenderness Chest Wall inspection of chest normal and palpation of chest normal Chest: Negative for tenderness Resp normal respiratory effort and clear to auscultation bilaterally Effort and Inspection: Negative for respiratory distress Auscultation: Negative for rales, rhonchi or wheezes Cardio S1 normal heart sound, S2 normal heart sound and no murmurs; Negative for regular rate Rate: Negative for bradycardia or tachycardic Peripheral Pulses: pulses 2+ throughout GI normal to inspection, nondistended, normoactive bowel sounds, soft to palpation, non-tender, non-distended and no masses Auscultation: Negative for hyperactive bowel sounds Palpation: Negative for splenomegaly Back/Spine no CVA tenderness and no thoracic nor lumbar tenderness General Back: Negative for CVA tenderness Cervical Spine: Negative for cervical spine tenderness Extremity normal to inspection General Extremety ED: Negative for edema, pulses abnormal or tenderness General Extremity: Negative for edema or pulses abnormal Neuro oriented x3 and CN's II-XII intact bilaterally Sensorium / Orientation: awake, alert, oriented to person, oriented to place and oriented to time; Negative for confused or lethargic Motor Exam: strength 5/5 throughout Psych mental status grossly normal Appearance: Negative for unkempt Attitude: No agitated Mood & Affect: Negative for depressed, anxious or tearful Skin no rashes or lesions noted and no wounds General Skin Exam: Negative for jaundice or pallor Trauma: Negative for abrasion MDM MDM MDM Narrative Medical decision making narrative: 82-year-old male severe bradycardia. Had a syncopal episode today. He and family want him to be evaluated for a pacemaker. Will undergo cardiac work-up. We will see if we can find the cause of his bradycardia. Repeat exam patient doing well at 1:45 PM. Remains bradycardic but normotens kurt. I went over the labs with the patient the family is not in the room at this time. His EKG appears to be a third-degree heart block. I am paging cardiology discussed with them pacemaker versus other treatment options. I spoke to cardiology patient will be admitted for possible pacemaker placement tomorrow. I spoke to patient and family. If you would get significantly worse they do not want CPR, intubation or cardioversion. History & Record Review Discussion w/independent historian: Patient and Family Lab Data Attestation: I reviewed the patient's lab results. Lab results narrative: CBC shows a white count of 5.9. H&H 12.3 and 35. Platelets 207. PT/INR 13 and 1. Electrolytes show potassium of 4.4. Gap is 7. BUN of 38 and creatinine 1.56. Glucose 120. Troponin normal at 58. TSH normal at 1.96. EKG shows third- degree heart block. Labs: Laboratory Results - last 24 hr 06/15/22 06/15/22 06/15/22 13:00 13:00 13:00 WBC 5.9 RBC 3.56 L Hgb 12.3 L Hct 35.9 L MCV 100.8 H MCH 34.6 H MCHC 34.3 RDW Std Deviation 49.1 H RDW Coeff of Miguel Ángel 13.1 Plt Count 207 MPV 9.7 Immature Gran % (Auto) 0.300 Neut % (Auto) 78.0 H Lymph % (Auto) 13.9 L Rankin % (Auto) 6.8 Eos % (Auto) 0.5 Baso % (Auto) 0.5 Absolute Neuts (auto) 4.6 Absolute Lymphs (auto) 0.82 L Nucleated RBC % 0 PT 13.1 INR 1.0 Sodium 141 Potassium 4.4 Chloride 108 H Carbon Dioxide 26.0 Anion Gap 7 BUN 38 H Creatinine 1.56 H Estim Creat Clear Calc 38.41 Est GFR (MDRD) Af Amer 55 L Est GFR (MDRD) Non-Af 46 L BUN/Creatinine Ratio 24.4 H Glucose 120 H Calcium 9.4 Troponin I High Sens 58 TSH 1.96 Radiography Chest X-Ray - ED: 1 View, Read by ED Physician, Read by Radiologist, Normal, Heart, Lungs, Mediastinum, Bony Structures, No Acute Disease and Chronic Changes Diagnostic Testing: Clinical Impression(s) from Imaging Studies Chest X-Ray 06/15/22 13:04 IMPRESSION: Hyperinflation. The lungs are clear. Electronically Signed: Nikolas Shabazz MD at 13:29 EDT , Chest x-ray, portable view, interpreted both by myself and radiologist shows no acute abnormality. Normal cardiac silhouette. Normal lung villa. Rhythm Strip Rhythm Strip: Third-degree heart block Rate: 29 Ectopy: None EKG Initial EKG: Attestation: I personally reviewed and interpreted this EKG as follows: Interpretation: No Acute Injury Pattern and AV Block Comments: Third-degree AV block rate of 29. No acute signs of MA or ischemia. Discharge Plan Triage Chief Complaint: Chest Other ED Provider: Yoni Fletcher Dx/Rx/DC Orders Clinical Impression: Bradycardia, Syncope, Third degree heart block, History of Parkinson's disease, DNR (do not resuscitate) Prescriptions: No Action ropinirole 2 mg tablet 2 mg PO TID ascorbic acid (vitamin C) [Vitamin C] 1,000 MG tablet 2,000 mg PO DAILY vitamin A 8,000 UNIT capsule 5,000 unit PO DAILY phytonadione (vitamin K1) 100 MCG tablet 500 mcg PO DAILY magnesium 250 MG tablet 300 mg PO DAILY carbidopa-levodopa 1 TABLET tablet 2 tab PO TIDAC cholecalciferol (vitamin D3) 5,000 UNIT capsule 5,000 unit PO DAILY coenzyme Q10 [Co Q-10] 100 MG capsule 100 mg PO DAILY omega-3 fatty acids-fish oil [Fish Oil] 1 EACH capsule 1 ea PO DAILY Primary Care Provider: Miranda Eagle Referrals: Miranda Eagle, ANIMAL CARE SUPERVISOR-C [Primary Care Provider] - Disposition Disposition: [facility]
--- NOTE | 2022-06-15 13:04 | RAD_ITS ---
STUDY: X-RAY CHEST REASON FOR EXAM: Male, 82 years old. Chest pain TECHNIQUE: Single AP portable view of the chest. COMPARISON: None. FINDINGS: EKG electrodes are seen. Hyperinflation. The lungs are clear. There is no demonstrated pleural abnormality. Normal size heart. Normal mediastinum and kalpesh. Normal visualized pulmonary arteries. There is atherosclerotic tortuosity of the aortic arch and descending thoracic aorta. There are diffuse degenerative changes of the visualized thoracic spine. Dextroscoliosis. Normal visualized ribs, clavicles, and shoulders. There is no demonstrated abnormality of the visualized soft tissue structures of the upper abdomen. RAD/Chest 1 View (Portable) IMPRESSION: Hyperinflation. The lungs are clear. Electronically Signed: Nikolas Shabazz MD at 13:29 EDT ,
[2022-06-15 13:13] LABS: Absolute Lymphocyte Count 0.82 X10^3/uL (0.83-4.51); Absolute Neutrophil Count 4.6 X10^3/uL (2.0-7.7); Basophil# 0.03 X10^3/uL; Basophil% 0.5 % (0-1); Eosinophil# 0.03 X10^3/uL; Eosinophils% 0.5 % (0-5); Hematocrit 35.9 % (40-54); Hemoglobin 12.3 g/dL (13.0-16.5); Lymphocyte # 0.82 X10^3/ul (0.83-4.51); Lymphocyte % 13.9 % (19-41); Mean Corp Hgb Conc 34.3 g/dL (32-36); Mean Corpuscular Hgb 34.6 pg (27.0-32.0); Mean Corpuscular Volume 100.8 fL (80-94); Mean Platelet Vol. 9.7 fl (6.2-12.0); Monocyte% 6.8 % (0-10); NRBC Flagged by Analyzer 0 % (0-5); Neutrophil # 4.58 X10^3/uL (2.7-7.7); Platelet Count 207 K/mm3 (150-450); RBC Distribution Width CV 13.1 % (11.6-14.6); RBC Distribution Width SD 49.1 fl (35.1-43.9); Red Blood Count 3.56 M/mm3 (4.6-6.2); White Blood Count 5.9 K/mm3 (4.4-11.0)
[2022-06-15 13:18] LABS: Prothrombin Time (Protime)PT. 13.1 SECONDS (11.7-14.9)
[2022-06-15 13:27] LABS: Anion Gap 7 (5-15); BUN 38 mg/dL (7-18); BUN/Creat Ratio 24.4 RATIO (10-20); Calcium,Total 9.4 mg/dL (8.5-10.1); Chloride 108 mmol/L (98-107); Creatinine, Serum 1.56 mg/dL (0.70-1.30); EST Glomerular Filtration Rate 46 mL/min (>60); Est Glom Filt Rate - Afr Amer 55 mL/min (>60); Estimated Creatinine Clearance 38.41 ml/min; Glucose 120 mg/dL (74-106); Potassium 4.4 mmol/L (3.5-5.1); Sodium Level 141 mmol/L (136-145); Thyroid Stim Hormone (TSH) 1.96 uIU/mL (0.358-3.74); Troponin-I HS 58 pg/mL (3.0-78.0)
[2022-06-15] MEDS: Atropine Sulfate 1 MG/10 ML Syringe IV (14:01)
--- NOTE | 2022-06-15 15:06 | ECHOL_ITS ---
Reason For Study: NEAR SYNCOPE Procedure This was a limited 2D transthoracic echocardiogram. Exam performed portable in ED. Left Ventricle Normal LV size. Left ventricular systolic function is normal. The estimated ejection fraction is 60 %. No regional wall motion abnormalities noted. Right Ventricle Normal RV size. Normal systolic function. Atria Normal left atrium. Normal right atrium. Mitral Valve Normal mitral valve. Tricuspid Valve Normal tricuspid valve. Mild to moderate (1-2+) tricuspid valve insufficiency. Pulmonary artery systolic pressure is 49 mmHg. Aortic Valve Trisinus/trileaflet aortic valve. Mild to moderate aortic stenosis. Peak aortic valve gradient 39 mmHg. Mean aortic valve gradient 16 mmHg. Pulmonic Valve Normal pulmonic valve. Great Vessels Normal aortic root. The pulmonary artery is normal size. Normal inferior vena cava. Pericardium/Pleural No pericardial effusion. MMode/2D Measurements & Calculations LVIDd: 5.3 cm IVSd: 0.98 cm LVOT diam: 2.0 cm LVIDs: 3.1 cm LVPWd: 0.95 cm LVOT area: 3.2 cm2 FS: 42.0 % LVAd ap4: 35.8 cm2 SV(MOD-sp4): 81.6 ml SV(sp4-el): 89.5 ml LVLd ap4: 8.7 cm EDV(MOD-sp4): 118.2 ml EDV(sp4-el): 125.0 ml LVAs ap4: 16.8 cm2 LVLs ap4: 6.7 cm ESV(MOD-sp4): 36.6 ml ESV(sp4-el): 35.5 ml EF(MOD-sp4): 69.0 % EF(sp4-el): 71.6 % Doppler Measurements & Calculations Ao V2 max: 313.4 cm/sec LV V1 max: 121.2 cm/sec SV(LVOT): 101.4 ml Ao max P.3 mmHg LV V1 max P.9 mmHg Ao V2 mean: 184.2 cm/sec LV V1 mean P.0 mmHg Ao mean P.5 mmHg LV V1 mean: 80.3 cm/sec Ao V2 VTI: 69.4 cm LV V1 VTI: 31.8 cm AV (velocity ratio): 0.46 ROBIN(I,D): 1.5 cm2 ROBIN(V,D): 1.2 cm2 TR max kylee: 333.7 cm/sec TR max P.5 mmHg ECHO/Echo, Limited Study Interpretation Summary Normal LV size. Left ventricular systolic function is normal. The estimated ejection fraction is 60 %. Pulmonary artery systolic pressure is 49 mmHg. Peak aortic valve gradient 39 mmHg. Mild to moderate aortic stenosis. Mean aortic valve gradient 16 mmHg. Ordering Physician: Von Malik MD Referring Physician: ZA [facility] Performed By: Melody Bustillos RDCS
--- NOTE | 2022-06-15 15:07 | PCM.CONS.C ---
Assessment & Plan Assessment/Plan (1) Third degree heart block: PLAN: Patient is noted to have third-degree heart block. My recommendation at this time is for him to undergo permanent pacemaker implantation. The risk benefits alternatives have been explained to him and his and daughter they understand and agree to proceed. This will be arranged as soon as possible. HPI Consult Data Date of Consult: 06/15/22 HPI Narrative HPI Narrative: CONNOR GU, is a 82 M who presents to the emergency room due to transient dizziness and near syncope. He had been in his usual state of health with a history of Parkinson's disease and denying any chest pain or shortness of breath or paroxysmal nocturnal dyspnea. He apparently had an episode of near syncope today and it was felt the history brought to the emergency room. It is not entirely clear why he is a DNR at this particular time but he has not had any previous cardiac issues. In the emergency room he was noted to be with a slow heart rate but decent blood pressure. Cardiology was called for further evaluation and management. [facility] Medical History Fusion of lumbar spine Home Medications ascorbic acid (vitamin C) 1,000 mg tablet (Vitamin C) 2,000 mg PO DAILY SUPPLEMENT 09/06/17 [History Last Taken Unknown] carbidopa 25 mg-levodopa 100 mg tablet 2 tab PO TIDAC PARKINSONS 09/06/17 [History Last Taken 09/12/17 06:00] cholecalciferol (vitamin D3) 125 mcg (5,000 unit) capsule 5,000 unit PO DAILY SUPPLEMENT 09/06/17 [History Last Taken Unknown] coenzyme Q10 100 mg capsule (Co Q-10) 100 mg PO DAILY SUPPLEMENT 09/06/17 [History Last Taken Unknown] magnesium 250 mg tablet 300 mg PO DAILY SUPPLEMENT 09/06/17 [History Last Taken Unknown] omega-3 fatty acids-fish oil 340 mg-1,000 mg capsule (Fish Oil) 1 ea PO DAILY SUPPLEMENT 09/06/17 [History Last Taken Unknown] phytonadione (vitamin K1) 100 mcg tablet 500 mcg PO DAILY SUPPLEMENT 09/06/17 [History Last Taken Unknown] vitamin A 2,400 mcg capsule 5,000 unit PO DAILY SUPPLEMENT 09/06/17 [History Last Taken Unknown] ropinirole 2 mg tablet 2 mg PO TID 02/21/21 [History Last Taken Unknown] lisinopril 10 mg tablet 10 mg PO DAILY 06/15/22 [History Last Taken Unknown] trazodone 50 mg tablet 25 mg PO DAILY 06/15/22 [History Last Taken Unknown] Allergy/AdvReac Type Severity Reaction Status Date / Time No Known Allergies Allergy Verified 06/15/22 12:23 Surgical History H/O prostatectomy History of hip replacement Social History Smoking Status: Never smoker ROS Constitutional Constitutional: Denies fever(s) or weight loss Eyes Eyes: Reports systems reviewed and no addt'l complaints, except as documented ENT HEENT: Reports systems reviewed and no addt'l complaints, except as documented Cardiovascular Cardiovascular: Denies chest pain at rest, chest pain with activity, dyspnea at rest, dyspnea on exertion, edema, palpitations or paroxysmal nocturnal dyspnea Respiratory/Chest Respiratory/Chest: Denies dyspnea on exertion, productive cough, shortness of breath at rest or shortness of breath with exertion Gastrointestinal Gastrointestinal: Denies change in bowel habits, nausea, vomiting or weight changes Genitourinary Genitourinary: Denies difficulty urinating Musculoskeletal Musculoskeletal: Denies joint stiffness or muscle weakness Integumentary Integumentary: Denies lesions Neurologic Neurologic: Reports dizziness; Denies syncope Psychiatric Psychiatric: Denies anxiety Endocrine Endocrinology: Denies excessive sweating or fatigue Hematologic/Lymphatic Hematologic/Lymphatic: Denies anemia Allergic/Immunologic Allergic/Immunologic: Denies seasonal rhinorrhea Physical Exam Const alert, oriented x3 and no apparent distress General Appearance: cooperative HEENT hearing grossly normal bilaterally Head and Scalp: atraumatic Eyes EOMs intact bilaterally Neck General: normal visual inspection Chest inspection of chest normal and palpation of chest normal Resp normal respiratory effort Auscultation: clear to auscultation bilaterally Cardio regular rate, regular rhythm, S1 normal heart sound and S2 normal heart sound Jugular Venous Distention: JVD GI normal to inspection, nondistended, normoactive bowel sounds Extremity normal capillary refill and no pedal edema Peripheral Pulses: Yes pulses 2+ throughout and femoral pulses present Skin no rashes or lesions noted Neuro oriented x3 and CN's II-XII intact bilaterally Psych Appearance: grossly normal and appropriate Risk Stratification Risk Stratification Applicable: No Objective Data Vital Signs: Vital Signs Temp Pulse Resp BP Pulse Ox O2 Del Method 97 F L 23 L 13 129/55 H 99 Room Air 06/15/22 14:14 06/15/22 14:45 06/15/22 14:45 06/15/22 14:14 06/15/22 14:45 06/15/22 14:45 Oxygen Delivery Method Room Air Weight: 158 lb 8.198 oz Body Mass Index (BMI) 22.7 Lab / Micro Data Result Diagrams: 06/15/22 13:00 06/15/22 13:00 Labs: Laboratory Results - last 24 hr 06/15/22 13:00: WBC 5.9, RBC 3.56 L, Hgb 12.3 L, Hct 35.9 L, MCV 100.8 H, MCH 34.6 H, MCHC 34.3, RDW Std Deviation 49.1 H, RDW Coeff of Miguel Ángel 13.1, Plt Count 207, MPV 9.7, Immature Gran % (Auto) 0.300, Neut % (Auto) 78.0 H, Lymph % (Auto) 13.9 L, [place] % (Auto) 6.8, Eos % (Auto) 0.5, Baso % (Auto) 0.5, Absolute Neuts (auto) 4.6, Absolute Lymphs (auto) 0.82 L, Nucleated RBC % 0 06/15/22 13:00: PT 13.1, INR 1.0 06/15/22 13:00: Sodium 141, Potassium 4.4, Chloride 108 H, Carbon Dioxide 26.0, Anion Gap 7, BUN 38 H, Creatinine 1.56 H, Estim Creat Clear Calc 38.41, Est GFR (MDRD) Af Amer 55 L, Est GFR (MDRD) Non-Af 46 L, BUN/Creatinine Ratio 24.4 H, Glucose 120 H, Calcium 9.4, Troponin I High Sens 58, TSH 1.96 Rhythm Strip Rhythm Strip: Third-degree heart block Rate: 29 Ectopy: None Cardiology Labs/Tests 06/15/22 13:00: WBC 5.9, RBC 3.56 L, Hgb 12.3 L, Hct 35.9 L, MCV 100.8 H, MCH 34.6 H, MCHC 34.3, Plt Count 207, MPV 9.7, Immature Gran % (Auto) 0.300, Neut % (Auto) 78.0 H, Lymph % (Auto) 13.9 L, [place] % (Auto) 6.8, Eos % (Auto) 0.5, Baso % (Auto) 0.5, Absolute Neuts (auto) 4.6, Nucleated RBC % 0 06/15/22 13:00: PT 13.1, INR 1.0 06/15/22 13:00: Sodium 141, Potassium 4.4, Chloride 108 H, Carbon Dioxide 26.0, Anion Gap 7, BUN 38 H, Creatinine 1.56 H, Est GFR (MDRD) Af Amer 55 L, Est GFR (MDRD) Non-Af 46 L, BUN/Creatinine Ratio 24.4 H, Glucose 120 H, Calcium 9.4 Rhythm: EKG: ECHO: Stress Test: Cardiac Cath: PCI: CT Surgery: Holter monitor: EPS: PPM: CXR: Chest CT Scan: Radiography Diagnostic Testing: Radiology Impression Chest X-Ray 06/15/22 13:04 IMPRESSION: Hyperinflation. The lungs are clear. Electronically Signed: Nikolas Shabazz MD at 13:29 EDT ,
--- NOTE | 2022-06-15 15:18 | HP.PCM.HOS_ITS ---
HPI - General General Date of Admission: 06/15/22 Date of Service: 06/15/22 Chief Complaint: syncope HPI Narrative CONNOR GU, is a 82 M who presents with syncopal event. Patient was noted to have heart rate in 30s. The patient had been enrolled in hospice due to his Parkinson's but, according to family, patient does have a decent quality of life and is awake and alert and interactive though limited due to his Parkinson's disease. They revoked hospice and sent the patient to the emergency room. In the emergency room, patient's heart rate is in the 20s to 30s and patient was in third-degree heart block. Patient did receive one-time dose of atropine which had no effect on his heart rate. Patient has remained awake and alert during encounters. Discussed with Dr. Malik, of cardiology, who will be taking the patient to get a pacemaker today. The family wants to proceed with getting a pacemaker so the patient can have a quality of life despite the ongoing regressions associated with Parkinson's disease. [facility] Medical History Fusion of lumbar spine Home Medications ascorbic acid (vitamin C) 1,000 mg tablet (Vitamin C) 2,000 mg PO DAILY SUPPLEMENT 09/06/17 [History Last Taken Unknown] carbidopa 25 mg-levodopa 100 mg tablet 2 tab PO TIDAC PARKINSONS 09/06/17 [H istory Last Taken 09/12/17 06:00] cholecalciferol (vitamin D3) 125 mcg (5,000 unit) capsule 5,000 unit PO DAILY SUPPLEMENT 09/06/17 [History Last Taken Unknown] coenzyme Q10 100 mg capsule (Co Q-10) 100 mg PO DAILY SUPPLEMENT 09/06/17 [History Last Taken Unknown] magnesium 250 mg tablet 300 mg PO DAILY SUPPLEMENT 09/06/17 [History Last Taken Unknown] omega-3 fatty acids-fish oil 340 mg-1,000 mg capsule (Fish Oil) 1 ea PO DAILY SUPPLEMENT 09/06/17 [History Last Taken Unknown] phytonadione (vitamin K1) 100 mcg tablet 500 mcg PO DAILY SUPPLEMENT 09/06/17 [History Last Taken Unknown] vitamin A 2,400 mcg capsule 5,000 unit PO DAILY SUPPLEMENT 09/06/17 [History Last Taken Unknown] ropinirole 2 mg tablet 2 mg PO TID 02/21/21 [History Last Taken Unknown] lisinopril 10 mg tablet 10 mg PO DAILY 06/15/22 [History Last Taken Unknown] trazodone 50 mg tablet 25 mg PO DAILY 06/15/22 [History Last Taken Unknown] Allergy/AdvReac Type Severity Reaction Status Date / Time No Known Allergies Allergy Verified 06/15/22 12:23 Surgical History H/O prostatectomy History of hip replacement Social History Smoking Status: Never smoker ROS ROS Narrative Limited due to Parkinson's disease but has never had any cardiac conditions. No chest pain. No shortness of breath. All review of systems were negative except as mentioned above in the history of present illness and the other review of systems. Vital Signs Vital Signs Vital Signs: 06/15/22 12:14 06/15/22 12:24 06/15/22 12:25 Temperature 36.6 C Temperature Source Temporal Pulse Rate 30 L 28 L 27 L Respiratory Rate 10 L 17 Respiratory Effort Blood Pressure 117/74 Blood Pressure Mean 88 Pulse Ox 97 92 Oxygen Delivery Method Room Air Room Air 06/15/22 12:27 06/15/22 12:53 06/15/22 13:05 Temperature Temperature Source Pulse Rate 24 L Respiratory Rate 24 H Respiratory Effort Normal Non-Labored Blood Pressure 121/85 H Blood Pressure Mean 97 Pulse Ox 99 99 Oxygen Delivery Method Room Air Room Air 06/15/22 13:41 06/15/22 14:14 06/15/22 14:45 Temperature 36.1 C L Temperature Source Temporal Pulse Rate 24 L 23 L 23 L Respiratory Rate 7 L 32 H 13 Respiratory Effort Blood Pressure 121/85 H 129/55 H Blood Pressure Mean 97 79 Pulse Ox 100 97 99 Oxygen Delivery Method Room Air Room Air Weight Weight: 71.9 kg Body Mass Index (BMI) 22.7 Physical Exam Const alert and no apparent distress Constitutional Narrative: Weak voice and quires repeating things so they could understand better. Nont oxic. HEENT normocephalic and hearing grossly normal bilaterally Resp normal respiratory effort, no retractions, no use of accessory muscles and clear to auscultation bilaterally Cardio Cardio Narrative: Bradycardic, irregular GI normal to inspection, nondistended, normoactive bowel sounds, soft to palpation, non-tender, non-distended and hepatosplenomegaly Extremity normal to inspection and full ROM Extremity Narrative: Pulses are strong though bradycardic. Neuro moves all extremities and no focal motor deficits Psych affect normal Results Lab / Micro Data Attestation: I reviewed the patient's lab results. Result Diagrams: 06/15/22 13:00 06/15/22 13:00 Labs: Laboratory Results - last 24 hr 06/15/22 13:00: WBC 5.9, RBC 3.56 L, Hgb 12.3 L, Hct 35.9 L, MCV 100.8 H, MCH 34.6 H, MCHC 34.3, RDW Std Deviation 49.1 H, RDW Coeff of Miguel Ángel 13.1, Plt Count 207, MPV 9.7, Immature Gran % (Auto) 0.300, Neut % (Auto) 78.0 H, Lymph % (Auto) 13.9 L, [place] % (Auto) 6.8, Eos % (Auto) 0.5, Baso % (Auto) 0.5, Absolute Neuts (auto) 4.6, Absolute Lymphs (auto) 0.82 L, Nucleated RBC % 0 06/15/22 13:00: PT 13.1, INR 1.0 06/15/22 13:00: Sodium 141, Potassium 4.4, Chloride 108 H, Carbon Dioxide 26.0, Anion Gap 7, BUN 38 H, Creatinine 1.56 H, Estim Creat Clear Calc 38.41, Est GFR (MDRD) Af Amer 55 L, Est GFR (MDRD) Non-Af 46 L, BUN/Creatinine Ratio 24.4 H, Glucose 120 H, Calcium 9.4, Troponin I High Sens 58, TSH 1.96 Rhythm Strip Rhythm Strip: Third-degree heart block Rate: 29 Ectopy: None EKG Initial EKG: EKG Rhythm Intrepretation: 3rd Degree HB (Complete) Radiology Impression Chest X-Ray 06/15/22 13:04 IMPRESSION: Hyperinflation. The lungs are clear. Electronically Signed: Nikolas Shabazz MD at 13:29 EDT , Assessment & Plan Assessment/Plan (1) Third degree heart block: PLAN: No obvious medications or contributing to this. Patient was symptomatic in regards to the syncope. Discussed with Dr. Malik, we will take the patient to get a pacemaker today. (2) Syncope: PLAN: Secondary to above PLAN: Plan Chronic conditions * Parkinson disease: Continue with Sinemet RRR advance care planning: Spent an additional 30 minutes discussing with the patient and his family about CODE STATUS. Patient initially wanted to be DNR Comfort Care arrest no intubation. Discussed with him that that certainly his decision but the it would potentially limit us in regards to resuscitation if he were to be closely in the pacemaker and went to cardiac arrest. He is agreeable to being full code until the pacemaker can be placed and then revert back to his DNR Comfort Care arrest no intubation status. Eventual plan is for patient to return back to hospice. Patient has hospice services as he is progressively declining given his Parkinson's disease but is not in a terminal condition at this point time according to his family. It appears that his hospice services are more along the lines of palliative services.. Charges/Coding Visit Charges Inpatient E&M: 27437 Init Hosp L3 Procedures Hospitalists Procedures: 75417 Advncd Care Plan 30 Min
[2022-06-15] MEDS: 0.9% Normal Saline 1,000 ML 15 ML IV (15:41)
[2022-06-15 16:01] LABS: Bedside Glucose 103 mg/dL (74-106)
--- NOTE | 2022-06-15 17:45 | CL.IE_ITS ---
Patient: CONNOR GU Study Date: 06/15/2022 Performing: Von Malik MD : 1940 Age: 82 Gender: male PROCEDURES PERFORMED LP04-([id number])INITIAL PACER INSERT+DUAL LEADS INDICATIONS Syncope Complete heart block PROCEDURE DETAILS The patient was brought to the Catheterization Lab in the postabsorptive nonsedated state. Informed consent was obtained prior to the procedure. Temporary pacemaker external patches placed anterior / posterior chest, settings placed at 60 ppm., Temporary pacemaker external patches settings changed to 50 ppm, Temporary pacemaker external patches upper chest area with Lidocaine 2%. Access was achieved and a guidewire was advanced into the left subclavian vein. Incision was made to the left upper chest. PPM ventricular lead was inserted / positioned to right ventricular apex. PPM ventricular lead testing performed. PPM ventricular lead testing performed. PPM atrial lead was inserted / positioned to the right atrial appendage. PPM atrial lead testing performed. The Ventricular PM lead sutured in place with 2-0 Silk. The Atrial lead sutured in place with 2-0 Silk. Device pocket was irrigated with antibiotic, Ancef 1GM. PPM generator was attached to the lead(s) and inserted into the pocket. PPM generator was then interrogated by the c programmer. Subcutaneous closure was completed with 3-0 Vicryl. Skin closure was completed with 4-0 Vicryl. Steri-strips applied to Lt chest area. The patient tolerated the procedure well. Estimated Blood Loss: 10 ml's IMPLANTED / EX-PLANTED DEVICES IMPLANTED DEVICE(S): PPM Ventricular lead - Head Concierge: [employer], Model # [id number] , Serial # [id number] PPM Atrial lead - Head Concierge: [employer], Model # 2088TC , Serial # [id number] PPM Generator - Head Concierge: [employer], Model # [id number] , Serial # [id number] DEVICE PARAMETERS ATRIAL LEAD PARAMETERS: P wave- 3.2 (mV) threshold- 0.5 (V) impedence- 440 (OHMS) VENTRICULAR LEAD PARAMETERS: threshold- 1.0 (V) impedence- 600 (OHMS) DEVICE PARAMETERS: Mode- DDD Lower rate- 60 Upper rate- 120 CONCLUSIONS / RECOMMENDATIONS Device Conclusions: Successful implantation of a dual chamber pacemaker Device Recommendations: Follow up with Primary Care Physician PROCEDURE MEDICATIONS Oxygen: 2 L/min via nasal cannula Oxygen: 15 L/min via non-rebreather mask Ancef 2 Gm IV @ 06/15/2022 16:15:38 Signed By Von Malik MD On 06/15/2022 17:44:17 Von Malik MD
[2022-06-15] MEDS: 0.9% Normal Saline 1,000 ML 150 ML IV (18:59)
[2022-06-15] MEDS: LORazepam 0.5 MG Tablet PO (21:22)
[2022-06-15] MEDS: Pramipexole Di-HCl 1 MG Tablet PO (21:22)
[2022-06-15] MEDS: amLODIPine 10 MG Tablet PO (21:22)
[2022-06-15] MEDS: traZODone 50 MG Tablet 25 MG PO (21:22)
[2022-06-15] MEDS: oxyCODONE 5 MG Tablet PO (21:22)
[2022-06-15] MEDS: Carbidopa/Levodopa 25/100 Tablet PO (21:23)
[2022-06-15] MEDS: Senna Tablet 1 TABLET PO (21:23)
[2022-06-15] MEDS: 0.9% Saline Lock 10 ML Syringe IV (21:24)
[2022-06-15] MEDS: CARBIDOPA/LEVODOPA CR 50/200 Tablet PO (21:24)
[2022-06-16] VITALS (10 sets, daily range): BP systolic 101–183; BP diastolic 59–99; PULSE 64–88; RESP 12–18; TEMP 36.3–36.8; O2SAT 95–98
--- NOTE | 2022-06-16 05:55 | RAD_ITS ---
EXAM: XR CHEST, 1 VIEW CLINICAL INDICATION: Post permanant ICD/Pacemaker -- inspiration/expiration. Arms Down. Wet read to MD TECHNIQUE: Frontal view of the chest. This report was created using [employer] report generation technology. COMPARISON: 06/15/2022. FINDINGS: LUNGS AND PLEURAL SPACES: Calcified granuloma left lower lobe. Hyperinflation. No pneumothorax. No effusion. HEART: Unremarkable. Cardiac silhouette not enlarged. MEDIASTINUM: Central airways and mediastinal contour are unremarkable. BONES/JOINTS: Dextroscoliosis lower thoracic spine. SOFT TISSUES: Unremarkable. TUBES, LINES AND DEVICES: AV sequential pacemaker leads in good position. RAD/Chest 3 View IMPRESSION: 1. Calcified granuloma left lower lobe. 2. Hyperinflation. 3. AV sequential pacemaker leads in good position. 4. Dextroscoliosis lower thoracic spine. 5. No pneumothorax. Electronically Signed: Monty Jaquez MD at 5:12 EDT ,
[2022-06-16] MEDS: Pramipexole Di-HCl 1 MG Tablet PO ×2 (06:23→13:13)
[2022-06-16 06:57] LABS: Anion Gap 8 (5-15); BUN 31 mg/dL (7-18); BUN/Creat Ratio 23.3 RATIO (10-20); Calcium,Total 9.2 mg/dL (8.5-10.1); Chloride 109 mmol/L (98-107); Creatinine, Serum 1.33 mg/dL (0.70-1.30); EST Glomerular Filtration Rate 55 mL/min (>60); Est Glom Filt Rate - Afr Amer 67 mL/min (>60); Estimated Creatinine Clearance 45.05 ml/min; Glucose 109 mg/dL (74-106); Sodium Level 139 mmol/L (136-145)
[2022-06-16] MEDS: Carbidopa/Levodopa 25/100 Tablet PO ×3 (07:34→16:30)
--- NOTE | 2022-06-16 08:41 | PN.HOSP_ITS ---
Reason for Visit Reason for Visit: Diagnoses Atrioventricular block, complete (06/15/22) Syncope and collapse (06/15/22) Subjective Subjective Moving around and dislodged a lead from pacemaker. Confused overnight. Objective Data Objective Data Vital Signs: Vital Signs Temp Pulse Resp BP Pulse Ox O2 Del Method O2 Flow Rate 36.3 C L 88 18 151/84 H 98 Room Air 2 06/16/22 02:20 06/16/22 03:41 06/16/22 02:20 06/16/22 03:41 06/16/22 02:20 06/16/22 02:30 06/15/22 18:30 Oxygen Flow Rate (L/min) 2 Oxygen Delivery Method Room Air Weight: 71.9 kg Body Mass Index (BMI) 22.7 Intake & Output: Intake and Output for Last 24 Hours 06/14/22 06/15/22 06/16/22 23:59 23:59 23:59 Intake Total 52.25 / 52.25 1000 / 1000 Output Total 400 / 400 850 / 850 Balance -347.75 / -347.75 150 / 150 Lab / Micro Data Result Diagrams: 06/15/22 13:00 06/16/22 05:30 Labs: Laboratory Results - last 24 hr 06/15/22 13:00: WBC 5.9, RBC 3.56 L, Hgb 12.3 L, Hct 35.9 L, MCV 100.8 H, MCH 34.6 H, MCHC 34.3, RDW Std Deviation 49.1 H, RDW Coeff of Miguel Ángel 13.1, Plt Count 207, MPV 9.7, Immature Gran % (Auto) 0.300, Neut % (Auto) 78.0 H, Lymph % (Auto) 13.9 L, [place] % (Auto) 6.8, Eos % (Auto) 0.5, Baso % (Auto) 0.5, Absolute Neuts (auto) 4.6, Absolute Lymphs (auto) 0.82 L, Nucleated RBC % 0 06/15/22 13:00: PT 13.1, INR 1.0 06/15/22 13:00: Sodium 141, Potassium 4.4, Chloride 108 H, Carbon Dioxide 26.0, Anion Gap 7, BUN 38 H, Creatinine 1.56 H, Estim Creat Clear Calc 38.41, Est GFR (MDRD) Af Amer 55 L, Est GFR (MDRD) Non-Af 46 L, BUN/Creatinine Ratio 24.4 H, Glucose 120 H, Calcium 9.4, Troponin I High Sens 58, TSH 1.96 06/15/22 15:43: POC Glucose 103 06/16/22 05:30: Sodium 139, Potassium 4.0, Chloride 109 H, Carbon Dioxide 22.0, Anion Gap 8, BUN 31 H, Creatinine 1.33 H, Estim Creat Clear Calc 45.05, Est GFR (MDRD) Af Amer 67, Est GFR (MDRD) Non-Af 55 L, BUN/Creatinine Ratio 23.3 H, Glucose 109 H, Calcium 9.2 Radiography Diagnostic Testing: Radiology Impression Chest X-Ray 06/15/22 13:04 IMPRESSION: Hyperinflation. The lungs are clear. Electronically Signed: Nikolas Shabazz MD at 13:29 EDT , Echocardiogram 06/15/22 15:06 Interpretation Summary Normal LV size. Left ventricular systolic function is normal. The estimated ejection fraction is 60 %. Pulmonary artery systolic pressure is 49 mmHg. Peak aortic valve gradient 39 mmHg. Mild to moderate aortic stenosis. Mean aortic valve gradient 16 mmHg. Ordering Physician: Von Malik MD Referring Physician: [facility] Performed By: Melody Bustillos, QI Chest X-Ray 06/16/22 05:55 IMPRESSION: 1. Calcified granuloma left lower lobe. 2. Hyperinflation. 3. AV sequential pacemaker leads in good position. 4. Dextroscoliosis lower thoracic spine. 5. No pneumothorax. Electronically Signed: Monty Jaquez MD at 5:12 EDT , Rhythm Strip Rhythm Strip: Third-degree heart block Rate: 29 Ectopy: None Physical Exam Const alert and no apparent distress HEENT head/scalp atraumatic Resp normal respiratory effort, no retractions, no use of accessory muscles and clear to auscultation bilaterally Cardio regular rate, regular rhythm, S1 normal heart sound and S2 normal heart sound GI normal to inspection, nondistended, normoactive bowel sounds Assessment & Plan Assessment/Plan (1) Third degree heart block: PLAN: Resolved s/p Pacemaker dual chamber on 06/15 Atrial lead dislodged on 06/16. Replaced again today. (2) Syncope: PLAN: Secondary to above PLAN: Plan Chronic conditions * Parkinson disease: Continue with Sinemet 06/15: Patient initially wanted to be DNR Comfort Care arrest no intubation. Discussed with him that that certainly his decision but the it would potentially limit us in regards to resuscitation if he were to be closely in the pacemaker and went to cardiac arrest. He is agreeable to being full code until the pacemaker can be placed and then revert back to his DNR Comfort Care arrest no intubation status. Eventual plan is for patient to return back to hospice. Patient has hospice services as he is progressively declining given his Parkinson's disease but is not in a terminal condition at this point time according to his family. It appears that his hospice services are more along the lines of palliative services. After pacemaker was placed, code reverted back to DNRCCA, DNI. Charges/Coding Visit Charges Inpatient E&M: 22737 Subs Hosp L2
--- NOTE | 2022-06-16 10:20 | CASEMGMT ---
Patient was in the inpatient Hospice Unit. DEE called Massiel at Hospice and the plan is for patient to return to their inpatient unit. DEE let Massiel know it will be tomorrow. [place]
--- NOTE | 2022-06-16 10:27 | PCM.PN.CARD ---
Subjective Subjective Patient seen and evaluated did well overnight but was quite restless. Pacemaker check today had demonstrated evidence of atrial lead dislodgment. Was taken back to the Science Education Professor. Objective Data Vital Signs: Vital Signs Temp Pulse Resp BP Pulse Ox O2 Del Method O2 Flow Rate 97.4 F L 88 18 151/84 H 98 Room Air 2 06/16/22 02:20 06/16/22 03:41 06/16/22 02:20 06/16/22 03:41 06/16/22 02:20 06/16/22 02:30 06/15/22 18:30 Oxygen Flow Rate (L/min) 2 Oxygen Delivery Method Room Air Weight: 158 lb 8.198 oz Body Mass Index (BMI) 22.7 Intake & Output: Intake and Output for Last 24 Hours 06/14/22 06/15/22 06/16/22 23:59 23:59 23:59 Intake Total 52.25 / 52.25 1000 / 1000 Output Total 400 / 400 850 / 850 Balance -347.75 / -347.75 150 / 150 Lab / Micro Data Result Diagrams: 06/15/22 13:00 06/16/22 05:30 Labs: Laboratory Results - last 24 hr 06/15/22 13:00: WBC 5.9, RBC 3.56 L, Hgb 12.3 L, Hct 35.9 L, MCV 100.8 H, MCH 34.6 H, MCHC 34.3, RDW Std Deviation 49.1 H, RDW Coeff of Miguel Ángel 13.1, Plt Count 207, MPV 9.7, Immature Gran % (Auto) 0.300, Neut % (Auto) 78.0 H, Lymph % (Auto) 13.9 L, Schuyler % (Auto) 6.8, Eos % (Auto) 0.5, Baso % (Auto) 0.5, Absolute Neuts (auto) 4.6, Absolute Lymphs (auto) 0.82 L, Nucleated RBC % 0 06/15/22 13:00: PT 13.1, INR 1.0 06/15/22 13:00: Sodium 141, Potassium 4.4, Chloride 108 H, Carbon Dioxide 26.0, Anion Gap 7, BUN 38 H, Creatinine 1.56 H, Estim Creat Clear Calc 38.41, Est GFR (MDRD) Af Amer 55 L, Est GFR (MDRD) Non-Af 46 L, BUN/Creatinine Ratio 24.4 H, Glucose 120 H, Calcium 9.4, Troponin I High Sens 58, TSH 1.96 06/15/22 15:43: POC Glucose 103 06/16/22 05:30: Sodium 139, Potassium 4.0, Chloride 109 H, Carbon Dioxide 22.0, Anion Gap 8, BUN 31 H, Creatinine 1.33 H, Estim Creat Clear Calc 45.05, Est GFR (MDRD) Af Amer 67, Est GFR (MDRD) Non-Af 55 L, BUN/Creatinine Ratio 23.3 H, Glucose 109 H, Calcium 9.2 Rhythm Strip Rhythm Strip: Third-degree heart block Rate: 29 Ectopy: None Cardiology Labs/Tests 06/15/22 13:00: WBC 5.9, RBC 3.56 L, Hgb 12.3 L, Hct 35.9 L, MCV 100.8 H, MCH 34.6 H, MCHC 34.3, Plt Count 207, MPV 9.7, Immature Gran % (Auto) 0.300, Neut % (Auto) 78.0 H, Lymph % (Auto) 13.9 L, Schuyler % (Auto) 6.8, Eos % (Auto) 0.5, Baso % (Auto) 0.5, Absolute Neuts (auto) 4.6, Nucleated RBC % 0 06/15/22 13:00: PT 13.1, INR 1.0 06/15/22 13:00: Sodium 141, Potassium 4.4, Chloride 108 H, Carbon Dioxide 26.0, Anion Gap 7, BUN 38 H, Creatinine 1.56 H, Est GFR (MDRD) Af Amer 55 L, Est GFR (MDRD) Non-Af 46 L, BUN/Creatinine Ratio 24.4 H, Glucose 120 H, Calcium 9.4 06/16/22 05:30: Sodium 139, Potassium 4.0, Chloride 109 H, Carbon Dioxide 22.0, Anion Gap 8, BUN 31 H, Creatinine 1.33 H, Est GFR (MDRD) Af Amer 67, Est GFR (MDRD) Non-Af 55 L, BUN/Creatinine Ratio 23.3 H, Glucose 109 H, Calcium 9.2 Rhythm: EKG: ECHO: Stress Test: Cardiac Cath: PCI: CT Surgery: Holter monitor: EPS: PPM: CXR: Chest CT Scan: Radiography Diagnostic Testing: Radiology Impression Chest X-Ray 06/15/22 13:04 IMPRESSION: Hyperinflation. The lungs are clear. Electronically Signed: Nikolas Shabazz MD at 13:29 EDT , Echocardiogram 06/15/22 15:06 Interpretation Summary Normal LV size. Left ventricular systolic function is normal. The estimated ejection fraction is 60 %. Pulmonary artery systolic pressure is 49 mmHg. Peak aortic valve gradient 39 mmHg. Mild to moderate aortic stenosis. Mean aortic valve gradient 16 mmHg. Ordering Physician: Von Malik MD Referring Physician: ZA NGO Performed By: Melody Bustillos [facility] Chest X-Ray 06/16/22 05:55 IMPRESSION: 1. Calcified granuloma left lower lobe. 2. Hyperinflation. 3. AV sequential pacemaker leads in good position. 4. Dextroscoliosis lower thoracic spine. 5. No pneumothorax. Electronically Signed: Monty Jaquez MD at 5:12 EDT , Physical Exam Const alert and no apparent distress Constitutional Narrative: Weak voice and quires repeating things so they could understand better. Nontoxic. HEENT normocephalic and hearing grossly normal bilaterally Resp normal respiratory effort, no retractions, no use of accessory muscles and clear to auscultation bilaterally Cardio Cardio Narrative: Bradycardic, irregular GI normal to inspection, nondistended, normoactive bowel sounds, soft to palpation, non-tender, non-distended and hepatosplenomegaly Extremity normal to inspection and full ROM Extremity Narrative: Pulses are strong though bradycardic. 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 Atrial lead was dislodged this morning was taken back to the cardiac catheterization lab and repositioned successfully. We will plan on watching patient for a few hours and then discharged with outpatient follow-up. Thank you for allowing me to participate in the care of your patient. Please don't hesitate to call if any issues arise.
--- NOTE | 2022-06-16 10:29 | PCM.OP.BLANK ---
Operative Report Date of Procedure: 06/16/22 Repositioning of atrial lead The patient was brought back to the cardiac catheterization lab after it was determined that the atrial lead had dislodged. This was confirmed on the fluoroscopy. After the patient was administered 2 g of intravenous Ancef the patient was draped and the pacemaker pocket opened. The generator was explanted and the atrial lead was disconnected. The screw was retracted under fluoroscopic guidance. The atrial lead was then repositioned with adequate numbers suggesting adequate threshold and pacing and impedance. The ventricular lead was also reinterrogated. The suture sleeve was secured with 3-0 silk. The pocket was then rinsed and then the pocket was closed in 2 layers with 3-0 and 4-0 Vicryl. Patient tolerated the procedure well.
--- NOTE | 2022-06-16 11:07 | DCINST_ITS ---
Discharge Instructions Diet Discharge Diet: No restrictions Activity Discharge Activity: May Not Drive Additional Activity Instructions:: May shower or bathe on [day 3]. Do not scrub the incision or soak in the tub. Just wash with soap and let the water run over the incision. Gently pat dry with towel. Medications: Take your pain medication as directed. Refer to your discharge instruction sheet for a list of medications you are to take. Dressing / Incision Call your doctor if your incision/area has: Continuous Slow Oozing, Sudden Increased Bleeding, Increased Pain/ Swelling, Increased Redness, Foul Smelling Discharge and Swelling at the incision site Call your doctor if you observe: Fever of 101 or Higher, Shortness of breath, Dizziness, Fainting spells, Swelling in the ankles, Chest pain, Prolonged hiccupping and Increased palpitations (irregular heartbeat) Suture Line Care: Avoid Pulling/Pushing and Avoid Pinching/Bending Additional Dressing/Incision Instructions:: When dressing is removed, wash and dry incision. Keep covered with a light bandage if it is rubbing against your clothing. Do not cover the incision with an airtight bandage. Change the bandage daily. Do not remove steri strips. The strips will fall off on their own. Follow Up Care Please Follow Up With: Von Malik MD When: Pacer follow up on 06/29 at 2 pm Test Results: Test results from this visit will be discussed in further detail at your follow- up appointment, if applicable. Discharge Plan Admission Admit Date/Time: 06/15/22 15:12 Attending Provider: Nahid Arthur Primary Care Provider: Miranda Eagle Consulting Providers: Von Malik Discharge Orders/Prescriptions Prescriptions: No Action ascorbic acid (vitamin C) [Vitamin C] 1,000 MG tablet 1,000 mg PO BID carbidopa-levodopa 1 TABLET tablet 1 tab PO 4X/DAY coenzyme Q10 [Co Q-10] 100 MG capsule 100 mg PO DAILY Fish Oil 1 EACH capsule 1 ea PO DAILY lisinopril 10 mg tablet 10 mg PO DAILY Label Comments: TAKE 1 TABLET BY MOUTH EVERY DAY sennosides [senna] 8.6 mg Tablet 8.6 mg PO BID carbidopa-levodopa 50-200 mg Tablet Extended Release 1 tab PO BID lorazepam [Ativan] 0.5 mg Tablet 0.5 mg PO QHS oxycodone 5 mg Tablet 5 mg PO QHS Referrals / Follow Up: Miranda Eagle, [facility] [Primary Care Provider] -
[2022-06-16] MEDS: Ascorbic Acid 500 MG Tablet 2000 MG PO (11:35)
[2022-06-16] MEDS: CARBIDOPA/LEVODOPA CR 50/200 Tablet PO (11:36)
[2022-06-16] MEDS: Senna Tablet 1 TABLET PO (11:36)
--- NOTE | 2022-06-16 12:59 | CASEMGMT ---
Physician said patient may go today. SW called Massiel at Hospice and let her know this information. Mayte Gonzalez LOCAL HAZMAT DRIVER PADMINI
--- NOTE | 2022-06-16 13:50 | DS.PCM_ITS ---
Providers Date of Admission: 06/15/22 Primary Care Physician: ROCHELLE KeenanC Consultations 06/15/22 17:50 Consult: Cardiology Routine Consulting Provider: Von Malik Reason for Consult: 3rd degree heart block EMERGENT Consult: No MD Notified: Yes Date Notified: 06/15/22 Time Notified: 15:16 Method of Notification: Verbal Reason For Visit: 3RD DEGREE HEART BLOCK, BRADYCARDIA, SYNCOPE Diagnosis Discharge Diagnosis (1) Third degree heart block: Status: Acute Code(s): I44.2 - Atrioventricular block, complete Plan: Resolved s/p Pacemaker dual chamber on 06/15 Atrial lead dislodged on 06/16. Replaced again today. (2) Syncope: Status: Acute Code(s): R55 - Syncope and collapse Plan: Secondary to above Plan Chronic conditions * Parkinson disease: Continue with Sinemet 06/15: Patient initially wanted to be DNR Comfort Care arrest no intubation. Discussed with him that that certainly his decision but the it would potentially limit us in regards to resuscitation if he were to be closely in the pacemaker and went to cardiac arrest. He is agreeable to being full code until the pacemaker can be placed and then revert back to his DNR Comfort Care arrest no intubation status. Eventual plan is for patient to return back to hospice. Patient has hospice services as he is progressively declining given his Parkinson's disease but is not in a terminal condition at this point time according to his family. It appears that his hospice services are more along the lines of palliative services. After pacemaker was placed, code reverted back to DNRCCA, DNI. Medications at Discharge Home Medications ascorbic acid (vitamin C) 1,000 mg tablet (Vitamin C) 1,000 mg PO BID SUPPLEMENT 09/06/17 carbidopa 25 mg-levodopa 100 mg tablet 1 tab PO 4X/DAY PARKINSONS 09/06/17 coenzyme Q10 100 mg capsule (Co Q-10) 100 mg PO DAILY SUPPLEMENT 09/06/17 omega-3 fatty acids-fish oil 340 mg-1,000 mg capsule (Fish Oil) 1 ea PO DAILY SUPPLEMENT 09/06/17 carbidopa ER 50 mg-levodopa 200 mg tablet,extended release 1 tab PO BID parkinsons 06/15/22 lisinopril 10 mg tablet 10 mg PO DAILY 06/15/22 lorazepam 0.5 mg tablet (Ativan) 0.5 mg PO QHS anxiety 06/15/22 oxycodone 5 mg tablet 5 mg PO QHS pain 06/15/22 sennosides 8.6 mg tablet (senna) 8.6 mg PO BID constipation 06/15/22 Hospital Course Operations None Procedures - (pacemaker) Summary of Care Provided Minutes Spent on Discharge: 35 Hospital Course: 82-year-old male presents with syncope. Patient was found to be in third-degree heart block with heart rate into the 20s and 30s. Cardiology was contacted and patient underwent a permanent place maker placed on the . Patient was moving around quite a bit and actually dislodged atrial lead which was replaced on the without complication. On patient had some confusion overnight but does have Parkinson's did improve. Patient was in hospice though he is not more palliative at this point in time therefore is why he had a pacemaker placed. Patient is currently in hospice unit for respite care for the family. I states that he goes there about 5 days/month but otherwise stays at home. Patient will return to the hospice to continue with the respite care. Patient's CODE STATUS DNR Comfort Care arrest no intubation. Patient is in hospice services but not actively time due to some qualifying diagnoses with his Parkinson's disease given the gradual decline that he is experiencing. Weight / BMI Weight Weight: 71.9 kg Body Mass Index (BMI) 22.7 ABG / Lab / Microbiology Data Result Diagrams: 06/15/22 13:00 06/16/22 05:30 Laboratory: Laboratory Results - last 24 hr 06/15/22 15:43: POC Glucose 103 06/16/22 05:30: Sodium 139, Potassium 4.0, Chloride 109 H, Carbon Dioxide 22.0, Anion Gap 8, BUN 31 H, Creatinine 1.33 H, Estim Creat Clear Calc 45.05, Est GFR (MDRD) Af Amer 67, Est GFR (MDRD) Non-Af 55 L, BUN/Creatinine Ratio 23.3 H, Glucose 109 H, Calcium 9.2 Radiography Diagnostic Testing: Radiology Impression Echocardiogram 06/15/22 15:06 Interpretation Summary Normal LV size. Left ventricular systolic function is normal. The estimated ejection fraction is 60 %. Pulmonary artery systolic pressure is 49 mmHg. Peak aortic valve gradient 39 mmHg. Mild to moderate aortic stenosis. Mean aortic valve gradient 16 mmHg. Ordering Physician: Von Malik MD Referring Physician: ZA EAGLE Performed By: Melody Bustillos, [facility] Chest X-Ray 06/16/22 05:55 IMPRESSION: 1. Calcified granuloma left lower lobe. 2. Hyperinflation. 3. AV sequential pacemaker leads in good position. 4. Dextroscoliosis lower thoracic spine. 5. No pneumothorax. Electronically Signed: Monty Jaquez MD at 5:12 EDT , D/C Instructions Discharge Diet: No restrictions Additional Activity Instructions: May shower or bathe on [day 3]. Do not scrub the incision or soak in the tub. Just wash with soap and let the water run over the incision. Gently pat dry with towel. Medications: Take your pain medication as directed. Refer to your discharge instruction sheet for a list of medications you are to take. Call your doctor if your incision/area has: Continuous Slow Oozing, Sudden Increased Bleeding, Increased Pain/ Swelling, Increased Redness, Foul Smelling Discharge and Swelling at the incision site Call your doctor if you observe: Fever of 101 or Higher, Shortness of breath, Dizziness, Fainting spells, Swelling in the ankles, Chest pain, Prolonged hiccupping and Increased palpitations (irregular heartbeat) Suture Line Care: Avoid Pulling/Pushing and Avoid Pinching/Bending Additional Dressing/Incision Instructions: When dressing is removed, wash and dry incision. Keep covered with a light bandage if it is rubbing against your clothing. Do not cover the incision with an airtight bandage. Change the bandage daily. Do not remove steri strips. The strips will fall off on their own. Please Follow Up With: Von Malik MD When: Pacer follow up on 06/29 at 2 pm Meaningful Use Info Meaningful Use Diagnoses (Choose all that apply): None applicable Discharge Plan Admission Admit Date/Time: 06/15/22 15:12 Primary Reason for Your Visit: complete heart block. Attending Provider: Nahid Arthur Primary Care Provider: Za Eagle Consulting Providers: Von Malik Discharge Orders/Prescriptions Prescriptions: Continued ascorbic acid (vitamin C) [Vitamin C] 1,000 MG tablet 1,000 mg PO BID carbidopa-levodopa 1 TABLET tablet 1 tab PO 4X/DAY coenzyme Q10 [Co Q-10] 100 MG capsule 100 mg PO DAILY Fish Oil 1 EACH capsule 1 ea PO DAILY lisinopril 10 mg tablet 10 mg PO DAILY Label Comments: TAKE 1 TABLET BY MOUTH EVERY DAY sennosides [senna] 8.6 mg Tablet 8.6 mg PO BID carbidopa-levodopa 50-200 mg Tablet Extended Release 1 tab PO BID lorazepam [Ativan] 0.5 mg Tablet 0.5 mg PO QHS oxycodone 5 mg Tablet 5 mg PO QHS Referrals / Follow Up: [facility] [Provider Group] - 06/29/22 2:00 pm Za Eagle, [employer] [Primary Care Provider] - Within 2 Weeks Disposition Disposition (needs filled in before D/C Order can be placed): Hospice in Medical Facility Charges/Coding Visit Charges Inpatient E&M: 60557 Disch Hosp >30min
--- NOTE | 2022-06-16 14:30 | CASEMGMT ---
DEE spoke with Massiel at Hospice and let her know patient will be returning today. Hospice's mobile unit can transport patient. DEE spoke with patient's Ramu and let her know that SW has been communicating with Hospice and they are aware he will be coming back today. DEE let Ramu know that Hospice will transport patient when ready. Mayte Gonzalez TANK DRIVER PADMINI
--- NOTE | 2022-06-16 15:22 | CASEMGMT ---
Patient's discharge is in computer. William from Hospice called DEE and said she wanted to know if patient's is willing to sign for patient. DEE spoke with patient's and she is willing to sign papers. She will head over to Hospice now. DEE called William to let her know about patient's coming over. Massiel was also present with William and their mobile unit will come sweet pickled fruit maker patient right now. DEE notified RN, secretary bookkeeper, patient's , and daughter. Plan: Return to [facility] inpatient unit. Mayte [place]
--- NOTE | 2022-06-16 15:33 | PHA.DC.MR ---
Pharmacy Service has performed discharge medication reconciliation for this patient. Home Medications ascorbic acid (vitamin C) 1,000 mg tablet (Vitamin C) 1,000 mg PO BID SUPPLEMENT 09/06/17 carbidopa 25 mg-levodopa 100 mg tablet 1 tab PO 4X/DAY PARKINSONS 09/06/17 coenzyme Q10 100 mg capsule (Co Q-10) 100 mg PO DAILY SUPPLEMENT 09/06/17 omega-3 fatty acids-fish oil 340 mg-1,000 mg capsule (Fish Oil) 1 ea PO DAILY SUPPLEMENT 09/06/17 carbidopa ER 50 mg-levodopa 200 mg tablet,extended release 1 tab PO BID parkinsons 06/15/22 lisinopril 10 mg tablet 10 mg PO DAILY 06/15/22 lorazepam 0.5 mg tablet (Ativan) 0.5 mg PO QHS anxiety 06/15/22 oxycodone 5 mg tablet 5 mg PO QHS pain 06/15/22 sennosides 8.6 mg tablet (senna) 8.6 mg PO BID constipation 06/15/22 The patient's discharge medication list was reviewed for discrepancies and discrepancies were resolved.
--- NOTE | 2022-06-16 15:52 | NURSING ---
report called to Mary Anne ANDREWS at [facility]
== END 2022-06-16 16:47 | disposition hospice, inpatient (51) | DRG 243 ==
LOC: ED 14:09 → PCU 14:45
PROVIDERS: Emergency Provider Emergency Medicine; PCP Nurse Practitioner Family
DX: I44.2 Atrioventricular block, complete (principal); T82.120A Displacement of cardiac electrode, initial encounter; G20 Parkinson's disease; Z95.0 Presence of cardiac pacemaker; Z51.5 Encounter for palliative care; Z98.1 Arthrodesis status
CPT/HCPCS: 33208; 33215; 36415; 71045; 71047; 80048; 82962; 84443; 84484; 85025; 85610; 93005; 93308; 99152; 99153; 99285; J7030; J7050; Q9967; A4216; C1894